=== PATIENT | female | born 1975 | race Caucasian/White ===

== ENCOUNTER 2025-05-10 01:01 | Inpatient (IN) | payer OTHER ==
--- OUTSIDE RECORDS SUMMARY | 2025-05-10 01:10 | XMS REPORT | Continuity of Care Document ---
Author Name Unknown Address [address] [facility] [address] [place] [address] Organization [facility] [place] Address [address] [facility] [address] [place] [address] Care Team Providers Care Barrel Repairer Name Role Phone Eduin Freedman Primary Care Physician + [phone] Karolyn Arceo MD Attending Clinician [phone] Vick Beyer MD Attending Clinician [phone] KAROLYN ARCEO Attending Clinician Unavailable Doctor Unassigned, Bow Attending Clinician U amyailVICK Tubbs Attending Clinician UnavailVICK Lopez Attending Clinician UnavailZehra Jordan Attending Clinician +[phone] SAGAR TRONCOSO Attending Clinician Unavailable SAGAR TRONCOSO Attending Clinician Unavailable Claudine Davis Attending Clinician Unavailable Shaye Wilks MD Attending Clinician [phone] Mark Santiago MD Attending Clinician +[phone] XOCHILT KESSLER Attending Clinician Unavailable XOCHILT KESSLER Attending Clinician Unavailable Cecy Davis Attending Clinician U lina Magallon [facility], Patricia A Attending Clinician Unavail able Laura Arguelles Attending Clinician Unavailkatie Kessler MD, Xochilt Attending Clinician [phone] ALINE BOWDEN Attending Clinician Unavailable Gabby VARGAS, Merrill Attending Clinician [phone] Camden Stokes MD Attending Clinician [phone] Lab, Ang - Db Attending Clinician Unavailable CAMDEN STOKES Attending Clinician Unavailable JULISSA ESPINOZA Attending Clinician UnavailJulissa Beach MD Attending Clinician [phone] Eliazar Marte Attending Clinician Unavailable Cecy Davis Attending Clinician U Vick Ibarra MD Attending Clinician [phone] ZEHRA LOCKETT Attending Clinician Unavailable Zehra Brush Attending Clinician + [phone] Shaye Wilks MD Attending Clinician +[phone] Laura Arguelles Attending Clinician Unavailkatie SIMONS Attending Clinician Unavailable Asa Wolfe MD Attending Clinician [phone] Gail Ellis RN Attending Clinician Unavailabl e ELSIE BOND Attending Clinician Unavailable Fredrick TUBBS, Jovita Mandel Attending Clinician [phone] Mehul Dennison MD Attending Clinician [phone] Elsie Bond MD Attending Clinician + [phone] SANDY THOMPSON Attending Clinician Unavailabl e Pgy4 Attending Clinician Unavailable Sandy Thompson MD Attending Clinician + [phone] Doctor Unassigned, Bow Attending Clinician U SHAYE Winchester Attending Clinician Unavailable ROHAN CHUNG Attending Clinician Unavailable Rohan Chung MD Attending Clinician [phone] Navi Shirley Attending Clinician [phone] SELENA MAJOR Attending Clinician Unavailable Selena Major MD Attending Clinician NAVI AGUDELO Attending Clinician Unavailable KYUNG Attending Clinician Unavailable Claudine Davis Admitting Clinician Unavailable Eduin Freedman Admitting Clinician Unavaila ronald ROUSE_F Admitting Clinician Unavailable VICK BEYER Admitting Clinician UnavailSELENA Torres Admitting Clinician Unavailable KYUNG Admitting Clinician Unavailable Payers Payer Name Policy Type Policy Number Effective Date Expirati on Date Source [employer] DUAL COMPLETE HMO DSNP [id number] 2024 00:00:00 [facility] Dual Complete (HMO-POS D-SNP) 111 [id number] [facility] DUAL COMP HMO-POS D SNP [id number] 2024 00:00:00 2025 00:00:00 [facility] [id number] 2024 00:00:00 INDIGENT PROGRAM [id number] Problems Condition Name Condition Details Condition Category Status Onset Date Resolution Date Last Treatment Date Treating Clinician Comments Source Bipolar disorder Bipolar Disorder Problem Active 2023-08 0 00:00: 00 [facility] History of laparoscop ic adjustable gastric banding History of Laparoscop ic Adjustable Gastric Banding Problem Active 03-28 00:00: 00 [facility] Type 2 diabetes mellitus with hyperglyce latesha, with long-term current use of insulin Type 2 diabetes mellitus with hyperglyce latesha, with long-term current use of insulin Disease Active 12-14 00:00: 00 [facility] Dyslipidem ia Dyslipidem ia Disease Active 12-14 00:00: 00 [facility] Essential hypertensi on Essential hypertensi on Disease Active 12-14 00:00: 00 [facility] Type 2 diabetes mellitus with unspecifie d diabetic retinopath y without macular edema Type 2 diabetes mellitus with unspecifie d diabetic retinopath y without macular edema Disease Active 12-14 00:00: 00 [facility] Tachycardi a Tachycardi a Problem Active 2022-08 2 [facility] Other specified diabetes mellitus with other specified complicati on, unspecifie d whether gaming investigator insulin use Other specified diabetes mellitus with other specified complicati on, unspecifie d whether gaming investigator insulin use Disease Active 2022-08 2 00:00: 00 [facility] Microscopi c hematuria Microscopi c Hematuria Problem Active 2022-08 0-03 00:00: 00 [facility] Migraine Migraine Problem Active 2022-08 0-02 [facility] Neuropathy due to diabetes mellitus Neuropathy Due to Diabetes Mellitus Problem Active 2022-08 0-02 00:00: [facility] Seasonal allergy Seasonal Allergy Problem Active 2022-08 0-02 00:00: 00 [facility] Abnormal vaginal bleeding Abnormal Vaginal Bleeding Problem Active 2022-08 0-02 00:00: 00 [facility] Malaise Malaise Problem Active 2022-08 0-02 00:00: 00 [facility] Amputated below knee Amputated below Knee Problem Active 2022-08 0-02 00:00: 00 [facility] Long-term drug therapy Long-term Drug Therapy Problem Active 2022-08 0-02 00:00: 00 [facility] Prosthesis care Prosthesis Care Problem Active 2022-08 0-02 00:00: 00 [facility] Genital herpes simplex Genital Herpes Simplex Problem Active 2022-08 0-02 00:00: 00 [facility] Insulin treated type 2 diabetes mellitus Insulin Treated Type 2 Diabetes Mellitus Problem Active 2022-08 0-02 00:00: 00 [facility] Mixed anxiety and depressive disorder Mixed Anxiety and Depressive Disorder Problem Active 2022-08 0-02 00:00: 00 [facility] Insomnia Insomnia Problem Active 2022-08 0-02 00:00: 00 [facility] Bipolar 1 disorder Bipolar 1 disorder Disease Active 11-26 00:00: 00 [facility] Major depression Major depression Disease Active 11-26 00:00: 00 [facility] Severe anxiety Severe anxiety Disease Active 11-26 00:00: 00 [facility] Supervisio n of high-risk of elderly primigravi da Supervisio n of high-risk of elderly primigravi da Disease Active 2013-08 00:00: 00 [facility] HSV infection HSV infection Disease Active 2013-08 00:00: 00 [facility] H/O laparoscop ic adjustable gastric banding H/O laparoscop ic adjustable gastric banding Disease Active 2013-08 00:00: 00 [facility] History of hypertensi on History of hypertensi on Disease Active 2013-08 00:00: 00 [facility] History of diabetes mellitus History of diabetes mellitus Disease Active 2013-08 00:00: 00 [facility] Obesity complicati ng , childbirth , or puerperium , antepartum Obesity complicati ng , childbirth , or puerperium , antepartum Disease Active 2013-08 00:00: 00 Overview: Formattin g of this note might be different from the original. ICD10 Diagnosis Term Coding Tech Utility [facility] Lump or mass in breast Lump or mass in breast Disease Active 2013-08 00:00: 00 Overview: Formattin g of this note might be different from the original. Right breast, per patient, assess at next visit. NA PEPE CNM 4 2:[address] [facility] Glucosuria Glucosuria Disease Active 2013-08 00:00: 00 [facility] Rubella non-immune status, antepartum Rubella non-immune status, antepartum Disease Active 2013-08 00:00: 00 [facility] [id number] Severe episode of recurrent major depressive disorder, without psychotic features Problem [facility] [id number] group home (current) use of insulin Problem [facility] [id number] Type 2 diabetes mellitus with hyperglyce latesha Problem [facility] [id number] Neuropathy Problem [facility] [id number] Status post below-knee amputation of left lower extremity Problem [facility] Allergies, Adverse Reactions, Alerts Allergy Name Allergy Type Status Severity Reaction(s) Onset Date Inactive Date Treating Clinician Comments Source No Known Allergie s DA Active U 7- 00:00: 00 [facility] COCONUT DRUG INGREDI Active Anaphylaxis 0 12-14 00:00: 00 [facility] PEACH DRUG INGREDI Active Hives 0 12-14 00:00: 00 [facility] STRAWBER RY DRUG INGREDI Active Hives 0 12-14 00:00: 00 [facility] Coconut Propensi ty to adverse reaction s Active Swelling 12-14 00:00: 00 [facility] [place] Propensi ty to adverse reaction s Active Swelling 0 12-14 00:00: 00 [facility] Strawber ry Propensi ty to adverse reaction s Active Rash 12-14 00:00: 00 [facility] coconut allergen ic extract coconut allergen ic extract Active Unknown [facility] NO KNOWN ALLERGIE S Drug Class Active [facility] Family History Family Member Diagnosis Comments Start Date Stop Date Sourc e Maternal aunt Diabetes [facility] Maternal aunt Heart [facility] Maternal [facility] Maternal grandmother Arthritis [facility] Maternal grandmother Cancer [facility] Maternal grandmother Diabetes [facility] Maternal grandmother Heart [facility] Maternal grandmother High cholesterol [facility] Maternal grandmother Hypertension [facility] Maternal [facility] uncle [facility] Maternal [facility] Natural mother Arthritis [facility] Natural mother Hy[facility] Paternal aunt Breast [facility] Paternal grandfather Cancer [facility] Social History Social Habit Start Date Stop Date Quantity Comments Source ASSERTION Not [facility] History of Social function 2025-01-30 00:00:00 2025-01-30 00:00:00 [facility] Alcoholic beverage intake 2024-09-27 00:00:00 2024-09-27 00:00:00 Current non-drinker of alcohol (finding) [facility] Alcohol intake 2023-12-15 00:00:00 2023-12-15 00:00:00 Current non-drinker of alcohol (finding) [facility] History of Tobacco Use 1991-08-21 00:00:00 2015-08-21 00:00:00 [facility] Tobacco use and exposure 2014-08-01 00:00:00 2014-08-01 00:00:00 Smokeless tobacco non-user [facility] Smoking Status Start Date Stop Date Source Former Smoker 2025-03-28 00:00:00 2025-03-28 00:00:00 [facility] Never smoked tobacco [facility] Medications Ordered Medication Name Filled Medication Name Start Date Stop Date Current Medication? Ordering Clinician Indication Dosage Frequency Signature (SIG) Comments Components Source Blood-Gluco se Sensor (DEXCOM G7 SENSOR) Ciara 04-08 00:00: 00 Yes [id number] 9109 Change sensor every [address] [facility] Lyrica 200 MG Lyrica 200 MG 03-28 00:00: 00 No 1{capsu le} BID Lyrica 200 MG Blood-Gluco se Sensor (DEXCOM G7 SENSOR) Ciara 10-05 00:00: 00 Yes [id number] 9109 Change sensor every [address] [facility] Blood-Gluco se Sensor (DEXCOM G7 SENSOR) Ciara 10-05 00:00: 00 04-08 00:00 :00 No [id number] 9109 Change sensor every [address] [facility] pregabalin 200 mg capsule 2-06 00:00: 00 Yes [id number] 9106 200mg Take 1 capsule by mouth in the morning and 1 capsule in the evening. [facility] glucagon (BAQSIMI) 3 mg/actuatio n nasal spray 2023-08 030 00:00: 00 Yes [id number] 9109 3mg Use 3 mg in each nostril as needed (For severe hypoglycem ia or symptomati c not improving with food). [facility] insulin pump cart,auto,B T,G6/7 (OMNIPOD 5 G6-G7 PODS, GEN 5,) [facility] 2023-08 0 00:00: 00 Yes [id number] 9109 1{each} inject 1 Each under the skin every 72 (seventy-t wo) hours. [facility] atorvastati n 20 mg tablet 2023-08 0 00:00: 00 Yes [id number] 20mg Take 1 tablet by mouth at bedtime. [facility] insulin car body mechanic cart,aut,G6 /7,cntr (OMNIPOD 5 G6-G7 INTRO KT,GEN5,) [facility] 2023-08 0-16 00:00: 00 Yes [id number] 9109 1{each} inject 1 Each under the skin every 72 (seventy-t wo) hours. [facility] insulin pump cart,auto,B T,G6/7 (OMNIPOD 5 G6-G7 PODS, GEN 5,) [facility] 2023-08 0-16 00:00: 00 Yes [id number] 9109 1{each} inject 1 Each under the skin every 72 (seventy-t wo) hours. [facility] insulin pump cart,auto,B T,G6/7 (OMNIPOD 5 G6-G7 PODS, GEN 5,) [facility] 2023-08 0-16 00:00: 00 06-11 00:00 :00 No [id number] 9109 1{each} inject 1 Each under the skin every 72 (seventy-t wo) hours. [facility] DEXCOM G7 SENSOR Ciara 08 00:00: 00 10-05 00:00 :00 No [id number] 9109 USE DIRECTED, CHANGE SENSOR EVERY [address] [facility] pregabalin 100 mg capsule 03-16 00:00: 00 09-27 00:00 :00 No [id number] 100mg Take 1 capsule by mouth in the morning and 1 capsule in the evening. [facility] triamcinolo ne acetonide (KENALOG) injection 16 mg 02-15 20:15: 00 02-15 19:24 :00 No [id number] 16mg 16 mg, Intramuscu lar, ONCE, 1 dose, On [place] 02/16/24 at 1515, Routine [facility] Blood-Gluco se Meter,Shayne nuous (DEXCOM G7 MINERALOGY TEACHER) [facility] 12-14 00:00: 00 Yes [id number] 9109 Use as directed to check blood sugars DX E11.65 [facility] Blood-Gluco se Meter,Shayne nuous (DEXCOM G7 MINERALOGY TEACHER) [facility] 12-14 00:00: 00 Yes [id number] Use as directed to check blood sugars DX E11.65 [facility] buPROPion XL 300 mg 24 hr tablet 12-14 00:00: 00 07-30 00:00 :00 No [id number] 300mg Take 1 tablet by mouth in the morning. [facility] insulin degludec (TRESIBA FLEXTOUCH U-100) 100 unit/mL (3 mL) InPn 12-14 00:00: 00 07-30 00:00 :00 No [id number] 9109 34U inject 34 Units under the skin in the morning. Please take HALF dose if blood glucose 80 - 120 mg/dL, HOLD if less than 80. [facility] Blood-Gluco se Sensor (DEXCOM G7 SENSOR) Ciara 12-14 00:00: 00 03-29 00:00 :00 No [id number] 1{each} 1 Each by subcutaneo us (via wearable injector) route every 10 (ten) days. Use as directed every [address] [facility] insulin lispro (HUMALOG KWIKPEN INSULIN) 200 unit/mL (3 mL) InPn 12-04 00:00: 00 07-30 00:00 :00 No [id number] 9109 6U inject 6 Units under the skin in the morning and 6 Units at noon and 6 Units in the evening. inject with meals. Please take HALF if blood glucose 80 - 120 mg/dL, HOLD DOSE if BG < [address] [facility] Insulin [place], Disposable, (BD INSULIN PEN NEEDLE UF) 31 gauge x 5/16" Ndle 12-04 00:00: 00 06-06 00:00 :00 No [id number] 9109 Use as directed to administer [facility] Blood-Gluco se Meter,Shayne nuous (DEXCOM G7 MINERALOGY TEACHER) [facility] 12-04 00:00: 00 12-14 00:00 :00 No Use as directed to check blood sugars DX E11.65 [facility] Blood-Gluco se Sensor (DEXCOM G7 SENSOR) Ciara 12-04 00:00: 00 12-14 00:00 :00 No [id number] 9109 Use as directed every [address] [facility] buPROPion XL 300 mg 24 hr tablet 12-04 00:00: 00 12-14 00:00 :00 No 300mg Take 1 tablet by mouth in the morning. [facility] traZODone 50 mg tablet 12-01 00:00: 00 Yes 100mg Take 2 tablets by mouth at bedtime. [facility] Blood-Gluco se Meter,Shayne nuous (DEXCOM G7 MINERALOGY TEACHER) [facility] 12-01 00:00: 00 12-04 00:00 :00 No Use as directed to check blood sugars DX E11.65 [facility] buPROPion XL 300 mg 24 hr tablet 12-01 00:00: 00 12-04 00:00 :00 No 300mg Take 1 tablet by mouth in the morning. [facility] Insulin [place], Disposable, (BD INSULIN PEN NEEDLE UF) 31 gauge x 5/16" Ndle 12 00:00: 00 12-04 00:00 :00 No [id number] Use as directed to administer [facility] insulin lispro (HUMALOG KWIKPEN INSULIN) 200 unit/mL (3 mL) InPn -12 00:00: 00 12-04 00:00 :00 No [id number] 6U inject 6 Units under the skin in the morning and 6 Units at noon and 6 Units in the evening. inject with meals. Please take HALF if blood glucose 80 - 120 mg/dL, HOLD DOSE if BG < [address] [facility] triamcinolo ne acetonide (KENALOG) injection 40 mg 11-16 16:00: 00 11-16 15:10 :00 No 40mg 40 mg, Intramuscu lar, ONCE, 1 dose, On Tue11/17/23 at 1100, Routine [facility] Blood-Gluco se Meter,Shayne rivera (DEXCOM G7 MINERALOGY TEACHER) Misc 2-07 00:00: 00 11-30 00:00 :00 No Use as directed to check blood sugars DX E11.65 [facility] celecoxib (CELEBREX) capsule 200 mg - 05:00: 00 09-06 04:13 :00 No 200mg 200 mg, Oral, ONCE NOW, 1 dose, On Tue09/05/23 at 2300, Routine [facility] traZODone (DESYREL) tablet 50 mg -16 03:30: 00 09-06 02:43 :00 No 50mg 50 mg, Oral, ONCE NOW, 1 dose, On Tue09/05/23 at 2130, Routine [facility] insulin regular human (HUMULIN R) injection 6 Units -15 23:15: 00 09-05 22:43 :00 No 6U 6 Units, Slow IV Push, ONCE, 1 dose, On Tue09/05/23 at 1715, Routine
Indicatio n for insulin: Hyperglyce latesha [facility] NaCl 0.9% (NS) bolus infusion 1,000 mL 09-05 22:30: 00 09-06 01:38 :00 No 1000mL at 999 mL/hr, 1,000 mL, IV Infusion, ONCE, 1 dose, On Tue09/05/23 at 1630, STAT [facility] citalopram 10 mg tablet 2022-08 15:11: Yes 10mg Take 1 tablet by mouth in the morning. [facility] clonazePAM (KLONOPIN) 0.5 mg tablet 2022-08 15:11: 12-01 00:00 :00 No Take 1 tablet as needed by oral route. [facility] insulin degludec (TRESIBA FLEXTOUCH U-100) 100 unit/mL (3 mL) InPn 2022-08 00:00: 00 12-14 00:00 :00 No [id number] 30U inject 30 Units under the skin in the morning. [facility] Blood-Gluco se Sensor (DEXCOM G7 SENSOR) Ciara 2022-08 00:00: 00 12-04 00:00 :00 No [id number] Use as directed every [address] [facility] levonorgest reL (MIRENA) IUD 1 Device 2022-08 21:30: 00 07-13 20:42 :00 No [id number] 1{devic e} [facility] buPROPion XL 150 mg 24 hr tablet 2022-08 00:00: 00 12-01 00:00 :00 No 150mg Take 1 tablet by mouth in the morning. [facility] glipiZIDE 5 mg tablet 2022-08 00:00: 00 08-02 00:00 :00 No Take 2 tablets every day by oral route in the morning for [address] [facility] FARXIGA 10 mg tablet 2023-1 0-02 00:00: 00 12-25 00:00 :00 No 10mg Take 1 tablet by mouth in the morning. [facility] multivitami n ( VITAMIN) tablet 2013-08 00:00: 00 06-10 00:00 :00 No 1{tbl} Take 1 Tab by mouth daily. [facility] celecoxib 200 mg capsule TAKE 1 CAPSULE BY MOUTH TWICE DAILY celecoxib 200 mg capsule TAKE 1 CAPSULE BY MOUTH TWICE DAILY No celecoxib 200 mg capsule TAKE 1 CAPSULE BY MOUTH TWICE DAILY [facility] Dexcom G7 Sensor device CHANGE SENSOR EVERY 10 DAYS Dexcom G7 Sensor device CHANGE SENSOR EVERY 10 DAYS No Dexcom G7 Sensor device CHANGE SENSOR EVERY 10 DAYS [facility] trazodone 100 mg tablet TAKE 1 TABLET BY MOUTH EVERY NIGHT AT BEDTIME NEEDED trazodone 100 mg tablet TAKE 1 TABLET BY MOUTH EVERY NIGHT AT BEDTIME NEEDED No 1 Q1D trazodone 100 mg tablet TAKE 1 TABLET BY MOUTH EVERY NIGHT AT BEDTIME NEEDED [facility] Tresiba FlexTouch U-100 insulin 100 unit/mL (3 mL) subcutaneou s pen INJECT 34 UNITS UNDER THE SKIN EVERY DAY Tresiba FlexTouch U-100 insulin 100 unit/mL (3 mL) subcutaneou s pen INJECT 34 UNITS UNDER THE SKIN EVERY DAY No Tresiba FlexTouch U-100 insulin 100 unit/mL (3 mL) subcutaneo us pen INJECT 34 UNITS UNDER THE SKIN EVERY DAY [facility] citalopram 40 mg tablet TAKE 1 TABLET BY MOUTH DAILY citalopram 40 mg tablet TAKE 1 TABLET BY MOUTH DAILY No citalopram 40 mg tablet TAKE 1 TABLET BY MOUTH DAILY [facility] dapaglifloz in propanediol 10 mg tablet TAKE 1 TABLET BY MOUTH IN THE MORNING dapaglifloz in propanediol 10 mg tablet TAKE 1 TABLET BY MOUTH IN THE MORNING No dapagliflo zin propanedio l 10 mg tablet TAKE 1 TABLET BY MOUTH IN THE MORNING [facility] Dexcom G7 Fitting Room Attendant USE DIRECTED TO CHECK BLOOD SUGARS Dexcom G7 Fitting Room Attendant USE DIRECTED TO CHECK BLOOD SUGARS No Dexcom G7 Fitting Room Attendant USE DIRECTED TO CHECK BLOOD SUGARS [facility] hydroxyzine pamoate 25 mg capsule TAKE 1 CAPSULE BY MOUTH THREE TIMES DAILY NEEDED FOR ITCHING hydroxyzine pamoate 25 mg capsule TAKE 1 CAPSULE BY MOUTH THREE TIMES DAILY NEEDED FOR ITCHING No hydroxyzin e pamoate 25 mg capsule TAKE 1 CAPSULE BY MOUTH THREE TIMES DAILY NEEDED FOR ITCHING [facility] Latuda 20 mg tablet Take 1 tablet every day by oral route. Latuda 20 mg tablet Take 1 tablet every day by oral route. No 1 Q1D Latuda 20 mg tablet Take 1 tablet every day by oral route. [facility] Celecoxib 200 MG Celecoxib 200 MG No Celecoxib 200 MG Atorvastati n Calcium 20 MG Atorvastati n Calcium 20 MG No 1{table t} QD Atorvastat in Calcium 20 MG Dapaglifloz in Propanediol 10 MG Dapaglifloz in Propanediol 10 MG No 1{table t} QD Dapagliflo zin Propanedio l 10 MG Pregabalin 100 MG Pregabalin 100 MG No Pregabalin 100 MG Latuda 20 MG Latuda 20 MG No 1{table t_in_th e_eveni ng_with _food} QD Latuda 20 MG Citalopram Hydrobromid e 10 MG Citalopram Hydrobromid e 10 MG No 1{table t} QD Citalopram Hydrobromi de 10 MG Omnipod 5 [id number] Intro Gen 5 - Omnipod 5 [id number] Intro Gen 5 - No Omnipod 5 [id number] Intro Gen 5 - traZODone HCl 100 MG traZODone HCl 100 MG No 1{table t_at_be dtime} QD traZODone HCl 100 MG hydrOXYzine Pamoate 50 MG hydrOXYzine Pamoate 50 MG No 1{capsu le_at_b edtime_ as_need ed} BID hydrOXYzin e Pamoate 50 MG Insulin Lispro 100 UNIT/ML Insulin Lispro 100 UNIT/ML No Insulin Lispro 100 UNIT/ML Immunizations Ordered Immunization Name Filled Immunization Name Date Status Comments Source Influenza Virus Vaccine Quad IM Multi-dose 6+ MO 2014-08-01 00:00:00 Completed [facility] Influenza Virus Vaccine Quad IM Multi-dose 6+ MO Unknown Completed [facility] Influenza Virus Vaccine Quad IM Multi-dose 6+ MO Unknown Completed [facility] Influenza Virus Vaccine Quad IM Multi-dose 6+ MO Unknown Completed [facility] Influenza Virus Vaccine Quad IM Multi-dose 6+ MO Unknown Completed [facility] Influenza Virus Vaccine Quad IM Multi-dose 6+ MO Unknown Completed [facility] Influenza Virus Vaccine Quad IM Multi-dose 6+ MO Unknown Completed [facility] Influenza Virus Vaccine Quad IM Multi-dose 6+ MO Unknown Completed [facility] Influenza Virus Vaccine Quad IM Multi-dose 6+ MO Unknown Completed [facility] Influenza Virus Vaccine Quad IM Multi-dose 6+ MO Unknown Completed [facility] Influenza Virus Vaccine Quad IM Multi-dose 6+ MO Unknown Completed [facility] Influenza Virus Vaccine Quad IM Multi-dose 6+ MO Unknown Completed [facility] Influenza Virus Vaccine Quad IM Multi-dose 6+ MO Unknown Completed [facility] Influenza Virus Vaccine Quad IM Multi-dose 6+ MO Unknown Completed [facility] Influenza Virus Vaccine Quad IM Multi-dose 6+ MO Unknown Completed [facility] Influenza Virus Vaccine Quad IM Multi-dose 6+ MO Unknown Completed [facility] Influenza Virus Vaccine Quad IM Multi-dose 6+ MO Unknown Completed [facility] Influenza Virus Vaccine Quad IM Multi-dose 6+ MO Unknown Completed [facility] Influenza Virus Vaccine Quad IM Multi-dose 6+ MO Unknown Completed [facility] Influenza Virus Vaccine Quad IM Multi-dose 6+ MO Unknown Completed [facility] Influenza Virus Vaccine Quad IM Multi-dose 6+ MO Unknown Completed [facility] Influenza Virus Vaccine Quad IM Multi-dose 6+ MO Unknown Completed [facility] Influenza Virus Vaccine Quad IM Multi-dose 6+ MO Unknown Completed [facility] Influenza Virus Vaccine Quad IM Multi-dose 6+ MO Unknown Completed [facility] Influenza Virus Vaccine Quad IM Multi-dose 6+ MO Unknown Completed [facility] Influenza Virus Vaccine Quad IM Multi-dose 6+ MO Unknown Completed [facility] Influenza Virus Vaccine Quad IM Multi-dose 6+ MO Unknown Completed [facility] Influenza Virus Vaccine Quad IM Multi-dose 6+ MO Unknown Completed [facility] Influenza Virus Vaccine Quad IM Multi-dose 6+ MO Unknown Completed [facility] Influenza Virus Vaccine Quad IM Multi-dose 6+ MO Unknown Completed [facility] Influenza Virus Vaccine Quad IM Multi-dose 6+ MO Unknown Completed [facility] Influenza Virus Vaccine Quad IM Multi-dose 6+ MO Unknown Completed [facility] Influenza Virus Vaccine Quad IM Multi-dose 6+ MO Unknown Completed [facility] Influenza Virus Vaccine Quad IM Multi-dose 6+ MO Unknown Completed [facility] Influenza Virus Vaccine Quad IM Multi-dose 6+ MO Unknown Completed [facility] Influenza Virus Vaccine Quad IM Multi-dose 6+ MO Unknown Completed [facility] Influenza Virus Vaccine Quad IM Multi-dose 6+ MO Unknown Completed [facility] Influenza Virus Vaccine Quad IM Multi-dose 6+ MO Unknown Completed [facility] Influenza Virus Vaccine Quad IM Multi-dose 6+ MO Unknown Completed [facility] Influenza Virus Vaccine Quad IM Multi-dose 6+ MO Unknown Completed [facility] Influenza Virus Vaccine Quad IM Multi-dose 6+ MO Unknown Completed [facility] Influenza Virus Vaccine Quad IM Multi-dose 6+ MO Unknown Completed [facility] Influenza Virus Vaccine Quad IM Multi-dose 6+ MO Unknown Completed [facility] Influenza Virus Vaccine Quad IM Multi-dose 6+ MO Unknown Completed [facility] Influenza Virus Vaccine Quad IM Multi-dose 6+ MO Unknown Completed [facility] Influenza Virus Vaccine Quad IM Multi-dose 6+ MO Unknown Completed [facility] Influenza Virus Vaccine Quad IM Multi-dose 6+ MO Unknown Completed [facility] Influenza Virus Vaccine Quad IM Multi-dose 6+ MO Unknown Completed [facility] Influenza Virus Vaccine Quad IM Multi-dose 6+ MO Unknown Completed [facility] Influenza Virus Vaccine Quad IM Multi-dose 6+ MO Unknown Completed [facility] Influenza Virus Vaccine Quad IM Multi-dose 6+ MO Unknown Completed [facility] Influenza Virus Vaccine Quad IM Multi-dose 6+ MO Unknown Completed [facility] Influenza Virus Vaccine Quad IM Multi-dose 6+ MO Unknown Completed [facility] Influenza Virus Vaccine Quad IM Multi-dose 6+ MO Unknown Completed [facility] Influenza Virus Vaccine Quad IM Multi-dose 6+ MO Unknown Completed [facility] Influenza Virus Vaccine Quad IM Multi-dose 6+ MO Unknown Completed [facility] Influenza Virus Vaccine Quad IM Multi-dose 6+ MO Unknown Completed [facility] Influenza Virus Vaccine Quad IM Multi-dose 6+ MO Unknown Completed [facility] Influenza Virus Vaccine Quad IM Multi-dose 6+ MO Unknown Completed [facility] Vital Signs Vital Name Observation Time Observation Value Comments S milagro height 2025-03-28 09:15:00 72 [in_i] Commo n [facility] weight 2025-03-28 09:15:00 203.8 [lb_av] Co mmon [facility] temperature 2025-03-28 09:15:00 97.8 [degF] Com mon [facility] bmi 2025-03-28 09:15:00 27.64 kg/m2 Comm on [facility] oximetry 2025-03-28 09:15:00 95 % Commo n [facility] blood pressure systolic 2025-03-28 09:15:00 138 mm[Hg] [facility] blood pressure diastolic 2025-03-28 09:15:00 68 mm[Hg] [facility] Systolic blood pressure 2025-01-30 20:01:00 137 mm[Hg] [facility] Diastolic blood pressure 2025-01-30 20:01:00 89 mm[Hg] [facility] Heart rate 2025-01-30 20:01:00 110 /min [facility] Body height 2025-01-30 20:01:00 182.9 cm per patient [facility] Body weight 2025-01-30 20:01:00 92.987 kg per patient [facility] BMI 2025-01-30 20:01:00 27.80 kg/m2 [facility] Oxygen saturation in Arterial blood by Pulse oximetry 2025-01-30 20:01:00 100 /min [facility] Systolic blood pressure 2024-09-27 21:29:00 154 mm[Hg] [facility] Diastolic blood pressure 2024-09-27 21:29:00 87 mm[Hg] [facility] Heart rate 2024-09-27 21:29:00 110 /min [facility] Respiratory rate 2024-09-27 21:29:00 18 /min [facility] Body height 2024-09-27 21:29:00 182.9 cm [facility] Body weight 2024-09-27 21:29:00 99.791 kg [facility] BMI 2024-09-27 21:29:00 29.84 kg/m2 [facility] Oxygen saturation in Arterial blood by Pulse oximetry 2024-09-27 21:29:00 99 /min [facility] Body weight 2024-06-28 16:13:00 92.987 kg [facility] BMI 2024-06-28 16:13:00 27.80 kg/m2 [facility] Body weight 2024-06-21 14:26:00 92.987 kg [facility] BMI 2024-06-21 14:26:00 27.80 kg/m2 [facility] Body weight 2024-06-19 18:51:00 92.987 kg [facility] BMI 2024-06-19 18:51:00 27.80 kg/m2 Univ [facility] Systolic blood pressure 2024-06-14 19:54:00 133 mm[Hg] [facility] Diastolic blood pressure 2024-06-14 19:54:00 75 mm[Hg] [facility] Heart rate 2024-06-14 19:54:00 86 /min [facility] Body height 2024-06-14 19:54:00 182.9 cm [facility] Body weight 2024-06-14 19:54:00 92.987 kg [facility] BMI 2024-06-14 19:54:00 27.80 kg/m2 Univ [facility] Oxygen saturation in Arterial blood by Pulse oximetry 2024-06-14 19:54:00 98 /min [facility] Body height 2024-06-12 20:06:00 182.9 cm [facility] Body weight 2024-06-12 20:06:00 97.07 kg [facility] BMI 2024-06-12 20:06:00 29.02 kg/m2 [facility] BMI (Body Mass Index) 2024-06-11 00:00:00 28.9 kg/m2 [facility] BP Systolic 2024-06-11 00:00:00 132 mm[Hg] [facility] Body Weight 2024-06-11 00:00:00 3408 [oz_av] [facility] Height 2024-06-11 00:00:00 72 [in_i] [facility] BP Diastolic 2024-06-11 00:00:00 82 mm[Hg] [facility] Systolic blood pressure 2024-06-06 19:28:00 155 mm[Hg] [facility] Diastolic blood pressure 2024-06-06 19:28:00 94 mm[Hg] [facility] Heart rate 2024-06-06 19:28:00 95 /min [facility] Respiratory rate 2024-06-06 19:28:00 16 /min [facility] Body height 2024-06-06 19:28:00 182.9 cm [facility] Body weight 2024-06-06 19:28:00 95.255 kg [facility] BMI 2024-06-06 19:28:00 28.48 kg/m2 [facility] Oxygen saturation in Arterial blood by Pulse oximetry 2024-06-06 19:28:00 97 /min [facility] Body weight 2024-03-15 19:39:00 92.987 kg [facility] BMI 2024-03-15 19:39:00 27.80 kg/m2 [facility] Systolic blood pressure 2024-02-16 19:03:00 114 mm[Hg] [facility] Diastolic blood pressure 2024-02-16 19:03:00 76 mm[Hg] [facility] Heart rate 2024-02-16 19:03:00 90 /min [facility] Body height 2024-02-16 19:03:00 182.9 cm [facility] Body weight 2024-02-16 19:03:00 92.987 kg [facility] BMI 2024-02-16 19:03:00 27.80 kg/m2 [facility] Oxygen saturation in Arterial blood by Pulse oximetry 2024-02-16 19:03:00 95 /min [facility] Systolic blood pressure 2024-02-14 15:57:00 114 mm[Hg] [facility] Diastolic blood pressure 2024-02-14 15:57:00 76 mm[Hg] Abercrombie o [facility] Heart rate 2024-02-14 15:57:00 90 /min Unive [facility] Body height 2024-02-14 15:57:00 182.9 cm [facility] Body weight 2024-02-14 15:57:00 93.895 kg [facility] BMI 2024-02-14 15:57:00 28.07 kg/m2 [facility] Oxygen saturation in Arterial blood by Pulse oximetry 2024-02-14 15:57:00 95 /min [facility] Systolic blood pressure 2023-12-02 18:43:00 111 mm[Hg] [facility] Diastolic blood pressure 2023-12-02 18:43:00 74 mm[Hg] [facility] Heart rate 2023-12-02 18:43:00 94 /min [facility] Body height 2023-12-02 18:43:00 182.9 cm [facility] Body weight 2023-12-02 18:43:00 91.627 kg [facility] BMI 2023-12-02 18:43:00 27.40 kg/m2 [facility] Oxygen saturation in Arterial blood by Pulse oximetry 2023-12-02 18:43:00 96 /min [facility] Body Weight 2023-11-22 00:00:00 2768 [oz_av] Mariah machuca [facility] Height 2023-11-22 00:00:00 72 [in_i] Cipriano amanda [facility] BP Systolic 2023-11-22 00:00:00 134 mm[Hg] [facility] BP Diastolic 2023-11-22 00:00:00 86 mm[Hg] [facility] BMI (Body Mass Index) 2023-11-22 00:00:00 23.5 kg/m2 [facility] Systolic blood pressure 2023-11-17 14:37:00 126 mm[Hg] [facility] Diastolic blood pressure 2023-11-17 14:37:00 81 mm[Hg] [facility] Heart rate 2023-11-17 14:37:00 80 /min Unive [facility] Body weight 2023-11-17 14:37:00 84.823 kg [facility] BMI 2023-11-17 14:37:00 25.36 kg/m2 [facility] Systolic blood pressure 2023-10-05 19:42:00 126 mm[Hg] [facility] Diastolic blood pressure 2023-10-05 19:42:00 81 mm[Hg] [facility] Heart rate 2023-10-05 19:42:00 98 /min Unive [facility] Body height 2023-10-05 19:42:00 182.9 cm [facility] Body weight 2023-10-05 19:42:00 84.823 kg 187 lb [facility] BMI 2023-10-05 19:42:00 25.36 kg/m2 [facility] Heart rate 2023-09-25 20:23:00 96 /min [facility] Body temperature 2023-09-25 20:23:00 36.83 Nichol [facility] Respiratory rate 2023-09-25 20:23:00 18 /min [facility] Body weight 2023-09-25 20:23:00 74.844 kg [facility] BMI 2023-09-25 20:23:00 22.38 kg/m2 [facility] Oxygen saturation in Arterial blood by Pulse oximetry 2023-09-25 20:23:00 97 /min [facility] Systolic blood pressure 2023-09-25 20:23:00 148 mm[Hg] [facility] Diastolic blood pressure 2023-09-25 20:23:00 90 mm[Hg] [facility] Systolic blood pressure 2023-09-06 04:15:00 116 mm[Hg] [facility] Diastolic blood pressure 2023-09-06 04:15:00 72 mm[Hg] [facility] Heart rate 2023-09-06 04:15:00 93 /min [facility] Body temperature 2023-09-06 04:15:00 36.56 Nichol [facility] Respiratory rate 2023-09-06 04:15:00 16 /min [facility] Oxygen saturation in Arterial blood by Pulse oximetry 2023-09-06 04:15:00 95 /min [facility] Body height 2023-09-05 20:59:00 182.9 cm [facility] Body weight 2023-09-05 20:59:00 74.844 kg [facility] BMI 2023-09-05 20:59:00 22.38 kg/m2 [facility] Systolic blood pressure 2023-08-24 20:09:00 118 mm[Hg] [facility] Diastolic blood pressure 2023-08-24 20:09:00 76 mm[Hg] [facility] Heart rate 2023-08-24 20:09:00 106 /min [facility] Body temperature 2023-08-24 20:09:00 35.67 Nichol [facility] Respiratory rate 2023-08-24 20:09:00 16 /min [facility] Body height 2023-08-24 20:09:00 182.9 cm [facility] Body weight 2023-08-24 20:09:00 78.835 kg [facility] BMI 2023-08-24 20:09:00 23.57 kg/m2 [facility] BMI (Body Mass Index) 2023-08-23 00:00:00 23.1 kg/m2 [facility] Height 2023-08-23 00:00:00 72 [in_i] [facility] BP Diastolic 2023-08-23 00:00:00 72 mm[Hg] Cipriano garcia [facility] Body Weight 2023-08-23 00:00:00 2720 [oz_av] Mariah machuca [facility] BP Systolic 2023-08-23 00:00:00 112 mm[Hg] Agustina justice [facility] Systolic blood pressure 2023-08-02 21:11:00 133 mm[Hg] Abercrombie o [facility] Diastolic blood pressure 2023-08-02 21:11:00 84 mm[Hg] [facility] Heart rate 2023-08-02 21:11:00 109 /min Unive [facility] Body height 2023-08-02 21:11:00 182.9 cm [facility] Body weight 2023-08-02 21:11:00 78.881 kg [facility] BMI 2023-08-02 21:11:00 23.59 kg/m2 [facility] Systolic blood pressure 2023-07-13 18:53:00 125 mm[Hg] [facility] Diastolic blood pressure 2023-07-13 18:53:00 78 mm[Hg] Abercrombie o [facility] Heart rate 2023-07-13 18:53:00 94 /min Unive [facility] Body temperature 2023-07-13 18:53:00 35.61 Nichol [facility] Respiratory rate 2023-07-13 18:53:00 18 /min [facility] Body height 2023-07-13 18:53:00 182.9 cm Univ [facility] Body weight 2023-07-13 18:53:00 82.555 kg [facility] BMI 2023-07-13 18:53:00 24.68 kg/m2 [facility] Body height 2023-06-14 19:22:00 182.9 cm [facility] Body weight 2023-06-14 19:22:00 73.483 kg [facility] BMI 2023-06-14 19:22:00 21.97 kg/m2 [facility] Systolic blood pressure 2023-06-10 20:07:00 133 mm[Hg] [facility] Diastolic blood pressure 2023-06-10 20:07:00 77 mm[Hg] [facility] Heart rate 2023-06-10 20:07:00 107 /min [facility] Body temperature 2023-06-10 20:07:00 34.22 Nichol [facility] Body height 2023-06-10 20:07:00 182.9 cm [facility] Body weight 2023-06-10 20:07:00 74.889 kg [facility] BMI 2023-06-10 20:07:00 22.39 kg/m2 [facility] Body Weight 2023-05-23 00:00:00 2608 [oz_av] [facility] BP Diastolic 2023-05-23 00:00:00 68 mm[Hg] [facility] Height 2023-05-23 00:00:00 72 [in_i] [facility] BMI (Body Mass Index) 2023-05-23 00:00:00 22.1 kg/m2 [facility] BP Systolic 2023-05-23 00:00:00 116 mm[Hg] [facility] Systolic blood pressure 2024-06-14 19:54:00 133 mm[Hg] [facility] Diastolic blood pressure 2024-06-14 19:54:00 75 mm[Hg] [facility] Heart rate 2024-06-14 19:54:00 86 /min [facility] Body height 2024-06-14 19:54:00 182.9 cm [facility] Body weight 2024-06-14 19:54:00 92.987 kg [facility] BMI 2024-06-14 19:54:00 27.80 kg/m2 [facility] Oxygen saturation in Arterial blood by Pulse oximetry 2024-06-14 19:54:00 98 /min [facility] Respiratory rate 2024-06-06 19:28:00 16 /min [facility] Body temperature 2023-09-25 20:23:00 36.83 [facility] Procedures Procedure Date / Time Performed Performing Clinician Source DME/SUPPLY JUSTIFICATION 2025-03-13 19:39:01 Doc tor Unassigned, Bow [facility] POCT HEMOGLOBIN A1C TEST 2024-09-27 00:00:00 Troy Arceo [facility] PANRETINAL PHOTOCOAGULATION - OS - LEFT EYE 2024-06-28 17:50:41 Xochilt Kessler [facility] PANRETINAL PHOTOCOAGULATION - OU - BOTH EYES 2024-06-21 15:59:34 Xochilt Kessler [facility] OCT, RETINA - OU - BOTH EYES 2024-06-19 20:13:26 Xochilt Kessler [facility] MICROALBUMIN URINE 2024-06-11 13:51:00 Mel Pierre [facility] LIPID PANEL (24092)(TOTAL CHOLESTEROL, TRIGLYCERIDES, HDL) 2024-06-11 13:51:00 Merrill Pierre [facility] POCT HEMOGLOBIN A1C TEST 2024-06-06 20:02:00 Troy Arceo [facility] POCT HEMOGLOBIN A1C TEST 2024-06-06 20:02:00 Troy Arceo [facility] REFERRAL- REQUEST/RESPONSE 2024-03-05 16:10:51 D octor Unassigned, Bow [facility] REFERRAL- REQUEST/RESPONSE 2024-02-29 16:54:30 D octor Unassigned, Bow [facility] REFERRAL- REQUEST/RESPONSE 2024-02-24 20:49:46 D octor Unassigned, Bow [facility] POCT HEMOGLOBIN A1C TEST 2024-02-14 15:59:00 Dax Lockett [facility] REFERRAL- REQUEST/RESPONSE 2024-01-27 18:00:51 D octor Unassigned, Bow [facility] REFERRAL- REQUEST/RESPONSE 2024-01-04 19:42:04 D octor Unassigned, Bow [facility] REFERRAL- REQUEST/RESPONSE 2023-12-23 19:45:22 D octor Unassigned, Bow [facility] REFERRAL- REQUEST/RESPONSE 2023-12-20 14:36:55 D octor Unassigned, Bow [facility] REFERRAL- REQUEST/RESPONSE 2023-12-20 14:32:09 D octor Unassigned, Bow [facility] REFERRAL- REQUEST/RESPONSE 2023-12-05 20:30:45 D octor Unassigned, Bow [facility] REFERRAL- REQUEST/RESPONSE 2023-11-30 21:07:17 D octor Unassigned, Bow [facility] REFERRAL- REQUEST/RESPONSE 2023-11-28 15:52:14 D octor Unassigned, Bow [facility] MAMMO, screening, bilateral 2023-11-22 00:00:00 [facility] LDCT, chest, for lung cancer screening 2023-11-22 00:00:00 [facility] XR WRIST 3+ VW LEFT 2023-10-05 20:32:20 Travon Beyer [facility] CONSENT/REFUSAL FOR DIAGNOSIS AND TREATMENT 2023-09-25 20:18:06 Doctor Unassigned, Bow [facility] POCT GLUCOSE (AUTOMATED) 2023-09-06 02:41:00 Jovita Alcala [facility] POCT GLUCOSE (AUTOMATED) 2023-09-06 01:05:00 Jovita Alcala [facility] POCT GLUCOSE (AUTOMATED) 2023-09-05 23:43:00 Jovita Alcala [facility] CREATINE KINASE 2023-09-05 21:18:00 Jovita Alcala [facility] COMP. METABOLIC PANEL (50694) 2023-09-05 21:18:00 Jovita Alcala [facility] SALICYLATE 2023-09-05 21:18:00 Jovita Alcala Un iversity [facility] ETHANOL 2023-09-05 21:18:00 Jovita Alcala Un [facility] CBC WITH DIFF 2023-09-05 21:18:00 [facility] (ID NOW RAPID TESTING) 2023-09-05 21:18:00 Chaoman, Jovita Tequila [facility] URINE DRUG (IMMUNOASSAY) - COMPREHENSIVE DRUG SCREEN W/O REFLEX 2023-09-05 21:18:00 Jovita Alcala [facility] COMP. METABOLIC PANEL ([id number]) 2023-09-05 21:18:00 Jovita Alcala [facility] POCT TEST 2023-09-05 21:17:00 Fredrick Jovitagenet Mandel [facility] CONSENT/REFUSAL FOR DIAGNOSIS AND TREATMENT 2023-09-05 20:51:26 Doctor Unassigned, Bow [facility] PHYSICIAN CERTIFICATION STATEMENT 2023-08-03 06:01:00 Doctor Unassigned, Bow [facility] POCT HEMOGLOBIN A1C TEST 2023-08-02 21:22:00 Prieto Wilks [facility] DISCLOSURE AND CONSENT, MEDICAL AND SURGICAL PROCEDURES 2023-07-13 06:01:00 Doctor Unassigned, Bow [facility] US PELVIS COMPLETE WITH TRANSVAGINAL 2023-07-05 19:50:00 Lisa Haile [facility] URINALYSIS 2023-06-10 21:08:00 Lisa Haile [facility] URINE CULTURE 2023-06-10 21:08:00 Lisa Haile [facility] PAP SMEAR-LIQUID BASED-CP 2023-06-10 21:08:00 Lisa Cavazos [facility] HIGH RISK HPV-THIN PREP 2023-06-10 21:08:00 Lisa Haile [facility] PAP SMEAR-LIQUID BASED-CP 2023-06-10 21:08:00 Lisa Cavazos [facility] DISCLOSURE AND CONSENT, MEDICAL AND SURGICAL PROCEDURES 2023-06-10 05:01:00 Doctor Unassigned, Bow [facility] electrocardiogram 2023-05-23 00:00:00 [facility] GALV ONLY - HIV TYPE 1 AND 2 ANTIBODY TESTING 2014-08-01 17:10:00 Na Pepe [facility] Procedure on Finger [facility] Amputation [facility] Excision, Fusion and Repair of Toes [facility] Maintenance of Gastric Band [facility] Appendectomy [facility] Encounters Start Date/Time End Date/Time Encounter Type Admission Type Attending Clinicians Care Facility Care Department Encounter ID Source 2025-05-01 00:00:00 2025-05-01 13:34:37 Telephone Karolyn Arceo [facility] [id number] [facility] 2025-04-30 00:00:00 2025-04-30 15:55:14 Telephone Vick Beyer [facility] [id number] [facility] 2025-04-25 00:00:00 2025-04-25 13:26:59 Telephone Vick Beyer [facility] [id number] [facility] 2025-03-18 00:00:00 2025-04-20 18:26:35 Patient Secure Msg Doctor Unassigned, Bow Doctor Unassigned, Bow [facility] [id number] [facility] 2025-04-08 00:00:00 2025-04-08 13:15:37 Refill Karolyn Arceo [facility] [id number] [facility] 2025-04-08 00:00:00 2025-04-08 13:14:51 Telephone Karolyn Arceo [facility] [id number] [facility] 2025-03-28 00:00:00 2025-03-28 00:00:00 OFFICE VISIT NEW PT LEVEL 4 STLMLC STLMLC [id number] [facility] 2025-03-28 00:00:00 2025-03-28 00:00:00 (TEL) STLMLC STLC [id number] [facility] 2025-03-08 00:00:00 2025-03-18 15:24:10 Telephone Vick Beyer [facility] 1.2840.114 350.1.13.10 4.2.7.2.[id number] [facility] 2025-03-13 00:00:00 2025-03-15 02:04:51 Orders Only Doctor Unassigned, Bow Doctor Unassigned, Bow [facility] 1.2840.114 350.1.13.10 4.2.7.2.[id number] [facility] 2025-03-13 00:00:00 2025-03-14 07:58:50 Telephone Vick Beyer [facility] 1.2840.114 350.1.13.10 4.2.7.2.[id number] [facility] 2025-03-01 00:00:00 2025-03-01 15:48:22 Telephone Vick Beyer [facility] 1.2840.114 350.1.13.10 4.2.7.2.[id number] [facility] 2024-12-30 00:00:00 2025-02-02 18:23:22 Patient Secure MsVick Albrecht [facility] 1.2.840.114 350.1.13.10 4.2.7.2.[id number] [facility] 2025-01-30 15:00:00 2025-01-30 15:28:28 Office Visit R BEYER VICK BEYER VICK [facility] 1.2.840.114 350.1.13.10 4.2.7.2.[id number] [facility] 2025-01-22 00:00:00 2025-01-22 18:23:50 Refill Zehra Lockett [facility] 1..840.114 350.1.13.10 4.2.7.2.[id number] [facility] 2025-01-17 10:30:00 2025-01-17 10:30:00 Outpatient R SAGAR TRONCOSO SELENA [facility] [id number] [facility] 2025-01-15 10:45:00 2025-01-15 10:45:00 Outpatient R VICK BEYER CRAIG [facility] [id number] [facility] 2025-01-09 14:00:00 2025-01-09 14:00:00 Outpatient R VICK BEYER CRAIG [facility] [id number] [facility] 2024-12-10 14:00:00 2024-12-10 14:00:00 Outpatient KAROLYN ARTHUR [facility] [id number] [facility] 2024-10-31 03:32:00 2024-11-03 15:30:00 Inpatient EM Claudine Davis HCACL INTE.02 [id number] [facility] 2024-10-25 00:00:00 2024-10-25 15:29:51 [facility]phone [facility] 1.2.840.114 350.1.13.10 4.2.7.2.[id number] [facility] 2024-10-25 00:00:00 2024-10-25 11:27:50 Telephone Shaye Wilks [facility] 1.2.840.114 350.1.13.10 4.2.7.2.[id number] [facility] 2024-10-22 00:00:00 2024-10-22 15:33:49 Telephone Karolyn Arceo [facility] 1.2.840.114 350.1.13.10 4.2.7.2.[id number] [facility] 2024-10-16 00:00:00 2024-10-17 08:26:31 Mark Mcintosh [facility] 1.2.840.114 350.1.13.10 4.2.7.2.[id number] [facility] 2024-01-04 00:00:00 2024-10-06 07:46:51 Orders Only Doctor Unassigned, Bow Doctor Unassigned, Bow [facility] 1.2.840.114 350.1.13.10 4.2.7.2.[id number] [facility] 2024-01-27 00:00:00 2024-10-06 07:34:38 Orders Only Doctor Unassigned, Bow Doctor Unassigned, Bow [facility] 1.2.840.114 350.1.13.10 4.2.7.2.[id number] [facility] 2024-02-24 00:00:00 2024-10-06 07:22:35 Orders Only Doctor Unassigned, Bow Doctor Unassigned, Bow [facility] 1.2.840.114 350.1.13.10 4.2.7.2.[id number] [facility] 2024-02-29 00:00:00 2024-10-06 07:21:28 Orders Only Doctor Unassigned, Bow Doctor Unassigned, Bow [facility] 1.2.840.114 350.1.13.10 4.2.7.2.[id number] [facility] 2024-03-05 00:00:00 2024-10-06 07:18:23 Orders Only Doctor Unassigned, Bow Doctor Unassigned, Bow [facility] 1.2.840.114 350.1.13.10 4.2.7.2.[id number] [facility] 2023-11-28 00:00:00 2024-10-06 02:25:48 Orders Only Doctor Unassigned, Bow Doctor Unassigned, Bow [facility] 1.2.840.114 350.1.13.10 4.2.7.2.[id number] [facility] 2023-11-30 00:00:00 2024-10-06 02:23:56 Orders Only Doctor Unassigned, Bow Doctor Unassigned, Bow [facility] 1.2.840.114 350.1.13.10 4.2.7.2.[id number] [facility] 2023-12-05 00:00:00 2024-10-06 02:20:08 Orders Only Doctor Unassigned, Bow Doctor Unassigned, Bow [facility] 1.2.840.114 350.1.13.10 4.2.7.2.[id number] [facility] 2023-12-20 00:00:00 2024-10-06 02:08:45 Orders Only Doctor Unassigned, Bow Doctor Unassigned, Bow [facility] 1.2.840.114 350.1.13.10 4.2.7.2.[id number] [facility] 2023-12-20 00:00:00 2024-10-06 02:08:18 Orders Only Doctor Unassigned, Bow Doctor Unassigned, Bow [facility] 1.2.840.114 350.1.13.10 4.2.7.2.[id number] [facility] 2023-12-23 00:00:00 2024-10-06 02:04:21 Orders Only Doctor Unassigned, Bow Doctor Unassigned, Bow [facility] 1.2.840.114 350.1.13.10 4.2.7.2.[id number] [facility] 2024-10-05 00:00:00 2024-10-05 16:51:30 Telephone Karolyn Arceo [facility] 1.840.114 350.1.13.10 4.2.7.2.[id number] [facility] 2024-10-05 00:00:00 2024-10-05 16:05:10 Refill Zehra Lockett [facility] 1.2.840.114 350.1.13.10 4.2.7.2.[id number] [facility] 2024-10-04 00:00:00 2024-10-04 15:57:20 Telephone [facility] 1..840.114 350.1.13.10 4.2.7.2.[id number] [facility] 2024-10-02 00:00:00 2024-10-04 08:59:05 [facility] 1.2.840.114 350.1.13.10 4.2.7.2.[id number] [facility] 2024-09-27 15:30:00 2024-09-27 16:07:02 Outpatient R KAROLYN ARCEO [facility] [id number] [facility] 2024-09-27 15:30:00 2024-09-27 16:07:02 [facility] 1.840.114 350.1.13.10 4.2.7.2.[id number] [facility] 2024-08-06 00:00:00 2024-08-06 15:56:47 Patient Secure Msg Marielos [facility] IALTY [place] AND [facility] 1.2.840.114 350.1.13.10 4.2.7.2.[id number] [facility] 2024-07-30 00:00:00 2024-07-30 16:25:20 [facility]phone [facility] 1.2.840.114 350.1.13.10 4.2.7.2.[id number] [facility] 2024-07-30 00:00:00 2024-07-30 15:40:28 [facility] 1.2840.114 350.1.13.10 4.2.7.2.[id number] [facility] 2024-07-30 00:00:00 2024-07-30 15:15:18 Patient Secure Msg Arceo Troykatie Genie [facility] MULTISPEC IALTY CENTER AND [facility] 1.2.840.114 350.1.13.10 4.2.7.2.[id number] [facility] 2024-07-09 00:00:00 2024-07-09 11:56:47 Telephone Cecy Davis Kassandra [facility] 1.2.840.114 350.1.13.10 4.2.7.2.[id number] [facility] 2024-07-03 00:00:00 2024-07-03 10:28:00 Telephone Patricia [facility]allon [facility]ushbu [facility] 1.2.840.114 350.1.13.10 4.2.7.2.[id number] [facility] 2024-07-02 00:00:00 2024-07-02 09:32:59 Telephone Laura Arguelles Melody A [facility] 1.2.840.114 350.1.13.10 4.2.7.2.[id number] [facility] 2024-06-28 10:00:00 2024-06-28 11:27:49 Outpatient R XOCHILT KESSLER RENUKA [facility] [id number] [facility] 2024-06-28 10:00:00 2024-06-28 11:27:49 Office Visit Xochilt Kessler [facility] 1.2840.114 350.1.13.10 4.2.7.2.[id number] [facility] 2024-06-21 09:30:00 2024-06-21 09:45:00 Office Visit [facility] EYE [place] 1..114 350.1.13.10 4.2.7.2.[id number] [facility] 2024-06-21 09:30:00 2024-06-21 09:30:00 Outpatient R ZEEJOHNNYXOCHILT CabreraMIRNA [facility] [id number] [facility] 2024-06-19 00:00:00 2024-06-20 11:51:21 Patient Secure Msg [facility] 1.114 350.1.13.10 4.2.7.2.[id number] [facility] 2024-06-20 00:00:00 2024-06-20 09:06:56 Telephone Kar[facility]yn [facility]ce[facility] 1.114 350.1.13.10 4.2.7.2.[id number] [facility] 2024-06-19 14:00:00 2024-06-19 15:32:33 Outpatient R ZEEMIRNAXOCHILT JAYLA [facility] [id number] [facility] 2024-06-19 14:00:00 2024-06-19 15:32:33 Office Visit [email or web address] [facility] EYE SCHLESWIG 1..114 350.1.13.10 4.2.7.2.[id number] [facility] 2024-06-15 00:00:00 2024-06-15 15:41:35 Telephone Karolyn Arceo [facility] 1.114 350.1.13.10 4.2.7.2.[id number] [facility] 2024-06-14 00:00:00 2024-06-15 15:19:36 Patient Secure Msg Karolyn Arceo [facility] IALTY [place] AND [facility] 1.2.840.114 350.1.13.10 4.2.7.2.[id number] [facility] 2024-06-12 00:00:00 2024-06-15 10:01:[address] [facility] 1.2.840.114 350.1.13.10 4.2.7.2.[id number] [facility] 2024-06-14 15:45:00 2024-06-14 15:08:09 Outpatient VICK RAMIREZ CRAIG [facility] [id number] [facility] 2024-06-14 15:45:00 2024-06-14 15:08:09 Office Visit VICK RAMIREZ CRAIG 1.2.840.1 49725.1.1 3.104.2.7 .3.580964 .[id number] [facility] 2024-06-14 00:00:00 2024-06-14 00:00:00 Travel 1.2.840.1 86614.1.1 3.104.2.7 .3.058863 .8 1.2.840.114 350.1.13.10 4.2.7.3.[id number] [facility] 2024-06-12 13:00:00 2024-06-12 13:00:00 Outpatient ALINE BOWMAN [facility] [id number] 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 2024-06-11 00:00:00 2024-06-11 15:14:30 Telephone Merrill Pierre 1.2.840.1 62582.1.1 3.104.2.7 .3.167345 .[id number] [facility] 2024-06-11 00:00:00 2024-06-11 14:12:17 Telephone Merrill Pierre 1.2.840.1 53668.1.1 3.104.2.7 .3.210093 .[id number] [facility] 2024-06-11 09:00:00 2024-06-11 09:38:33 Bridge Engineer Visit Camden Stokes, Ang - Db 1.2.840.1 32589.1.1 3.104.2.7 .3.362786 .[id number] [facility] 2024-06-11 00:00:00 2024-06-11 09:33:09 Telephone Cecy Davis 1.2.840.1 60591.1.1 3.104.2.7 .3.546535 .[id number] [facility] 2024-06-07 00:00:00 2024-06-11 09:15:30 Telephone Merrill Pierre 1.2.840.1 26314.1.1 3.104.2.7 .3.369960 .[id number] [facility] 2024-06-11 09:00:00 2024-06-11 09:00:00 Outpatient R CAMDEN STOKES [facility] [id number] [facility] 2024-06-11 00:00:00 2024-06-11 00:00:00 Travel 1.2.840.1 49588.1.1 3.104.2.7 .3.511534 .8 1.2.840.114 350.1.13.10 4.2.7.3[id number] [facility] 2024-06-11 00:00:00 2024-06-11 00:00:00 Delia Reis, [facility]-: [address], [address], [place] [address] , Ph. [facility], [facility] [phone] 1021 [facility] 2024-06-07 00:00:00 2024-06-07 16:49:34 Telephone Karolyn Arceo 1.2.840.1 86501.1.1 3.104.2.7 .3.908902 .[id number] [facility] 2024-06-06 14:30:00 2024-06-06 15:37:00 Outpatient R KAROLYN ARCEO [facility] [id number] [facility] 2024-06-06 14:30:00 2024-06-06 15:37:00 Office Visit Karolyn Arceo [facility] 1.2.840.114 350.1.13.10 4.2.7.2.[id number] [facility] 2024-06-06 00:00:00 2024-06-06 00:00:00 Travel 1.2.840.1 31852.1.1 3.104.2.7 .3.820883 .8 1.2.840.114 350.1.13.10 4.2.7.3[id number] [facility] 2024-05-29 00:00:00 2024-05-29 10:31:05 Telephone Zehra Lockett 1.2.840.1 01054.1.1 3.104.2.7 .3.627435 .[id number] [facility] 2024-03-29 00:00:00 2024-04-02 13:22:53 Refill Shaye Wilks 1.2.840.1 62311.1.1 3.104.2.7 .3.037112 .[id number] [facility] 2024-03-22 00:00:00 2024-03-29 15:15:01 Refill Zehra Lockett 1.2.840.1 48177.1.1 3.104.2.7 .3.181343 .[id number] [facility] 2024-03-26 00:00:00 2024-03-26 13:53:48 Telephone Cecy Davis 1.2.840.1 08486.1.1 3.104.2.7 .3.124231 .[id number] [facility] 2024-03-22 13:30:00 2024-03-22 13:30:00 Outpatient R XCOHILT KESSLER RENUKA [facility] [id number] [facility] 2024-03-15 14:15:00 2024-03-15 15:44:53 Outpatient R JLUISSA ESPINOZA [facility] [id number] [facility] 2024-03-15 14:15:00 2024-03-15 15:44:53 Office Visit Julissa Espinoza 1.2.840.1 55333.1.1 3.104.2.7 .3.573997 .[id number] [facility] 2024-03-15 00:00:00 2024-03-15 00:00:00 Refill Shaye Wilks 1.2.840.1 60242.1.1 3.104.2.7 .3.229208 .[id number] [facility] 2024-03-15 00:00:00 2024-03-15 00:00:00 Travel 1.2.840.1 98060.1.1 3.104.2.7 .3.429060 .8 1.2840.114 350.1.13.10 4.2.7.3[id number] [facility] 2024-03-12 09:00:00 2024-03-12 09:00:00 Outpatient R KAROLYN ARCEO [facility] [id number] [facility] 2024-02-28 14:56:00 2024-02-28 18:27:00 Emergency EM Eliazar Marte [facility] [id number] [facility] 2024-02-28 00:00:00 2024-02-28 14:30:52 [facility]..114 350.1.13.10 4.2.7.2.[id number] [facility] 2024-02-16 14:00:00 2024-02-16 14:30:04 Outpatient R VICK BEYER CRAIG [facility] [id number] [facility] 2024-02-16 14:00:00 2024-02-16 14:30:04 Office Visit Vick Beyer [facility] 1.84.114 350.1.13.10 4.2.7.2.[id number] [facility] 2024-02-14 11:00:00 2024-02-14 11:20:14 [facility] [id number] [facility] 2024-02-14 11:00:00 2024-02-14 11:20:14 Office Visit Cathryn [facility] MED[facility] OFF[facility] BU[facility] 1.840.114 350.1.13.10 4.2.7.2.[id number] [facility] 2024-02-10 00:00:00 2024-02-10 09:20:03 Telephone [facility]ick [facility] 1.2840.114 350.1.13.10 4.2.7.2.[id number] [facility] 2024-02-07 11:00:00 2024-02-07 11:00:00 Outpatient R CATHRYN ZEHRA [facility] [id number] [facility] 2024-01-23 00:00:00 2024-01-25 10:58:18 Telephone Shaye Wilks [facility] MED[facility] OFF[facility] BUILD[facility] 1.284.114 350.1.13.10 4.2.7.2.[id number] [facility] 2024-01-19 16:00:00 2024-01-19 16:00:00 Outpatient R CINTIA VICKROBERTO PERRYBEYER [facility] [id number] [facility] 2024-01-16 00:00:00 2024-01-16 07:37:16 Telephone Vick Beyer [facility] 1.84.114 350.1.13.10 4.2.7.2.[id number] [facility] 2024-01-06 00:00:00 2024-01-09 08:36:04 Telephone Cathryn [facility] 1.84.114 350.1.13.10 4.2.7.2.[id number] [facility] 2024-01-03 00:00:00 2024-01-05 12:08:47 Telephone Cathryn [facility] 1.2.114 350.1.13.10 4.2.7.2.[id number] [facility] 2023-12-26 00:00:00 2023-12-27 13:42:52 Refill MaryZehra wetzel [facility] 1.2.840.114 350.1.13.10 4.2.7.2.[id number] [facility] 2023-12-22 00:00:00 2023-12-22 00:00:00 Telephone Vick Beyer [facility] 1.2.840.114 350.1.13.10 4.2.7.2.[id number] [facility] 2023-12-20 00:00:00 2023-12-20 00:00:00 Letter (Out) [facility] 1.2.840.114 350.1.13.10 4.2.7.2.[id number] [facility] 2023-12-19 00:00:00 2023-12-19 00:00:00 Telephone Laura Arguelles 1.2.840.114 350.1.13.10 4.2.7.2.[id number] [facility] 2023-12-16 00:00:00 2023-12-16 00:00:00 Telephone Efe [facility] 1.2.840.114 350.1.13.10 4.2.7.2.[id number] [facility] 2023-12-08 00:00:00 2023-12-08 00:00:00 Telephone Efe [facility] MED[facility] OFF[facility] BUILD[facility] 1.2.840.114 350.1.13.10 4.2.7.2.[id number] [facility] 2023-12-08 00:00:00 2023-12-08 00:00:00 Telephone Shaye Wilks [facility] 1..840.114 350.1.13.10 4.2.7.2.[id number] [facility] 2023-12-05 00:00:00 2023-12-05 00:00:00 Telephone Zehra Lockett [facility] 1.840.114 350.1.13.10 4.2.7.2.[id number] [facility] 2023-12-02 13:30:00 2023-12-02 15:47:01 Outpatient R CAT[facility] [id number] [facility] 2023-12-02 13:30:00 2023-12-02 15:47:01 Office Visit [facility] [place]?[facility] 1.840.114 350.1.13.10 4.2.7.2.[id number] [facility] 2023-12-02 00:00:00 2023-12-02 00:00:00 Telephone Vick Beyer [facility] 1..840.114 350.1.13.10 4.2.7.2.[id number] [facility] 2023-12-01 00:00:00 2023-12-01 00:00:00 Outpatient ROUSE_F [facility] [id number] Gloria [facility] 2023-12-01 00:00:00 2023-12-01 00:00:00 Refill Shaye Wilks [facility] [place]?[facility] 1.2.840.114 350.1.13.10 4.2.7.2.[id number] [facility] 2023-11-30 00:00:00 2023-11-30 00:00:00 Telephone Shaye Wilks [facility] 1.2.840.114 350.1.13.10 4.2.7.2.[id number] [facility] 2023-11-28 00:00:00 2023-11-28 00:00:00 Telephone Laura Arguelles 1.2.840.114 350.1.13.10 4.2.7.2.[id number] [facility] 2023-11-23 00:00:00 2023-11-23 00:00:00 Telephone Jaja Beyerig Live [facility] 1.2.840.114 350.1.13.10 4.2.7.2.[id number] [facility] 2023-11-22 00:00:00 2023-11-22 00:00:00 Telephone Vick Beyer [facility] 1.2.840.114 350.1.13.10 4.2.7.2.[id number] [facility] 2023-11-22 00:00:00 2023-11-22 00:00:00 MADELINE Bardales: [address], [place] [address] , Ph. [facility], MADELINE BARDALES [phone] 0402 [facility] 2023-11-17 09:45:00 2023-11-17 10:09:29 Outpatient R VICK BEYER [facility] [id number] [facility] 2023-11-17 09:45:00 2023-11-17 10:09:29 Office Visit Vick Beyer [facility] 1.2840.114 350.1.13.10 4.2.7.2.[id number] [facility] 2023-11-16 00:00:00 2023-11-16 00:00:00 Telephone Cecy Davis [place] 1.2.840.114 350.1.13.10 4.2.7.2.[id number] [facility] 2023-11-08 00:00:00 2023-11-08 00:00:00 Letter (Out) [facility] 1.2840.114 350.1.13.10 4.2.7.2.[id number] [facility] 2023-11-01 00:00:00 2023-11-01 00:00:00 Telephone Laura Arguelles [facility] [place] 1.2840.114 350.1.13.10 4.2.7.2.[id number] [facility] 2023-10-31 15:47:10 2023-10-31 23:59:00 Outpatient R VICK BEYER [facility] [id number] [facility] 2023-10-31 15:45:00 2023-10-31 23:59:00 Hospital Encounter Vick Beyer [facility] 1.20.114 350.1.13.10 4.2.7.2.[id number] [facility] 2023-10-20 00:00:00 2023-10-20 00:00:00 Telephone Vick Beyer [facility] 1.2.840.114 350.1.13.10 4.2.7.2.[id number] [facility] 2023-10-19 00:00:00 2023-10-19 00:00:00 Telephone Laura Arguelles 1.2.840.114 350.1.13.10 4.2.7.2.[id number] [facility] 2023-10-19 00:00:00 2023-10-19 00:00:00 Telephone [facility] 1.2.840.114 350.1.13.10 4.2.7.2.[id number] [facility] 2023-10-18 00:00:00 2023-10-18 00:00:00 [facility] 1.2.840.114 350.1.13.10 4.2.7.2.[id number] [facility] 2023-10-17 00:00:00 2023-10-17 00:00:00 Telephone Wilks [facility] 1.2.840.114 350.1.13.10 4.2.7.2.[id number] [facility] 2023-10-10 00:00:00 2023-10-10 00:00:00 Refill Efe [facility] 1.2.840.114 350.1.13.10 4.2.7.2.[id number] [facility] 2023-10-05 14:18:23 2023-10-05 23:59:00 Hospital Encounter Vick Beyer [facility] MEDICAL OFFICE BUILDING 1.2.840.114 350.1.13.10 4.2.7.2.[id number] [facility] 2023-10-05 13:15:00 2023-10-05 14:45:05 Outpatient R VICK BEYER [facility] [id number] [facility] 2023-10-05 13:15:00 2023-10-05 14:45:05 Office Visit Vick Beyer [facility]Y LUIS [facility] MEDICAL OFFICE BUILDING 1.2840.114 350.1.13.10 4.2.7.2.[id number] [facility] 2023-09-28 00:00:00 2023-09-28 00:00:00 Telephone Efe Prietojohn [facility] MEDICAL OFFICE BUILDING 1.840.114 350.1.13.10 4.2.7.2.[id number] [facility] 2023-09-25 14:23:00 2023-09-25 14:24:00 Emergency X [facility] ERT [id number] [facility] 2023-09-25 14:23:00 2023-09-25 14:24:00 Emergency Asa Wolfe [facility] 1.84.114 350.1.13.10 4.2.7.2.[id number] [facility] 2023-09-23 00:00:00 2023-09-23 00:00:00 Telephone Efe Shaye [facility] MEDICAL OFFICE BUILDING 1.2840.114 350.1.13.10 4.2.7.2.[id number] [facility] 2023-09-06 00:00:00 2023-09-06 00:00:00 Letter (Out) Gail Ellis [facility] 1.840.114 350.1.13.10 4.2.7.2.[id number] [facility] 2023-09-05 15:06:00 2023-09-05 23:53:00 Emergency X ELSIE BOND [facility] ERT [id number] [facility] 2023-09-05 15:06:00 2023-09-05 23:53:00 Emergency Fredrick, Jovita Dennison, Kris Donovan Bondharika S [facility] 1.840.114 350.1.13.10 4.2.7.2.[id number] [facility] 2023-08-25 14:00:23 2023-08-25 14:00:23 Outpatient SFA ELVI [id number] Ben Yang 2023-08-24 14:00:00 2023-08-24 15:04:49 Outpatient SANDY TAYLOR [facility] [id number] [facility] 2023-08-24 14:00:00 2023-08-24 15:04:49 Office Visit Pgy4 Sandy Thompson [facility] 1.840.114 350.1.13.10 4.2.7.2.[id number] [facility] 2023-08-23 00:00:00 2023-08-23 00:00:00 SULY Bardales-C: [address], [place] [address] , [address] [facility] - [facility], DR. FREEDMAN [id number] [facility] 2023-08-11 16:23:23 2023-08-11 16:23:[address] [facility] [id number] Ben Yang 2023-08-03 00:00:00 2023-08-03 00:00:00 Orders Only Doctor Unassigned, Bow [facility] 1.840.114 350.1.13.10 4.2.7.2.[id number] [facility] 2023-08-02 15:30:00 2023-08-02 16:37:25 Outpatient R EFE [facility] [id number] [facility] 2023-08-02 15:30:00 2023-08-02 16:37:25 Office Visit Efe [facility] 1.84.114 350.1.13.10 4.2.7.2.[id number] [facility] 2023-07-20 00:00:00 2023-07-20 00:00:00 Telephone Vick Beyer [facility] MEDICAL OFFICE BUILDING 1.84.114 350.1.13.10 4.2.7.2.[id number] [facility] 2023-07-13 13:00:00 2023-07-13 14:31:02 Outpatient R ROHAN CHUNG [facility] [id number] [facility] 2023-07-13 13:00:00 2023-07-13 14:31:02 Office Visit Pgy4 Rohan Chung [facility] 1..114 350.1.13.10 4.2.7.2.[id number] [facility] 2023-07-13 00:00:00 2023-07-13 00:00:00 Orders Only Doctor Unassigned, Bow [facility] 1.0.114 350.1.13.10 4.2.7.2.[id number] [facility] 2023-07-11 00:00:00 2023-07-11 00:00:00 Telephone Agudelo, [facility]?MANDY TRAN MEDICAL OFFICE BUILDING 1.2.840.114 350.1.13.10 4.2.7.2.[id number] [facility] 2023-07-05 13:00:00 2023-07-05 23:59:00 Outpatient R SELENA MAJOR [facility] [id number] [facility] 2023-07-05 13:00:00 2023-07-05 23:59:00 Hospital Encounter Selena Major [facility] 1.2.840.114 350.1.13.10 4.2.7.2.[id number] [facility] 2023-06-14 14:00:00 2023-06-14 14:58:31 Outpatient Dax AGUDELO [facility] [id number] [facility] 2023-06-14 14:00:00 2023-06-14 14:30:00 [facility] MED[facility] OFF[facility] BUILDING 1.2.840.114 350.1.13.10 4.2.7.2.[id number] [facility] 2023-06-14 00:00:00 2023-06-14 00:00:00 Telephone Laura Arguelles 1.2.840.114 350.1.13.10 4.2.7.2.[id number] [facility] 2023-06-13 00:00:00 2023-06-13 00:00:00 Telephone Laura Arguelles 1.2.840.114 350.1.13.10 4.2.7.2.[id number] [facility] 2023-06-10 14:30:00 2023-06-10 16:05:38 Out[id number] 2023-06-10 14:30:00 2023-06-10 16:05:38 Office Visit Pgy4 Selena Major [facility] 1.840.114 350.1.13.10 4.2.7.2.[id number] [facility] 2023-06-10 00:00:00 2023-06-10 00:00:00 Orders Only Doctor Unassigned, Bow [facility] 1.2.840.114 350.1.13.10 4.2.7.2.[id number] [facility] 2023-05-23 00:00:00 2023-05-23 00:00:00 Delia Sosa, [employer]AL[employer] LEAD-C: [address], [facility], [place] [address] , Ph. [phone] [place] [address], DR[address] FREEDMAN [phone] [facility] Results Test Description Test Time Test Comments Results Resul t Comments Source DME/SUPPLY JUSTIFICATION 2025-02-20 3 19:39:01 Ordered by an unspecified provider. [facility] GLUCOSE [id number] 08:29:00* Test Item Value Reference Range Interpretation Comme nts GLUCOSE BEDSIDE (test code = GLUBED) 181 MG/DL 70-110 H Performed by cer tified dandy operator at [facility] GLUCOSE [id number] 20:27:00* Test Item Value Reference Range Interpretation Comme nts GLUCOSE BEDSIDE (test code = GLUBED) 137 MG/DL 70-110 H Performed by cer tified dandy operator at [facility] GLUCOSE [id number] 17:38:00* Test Item Value Reference Range Interpretation Comme nts GLUCOSE BEDSIDE (test code = GLUBED) 154 MG/DL 70-110 H Performed by cer tified dandy operator at [facility] GLUCOSE [id number] 11:46:00* Test Item Value Reference Range Interpretation Comme nts GLUCOSE BEDSIDE (test code = GLUBED) 174 MG/DL 70-110 H Performed by cer gregory dandy operator at [facility] BASIC METABOLIC [id number] 10:16:00* Test Item Value Reference Range Interpretation Comme nts SODIUM (test code = NA) 139 mEq/L 134-147 N POTASSIUM (test code = K) 3.7 mEq/L 3.4-5.0 CHLORIDE (test code = CL) 106 mEq/L 100-108 N CARBON DIOXIDE (test code = CO2) 22 mEq/l 21-33 ANION GAP (test code = GAP) 15 0-20 N GLUCOSE (test code = GLU) 247 mg/dL 77-141 H BLOOD UREA NITROGEN (test code = BUN) 6 mg/dL 7-25 L GLOMERULAR FILTRATION RATE (test code = GFR) 106.6 95-105 H The Glomerular Filtration Rate is a calculated parameterbased on serum Creatinine, patient age and sex. GFR valuesless than 60 mL/min/1.73 square meters are indicative ofChronic Kidney Disease. Values less than 15 mL/min/1.73square meters indicate Kidney failure. The calculation forGFR is based on the CKD-EPI (2020) calculation. This formulais race indifferent and is the recommended formula for GFRby the National Kidney Foundation for Adults.The GFR will not calculate if the sex is unknown or if thepatient's age is <18 years. CREATININE (test code = CREAT) 0.7 mg/dL 0.6-1.3 N CALCIUM (test code = CA) 8.5 mg/dL 8.0-10.5 N [id number] 10:16:00* Test Item Value Reference Range Interpretation Comme nts PHOSPHOROUS (test code = PHOS) 2.4 MG/DL 2.5-4.9 L PROTHROMBIN [id number] 09:39:00* Test Item Value Reference Range Interpretation Comme nts PROTHROMBIN TIME PATIENT (test code = PTP) 9.5 SECONDS 9.3-12.9 N INTERNATIONAL NORMAL RATIO (test code = INR) 0.8 0.8-1.2 N TARGET INR BY INDICATION Indication INR1. Prophylaxis of venous thrombosis 2.0 - 3.0 (orthopedic surgery), Prophylaxis of venous thrombosis (other than high-risk surgery), Treatment of Deep Vein Thrombosis/Pulmonary Embolism, Prevention of systemic embolism - Tissue heart valves, Acute Myocardial Infarction (to prevent systemic embolism), Valvular heart disease, Atrial Fibrillation, Bileaflet mechanical valve in aortic position.2. Mechanical prosthetic valves (high risk), 2.5 - 3.5 Presence of Lupus Anticoagulant or Antiphospholipid Antibodies, Prevention of systemic embolism - Acute Myocardial Infarction (to prevent recurrent infarct). THROMBOPLASTIN TIME [id number] 09:39:00* Test Item Value Reference Range Interpretation Comme nts THROMBOPLASTIN TIME PARTIAL (test code = PTT) 30.1 Seconds 25.0-39.5 N Therapeutic Rang e: 58.8 - 96.0 Seconds Effective 06/15/2024 CBC W/AUTO [id number] 09:36:00* Test Item Value Reference Range Interpretation Comme nts WHITE BLOOD CELL (test code = WBC) 6.8 x10 3/uL 4.5-11.0 N RED BLOOD CELL (test code = RBC) 5.12 x10 6/uL 3.54-5.02 H HEMOGLOBIN (test code = HGB) 13.6 g/dL 11.0-15.0 N HEMATOCRIT (test code = HCT) 39.8 % 33.0-45.0 N MEAN CELL VOLUME (test code = MCV) 77.7 fL 81.0-99.0 L MEAN CELL HGB (test code = MCH) 26.6 pg 27.0-33.0 L MEAN CELL HGB CONCETRATION (test code = MCHC) 34.2 g/dL 33.0-37.0 N RED CELL DISTRIBUTION WIDTH CV (test code = RDW) 15.7 % 11.5-14.5 H RED CELL DISTRIBUTION WIDTH SD (test code = RDW-SD) 44.1 fL 37.0-54.0 N PLATELET COUNT (test code = PLT) 307 x10 3/uL 150-400 N MEAN PLATELET VOLUME (test c ode = MPV) 8.5 fL 7.0-9.0 N NEUTROPHIL % (test code = NT%) 50.4 % 56.0-77.0 L IMMATURE GRANULOCYTE % (test code = IG%) 0.3 % 0.0-2.0 N LYMPHOCYTE % (test code = LY%) 30.6 % 14.0-32.0 N MONOCYTE % (test code = MO%) 5.6 % 4.8-9.0 N EOSINOPHIL % (test code = EO%) 12.4 % 0.3-3.7 H BASOPHIL % (test code = BA%) 0.7 % 0.0-2.0 N NUCLEATED RBC % (test code = NRBC%) 0.0 % 0-0 N NEUTROPHIL # (test code = NT#) 3.44 x10 3/uL 2.0-7.6 N IMMATURE GRANULOCYTE # (test code = IG#) 0.02 x10 3/uL 0.00-0.03 N LYMPHOCYTE # (test code = LY#) 2.09 x10 3/uL 1.0-3.8 N MONOCYTE # (test code = MO#) 0.38 x10 3/uL 0.1-0.8 N EOSINOPHIL # (test code = EO#) 0.85 x10 3/uL 0.0-0.2 H BASOPHIL # (test code = BA#) 0.05 x10 3/uL 0.0-0.2 N NUCLEATED RBC # (test code = NRBC#) 0.00 x10 3/uL 0.0-0.1 N GLUCOSE [id number] 08:59:00* Test Item Value Reference Range Interpretation Comme nts GLUCOSE BEDSIDE (test code = GLUBED) 211 MG/DL 70-110 H Performed by cer tified dandy operator at [facility] GLUCOSE [id number] 20:41:00* Test Item Value Reference Range Interpretation Comme nts GLUCOSE BEDSIDE (test code = GLUBED) 197 MG/DL 70-110 H Performed by cer tified dandy operator at [facility] GLUCOSE [id number] 18:09:00* Test Item Value Reference Range Interpretation Comme nts GLUCOSE BEDSIDE (test code = GLUBED) 147 MG/DL 70-110 H Performed by cer tified dandy operator at [facility] GLUCOSE [id number] 13:41:00* Test Item Value Reference Range Interpretation Comme nts GLUCOSE BEDSIDE (test code = GLUBED) 189 MG/DL 70-110 H Performed by cer tified dandy operator at [facility] GLUCOSE [id number] 13:41:00* Test Item Value Reference Range Interpretation Comme nts GLUCOSE BEDSIDE (test code = GLUBED) 234 MG/DL 70-110 H Performed by cer tified dandy operator at [facility] GLUCOSE [id number] 11:18:00* Test Item Value Reference Range Interpretation Comme nts GLUCOSE BEDSIDE (test code = GLUBED) 172 MG/DL 70-110 H Performed by regulo jenkins dandy operator at [facility] RENAL FUNCTION [id number] 10:07:00* Test Item Value Reference Range Interpretation Comme nts SODIUM (test code = NA) 135 mEq/L 134-147 N POTASSIUM (test code = K) 3.0 mEq/L 3.4-5.0 L CHLORIDE (test code = CL) 109 mEq/L 100-108 H CARBON DIOXIDE (test code = CO2) 17 mEq/l 21-33 L ANION GAP (test code = GAP) 12 0-20 N GLUCOSE (test code = GLU) 194 mg/dL 77-141 H BLOOD UREA NITROGEN (test code = BUN) 7 mg/dL 7-25 N GLOMERULAR FILTRATION RATE (test code = GFR) 90.8 95-105 L The Glomerular Filtration Rate is a calculated parameterbased on serum Creatinine, patient age and sex. GFR valuesless than 60 mL/min/1.73 square meters are indicative ofChronic Kidney Disease. Values less than 15 mL/min/1.73square meters indicate Kidney failure. The calculation forGFR is based on the CKD-EPI (2020) calculation. This formulais race indifferent and is the recommended formula for GFRby the National Kidney Foundation for Adults.The GFR will not calculate if the sex is unknown or if thepatient's age is <18 years. CREATININE (test code = CREAT) 0.8 mg/dL 0.6-1.3 N ALBUMIN (test code = ALB) 3.70 g/dL 3.4-5.0 N CALCIUM (test code = CA) 8.2 mg/dL 8.0-10.5 N PHOSPHOROUS (test code = PHOS) 1.8 MG/DL 2.5-4.9 L COMMENTS: Q4 hrs While on DKA insulin dripComment: Q4 hrs While on DKA insulin [id number] 10:07:00* Test Item Value Reference Range Interpretation Comme nts MAGNESIUM (test code = MAG) 1.96 mg/dL 1.6-2.6 N COMMENTS: Q4 hrs While on DKA insulin dripComment: Q4 hrs While on DKA insulin dripCOMPREHENSIVE METABOLIC [id number] 07:19:00* Test Item Value Reference Range Interpretation Comme nts SODIUM (test code = NA) 135 mEq/L 134-147 N POTASSIUM (test code = K) 3.3 mEq/L 3.4-5.0 L CHLORIDE (test code = CL) 106 mEq/L 100-108 N CARBON DIOXIDE (test code = CO2) 17 mEq/l 21-33 L ANION GAP (test code = GAP) 15 0-20 N GLUCOSE (test code = GLU) 234 mg/dL 77-141 H BLOOD UREA NITROGEN (test code = BUN) 9 mg/dL 7-25 N GLOMERULAR FILTRATION RATE (test code = GFR) 78.9 95-105 L The Glomerular Filtration Rate is a calculated parameterbased on serum Creatinine, patient age and sex. GFR valuesless than 60 mL/min/1.73 square meters are indicative ofChronic Kidney Disease. Values less than 15 mL/min/1.73square meters indicate Kidney failure. The calculation forGFR is based on the CKD-EPI (2020) calculation. This formulais race indifferent and is the recommended formula for GFRby the National Kidney Foundation for Adults.The GFR will not calculate if the sex is unknown or if thepatient's age is <18 years. CREATININE (test code = CREAT) 0.9 mg/dL 0.6-1.3 N TOTAL PROTEIN (test code = PROT) 8.0 g/dL 5.7-8.2 N Note change in REFERENCE RANGE due to change in REAGENT. ALBUMIN (test code = ALB) 3.90 g/dL 3.4-5.0 N CALCIUM (test code = CA) 8.7 mg/dL 8.0-10.5 N BILIRUBIN TOTAL (test code = BILT) 0.50 mg/dL 0.0-1.0 N SGOT/AST (test code = AST) 19 IUnit/L 8-34 N SGPT/ALT (test code = ALT) 20 IUnit/L 10-49 N ALKALINE PHOSPHATASE TOTAL (test code = ALKP) 91 IUnit/L 20-125 N LIPID PROFILE (CORONARY RISK)2024-11-01 07:19:00* Test Item Value Reference Range Interpretation Comme nts TRIGLYCERIDES (test code = TRIG) 428 mg/dL 40-150 H CHOLESTEROL (test code = CHOL) 250 mg/dL <200 H CHOLESTEROL/HDL RATIO (test code = CHOLHDL) 7.27 RATIO 3.27-4.44 H RISK ASSOCIATED WITH CHOL/HDL RATIOS: RISK MALE FEMALE1/2 AVERAGE 3.43 3.27AVERAGE 4.97 4.442X AVERAGE 9.55 7.053X AVERAGE 23.39 11.04 NOTE THAT THE REFERENCE VALUE IS RELATEDTO RISK LEVELS RECOMMENDED BY THE NATL.HEART, LUNG, AND BLOOD INST. HDL CHOLESTEROL (test code = HDL) 34.4 MG/DL 40-60 L HDL Interpreta tion < 40.0 mg/dL Low (undesirable, high risk)> 60.0 mg/dL High (desirable, low risk) Reference interval for healthy adults was established by theNational Cholesterol Education Program (NCEP). LIPOPROTEIN LDL (test code = LDL) 162.0 mg/dL 0-100 H <100 [id number] 0-129 NEAR OPTIMAL/ABOVE [id number] HIGH>OD=117 VERY HIGH*Guidelines provided by the National Cholesterol EducationProgram Adult Treatment Panel III [id number] 07:19:00* Test Item Value Reference Range Interpretation Comme nts PHOSPHOROUS (test code = PHOS) 1.9 MG/DL 2.5-4.9 L [id number] 07:19:00* Test Item Value Reference Range Interpretation Comme nts MAGNESIUM (test code = MAG) 2.06 mg/dL 1.6-2.6 N C REACTIVE [id number] 07:13:00* Test Item Value Reference Range Interpretation Comme nts C REACTIVE PROTEIN (test code = CRP) < 5.0 MG/L <5.0 Note change in REFERENCE RANGE due to change in REAGENT. CBC W/AUTO [id number] 06:44:00* Test Item Value Reference Range Interpretation Comme nts WHITE BLOOD CELL (test code = WBC) 7.6 x10 3/uL 4.5-11.0 N RED BLOOD CELL (test code = RBC) 5.32 x10 6/uL 3.54-5.02 H HEMOGLOBIN (test code = HGB) 14.2 g/dL 11.0-15.0 N HEMATOCRIT (test code = HCT) 42.2 % 33.0-45.0 N MEAN CELL VOLUME (test code = MCV) 79.3 fL 81.0-99.0 L MEAN CELL HGB (test code = MCH) 26.7 pg 27.0-33.0 L MEAN CELL HGB CONCETRATION (test code = MCHC) 33.6 g/dL 33.0-37.0 N RED CELL DISTRIBUTION WIDTH CV (test code = RDW) 15.7 % 11.5-14.5 H RED CELL DISTRIBUTION WIDTH SD (test code = RDW-SD) 44.7 fL 37.0-54.0 N PLATELET COUNT (test code = PLT) 337 x10 3/uL 150-400 N MEAN PLATELET VOLUME (test c ode = MPV) 8.9 fL 7.0-9.0 N NEUTROPHIL % (test code = NT%) 52.5 % 56.0-77.0 L IMMATURE GRANULOCYTE % (test code = IG%) 0.3 % 0.0-2.0 N LYMPHOCYTE % (test code = LY%) 30.1 % 14.0-32.0 N MONOCYTE % (test code = MO%) 5.9 % 4.8-9.0 N EOSINOPHIL % (test code = EO%) 10.3 % 0.3-3.7 H BASOPHIL % (test code = BA%) 0.9 % 0.0-2.0 N NUCLEATED RBC % (test code = NRBC%) 0.0 % 0-0 N NEUTROPHIL # (test code = NT#) 3.98 x10 3/uL 2.0-7.6 N IMMATURE GRANULOCYTE # (test code = IG#) 0.02 x10 3/uL 0.00-0.03 N LYMPHOCYTE # (test code = LY#) 2.28 x10 3/uL 1.0-3.8 N MONOCYTE # (test code = MO#) 0.45 x10 3/uL 0.1-0.8 N EOSINOPHIL # (test code = EO#) 0.78 x10 3/uL 0.0-0.2 H BASOPHIL # (test code = BA#) 0.07 x10 3/uL 0.0-0.2 N NUCLEATED RBC # (test code = NRBC#) 0.00 x10 3/uL 0.0-0.1 N SED RATE [id number] 06:44:00* Test Item Value Reference Range Interpretation Comme nts SED RATE WESTERGREN (test co de = SEDW) 13 mm/hr 0-20 N GLUCOSE [id number] 06:01:00* Test Item Value Reference Range Interpretation Comme nts GLUCOSE BEDSIDE (test code = GLUBED) 184 MG/DL 70-110 H Performed by cer tified dandy operator at [facility] GLUCOSE [id number] 20:04:00* Test Item Value Reference Range Interpretation Comme nts GLUCOSE BEDSIDE (test code = GLUBED) 93 MG/DL 70-110 N Performed by cer tified dandy operator at [facility] GLUCOSE [id number] 13:47:00* Test Item Value Reference Range Interpretation Comme nts GLUCOSE BEDSIDE (test code = GLUBED) 172 MG/DL 70-110 H Performed by cer tified dandy operator at [facility] GLUCOSE [id number] 11:36:00* Test Item Value Reference Range Interpretation Comme nts GLUCOSE BEDSIDE (test code = GLUBED) 207 MG/DL 70-110 H Performed by cer tified dandy operator at [facility] GLUCOSE [id number] 08:41:00* Test Item Value Reference Range Interpretation Comme nts GLUCOSE BEDSIDE (test code = GLUBED) 179 MG/DL 70-110 H Performed by cer tified dandy operator at [facility] [id number] 07:37:00* Test Item Value Reference Range Interpretation Comme nts HGBA1C% (test code = HGBA1C%) 10.2 %A1C 4.8-6.0 H [id number] 06:28:00* Test Item Value Reference Range Interpretation Comme nts PHOSPHOROUS (test code = PHOS) 2.2 MG/DL 2.5-4.9 L COMMENTS: Q4 hrs While on DKA insulin dripComment: Q4 hrs While on DKA insulin [id number] 06:28:00* Test Item Value Reference Range Interpretation Comme nts MAGNESIUM (test code = MAG) 2.00 mg/dL 1.6-2.6 N COMMENTS: Q4 hrs While on DKA insulin dripComment: Q4 hrs While on DKA insulin [id number] 06:11:00* Test Item Value Reference Range Interpretation Comme nts HGBA1C% (test code = HGBA1C%) 10.2 %A1C 4.8-6.0 H GLUCOSE [id number] 05:19:00* Test Item Value Reference Range Interpretation Comme nts GLUCOSE BEDSIDE (test code = GLUBED) 156 MG/DL 70-110 H Performed by cer tified dandy operator at [facility] COMPREHENSIVE METABOLIC [id number] 03:56:00* Test Item Value Reference Range Interpretation Comme nts SODIUM (test code = NA) 138 mEq/L 134-147 N POTASSIUM (test code = K) 3.3 mEq/L 3.4-5.0 L CHLORIDE (test code = CL) 107 mEq/L 100-108 N CARBON DIOXIDE (test code = CO2) 19 mEq/l 21-33 L ANION GAP (test code = GAP) 15 0-20 N GLUCOSE (test code = GLU) 151 mg/dL 77-141 H BLOOD UREA NITROGEN (test code = BUN) 12 mg/dL 7-25 N GLOMERULAR FILTRATION RATE (test code = GFR) 62.0 95-105 L The Glomerular Filtration Rate is a calculated parameterbased on serum Creatinine, patient age and sex. GFR valuesless than 60 mL/min/1.73 square meters are indicative ofChronic Kidney Disease. Values less than 15 mL/min/1.73square meters indicate Kidney failure. The calculation forGFR is based on the CKD-EPI (202) calculation. This formulais race indifferent and is the recommended formula for GFRby the National Kidney Foundation for Adults.The GFR will not calculate if the sex is unknown or if thepatient's age is <18 years. CREATININE (test code = CREAT) 1.1 mg/dL 0.6-1.3 N TOTAL PROTEIN (test code = PROT) 7.5 g/dL 5.7-8.2 N Note change in REFERENCE RANGE due to change in REAGENT. ALBUMIN (test code = ALB) 3.70 g/dL 3.4-5.0 N CALCIUM (test code = CA) 8.6 mg/dL 8.0-10.5 N BILIRUBIN TOTAL (test code = BILT) 0.40 mg/dL 0.0-1.0 N SGOT/AST (test code = AST) 17 IUnit/L 8-34 N SGPT/ALT (test code = ALT) 19 IUnit/L 10-49 N ALKALINE PHOSPHATASE TOTAL (test code = ALKP) 71 IUnit/L 20-125 N CBC W/AUTO [id number] 03:46:00* Test Item Value Reference Range Interpretation Comme nts WHITE BLOOD CELL (test code = WBC) 10.2 x10 3/uL 4.5-11.0 N RED BLOOD CELL (test code = RBC) 5.46 x10 6/uL 3.54-5.02 H HEMOGLOBIN (test code = HGB) 14.8 g/dL 11.0-15.0 N HEMATOCRIT (test code = HCT) 43.5 % 33.0-45.0 N MEAN CELL VOLUME (test code = MCV) 79.7 fL 81.0-99.0 L MEAN CELL HGB (test code = MCH) 27.1 pg 27.0-33.0 N MEAN CELL HGB CONCETRATION (test code = MCHC) 34.0 g/dL 33.0-37.0 N RED CELL DISTRIBUTION WIDTH CV (test code = RDW) 15.4 % 11.5-14.5 H RED CELL DISTRIBUTION WIDTH SD (test code = RDW-SD) 43.6 fL 37.0-54.0 N PLATELET COUNT (test code = PLT) 339 x10 3/uL 150-400 N MEAN PLATELET VOLUME (test c ode = MPV) 8.3 fL 7.0-9.0 N NEUTROPHIL % (test code = NT%) 58.6 % 56.0-77.0 N IMMATURE GRANULOCYTE % (test code = IG%) 0.3 % 0.0-2.0 N LYMPHOCYTE % (test code = LY%) 30.2 % 14.0-32.0 N MONOCYTE % (test code = MO%) 5.3 % 4.8-9.0 N EOSINOPHIL % (test code = EO%) 5.0 % 0.3-3.7 H BASOPHIL % (test code = BA%) 0.6 % 0.0-2.0 N NUCLEATED RBC % (test code = NRBC%) 0.0 % 0-0 N NEUTROPHIL # (test code = NT#) 5.94 x10 3/uL 2.0-7.6 N IMMATURE GRANULOCYTE # (test code = IG#) 0.03 x10 3/uL 0.00-0.03 N LYMPHOCYTE # (test code = LY#) 3.07 x10 3/uL 1.0-3.8 N MONOCYTE # (test code = MO#) 0.54 x10 3/uL 0.1-0.8 N EOSINOPHIL # (test code = EO#) 0.51 x10 3/uL 0.0-0.2 H BASOPHIL # (test code = BA#) 0.06 x10 3/uL 0.0-0.2 N NUCLEATED RBC # (test code = NRBC#) 0.00 x10 3/uL 0.0-0.1 N GLUCOSE [id number] 03:29:00* Test Item Value Reference Range Interpretation Comme nts GLUCOSE BEDSIDE (test code = GLUBED) 184 MG/DL 70-110 H Performed by cer tified dandy operator at [facility] BASIC METABOLIC [id number] 03:27:00* Test Item Value Reference Range Interpretation Comme nts SODIUM (test code = NA/ABG) 140 mmol/L 134-147 N POTASSIUM (test code = K/ABG) 4.2 mmol/L 3.4-5.0 N CHLORIDE (test code = CL/ABG) 110 mmol/L 100-108 H CREATININE ABG (test code = CREAABG) 0.8 mg/dL 0.6-1.3 N POC IONIZED CALCIUM (test co de = POCCA) 1.33 MMOL/L 1.12-1.32 H POC GLUCOSE (test code = POCGLU) 163 MG/DL 70-110 H HEMOGLOBIN [id number] 03:27:00* Test Item Value Reference Range Interpretation Comme nts HEMOGLOBIN ABG (test code = HGB/ABG) 15.3 G/DL 11.0-15.0 H [id number] 03:27:00* Test Item Value Reference Range Interpretation Comme nts HEMATOCRIT (test code = HCT/ABG) 45 % 33-45 N POC LACTIC [id number] 03:27:00* Test Item Value Reference Range Interpretation Comme nts POC LACTIC ACID (test code = POCLAC) 0.9 mmol/l 0.9-1.7 N POC VENOUS BLOOD [id number] 03:27:00* Test Item Value Reference Range Interpretation Comme nts POC VENOUS BLOOD GAS PH (test code = POCPHV) 7.265 7.33-7.45 L POC VENOUS BLOOD GAS PCO2 (test code = FUFFAW8C) 42.4 mmHg 43-47 L POC VENOUS BLOOD GAS PO2 (test code = NUKTJ6Q) 15.4 mmHG 10-50 N POC TCO2 VENOUS (test code = OUBSAD8R) 20.6 22-29 L POC HCO3 VENOUS (test code = GVELVC5T) 19.3 MMOL/L 22-27 L POC BASE EXCESS VENOUS (test code = POCBEV) -7.7 MMOL/L See_Comment L [Automated messa ge] The system which generated this result transmitted reference range: 0-+/-4. The reference range was not used to interpret this result as normal/abnormal. POC O2 SATURATION VENOUS (test code = RBER5YN) 16.1 % 60-80 L VENOUS BLOOD GAS DELIVERY (test code = DELV) Room Air VENOUS BLOOD GAS TEMP (test code = TEMPV) 98.6 F VENOUS BLOOD GAS SITE (test code = SITEV) iv POCT Hemoglobin A1C [id number] 22:14:00* Test Item Value Reference Range Interpretation Comme nts POCT HBA1C (test code = 4548-4) 9.2 % 4-5.6 A Lab Interpretation (test cod e = 18644-5) [facility] 2024-06-28 17:50:41Time OutConfirmed correct patient, procedure, site, and patient consented. AnesthesiaTopical anesthesia was used. Anesthetic medications included Proparacaine 0.5%. Laser InformationThe type of laserwas argon. Color was green. The duration in seconds was 100. The spot size was 300 microns. Laser power was 320. Total spots was 836. Post-opThe patient tolerated the procedure well. There were no complications.[facility]U - Both [id number] 15:59:34Time OutConfirmed correct patient, procedure, site, and patient consented. AnesthesiaTopical anesthesia was used. Anesthetic medications included Proparacaine 0.5%. Laser InformationThe type of laserwas argon. Right EyeColor was green. The duration in seconds was 100. The spot size was 300 microns. Laser power was 320. Total spots was 1201. Left EyeColor was green. The duration in seconds was 100. The spot size was 300 microns. Laser power was 280. Total spots was 25. Post-opThe patient tolerated the procedure well. There were no complications. NotesPatient would like to return for OS PRP later. Xochilt Kessler MDUnRio Grande Regional HospitalLipid Panel (52800)(Total Cholesterol, Triglycerides, HDL) 2024-06-11 19:46:07* Test Item Value Reference Range Interpretation Comme nts CHOL (test code = 1403445903) 261 mg/dL 120-200 H HDL (test code = 2422309718) 40 mg/dL >=50 L HDLC RATIO (test code = 4809470291) 6.5 <=4.5 H TRIG (test code = 4270586570) 207 mg/dL 30-170 H LDL CHOL (test code = 66710-5) 180 mg/dL <=160 H VLDL (test code = 2184807132) 41 mg/dL 5-60 Lab Interpretation (test cod e = 22845-6) [facility]normal [facility] [id number] 20:03:00* Test Item Value Reference Range Interpretation Comme [facility] POCT HBA1C (test code = 4548-4) 9.2 % 4-6 A Lab Interpretation (test cod e = 71576-1) [facility]normal [facility]/[id number] 16:10:51 Ordered by an unspecified provider.[facility]- RE[facility]/[id number] 16:54:30Ordered by an unspecified provider.[facility] Henderson[facility]IPASE2024-07-09 16:38:00* Test Item Value Reference Range Interpretation Comme [facility] LIPASE (test code = LIP) 28 Unit/L 13-75 N TROP-I HIGH [id number] 16:38:00* Test Item Value Reference Range Interpretation Comme [facility] TROP-I HIGH SENSITIVITY (test code = TROPIHS) 2.5 ng/L 0-54 N CAUTION: Units o f the current test methodology (ng/L) differfrom the prior test methodology (ng/mL) by a factor of 1000. 99th Percentile Upper Reference Limit (URL):Females: 54 ng/LMales: 79 ng/L In order to distinguish acute elevations of high sensitivitytroponin from other clinical conditions, the FourthUniversal Definition of Myocardial Infarction stressesclinical assessment and the demonstration of a rise and/orfall in serial troponin results above the URL. Results from different methodologies should not be comparedto one another as quantitative results and URLs may varyby method. HCG [id number] 16:38:00* Test Item Value Reference Range Interpretation Comme nts HCG SERUM (test code = HCG) 0 mi-IU/ML 0-6 N BASIC METABOLIC [id number] 16:38:00* Test Item Value Reference Range Interpretation Comme nts SODIUM (test code = NA) 139 mmol/L 136-145 N POTASSIUM (test code = K) 4.2 mmol/L 3.4-5.0 N CHLORIDE (test code = CL) 101 mmol/L 98-107 N CARBON DIOXIDE (test code = CO2) 25 mmol/L 21-32 N ANION GAP (test code = GAP) 13 GAP calc 4-15 N GLUCOSE (test code = GLU) 220 MG/DL 70-110 H BLOOD UREA NITROGEN (test code = BUN) 15 MG/DL 7-18 N GLOMERULAR FILTRATION RATE (test code = GFR) >=60 max estimate estGFR >60 The Glomerular Filtration Rate is a calculated parameterbased on serum Creatinine, patient age and sex. GFR valuesless than 60 mL/min/1.73 square meters are indicative ofChronic Kidney Disease. Values less than 15 mL/min/1.73square meters indicate Kidney failure. The calculation forGFR is based on the CKD-EPI (2020) calculation. This formulais race indifferent and is the recommended formula for GFRby the National Kidney Foundation for Adults.The GFR will not calculate if the sex is unknown or if thepatient's age is <18 years. CREATININE (test code = CREAT) 1.0 MG/DL 0.6-1.0 N CALCIUM (test code = CA) 10.1 MG/DL 8.5-10.1 N HEPATIC FUNCTION [id number] 16:38:00* Test Item Value Reference Range Interpretation Comme nts TOTAL PROTEIN (test code = PROT) 9.0 G/DL 6.4-8.2 H ALBUMIN (test code = ALB) 4.2 G/DL 3.4-5.0 N BILIRUBIN TOTAL (test code = BILT) 0.6 MG/DL 0.0-1.0 N BILIRUBIN DIRECT (test code = BILD) 0.1 MG/DL 0.0-0.3 N BILIRUBIN INDIRECT (test cod e = BILIND) 0.50 MG/DL 0.2-1.2 N SGOT/AST (test code = AST) 20 Unit/L 15-37 N SGPT/ALT (test code = ALT) 25 Unit/L 30-65 L ALKALINE PHOSPHATASE TOTAL ( test code = ALKP) 72 Unit/L 50-136 N UA RFLX MICR CULT IF [id number] 16:30:00* Test Item Value Reference Range Interpretation Comme nts UA COLOR (test code = COLU) YELLOW discript YEL/STRAW UA APPEARANCE (test code = APPU) HAZY discript CLEAR A UA GLUCOSE DIPSTICK (test code = DGLUU) TRACE mg/dL NEGATIVE UA BILIRUBIN DIPSTICK (test code = BILU) 1+ mg/dL NEGATIVE A UA KETONE DIPSTICK (test code = KETU) >=160 mg/DL NEGATIVE UA SPECIFIC GRAVITY (test code = SGU) >=1.030 SG 1.000-1.030 A UA BLOOD DIPSTICK (test code = PERRY) 1+ Segundo/mcL NEGATIVE A UA PH DIPSTICK (test code = JAYJAY) 5.5 pH 5.0-7.0 UA PROTEIN DIPSTICK (test code = PROU) 2+ mg/dL NEGATIVE A UA UROBILINIOGEN DIPSTICK (test code = URO) 0.2 mg/dL 0.2-1.0 UA NITRITE DIPSTICK (test code = LEIGH) NEGATIVE SCREEN NEGATIVE UA LEUKOCYTE ESTERASE DIPSTICK (test code = LEUU) NEGATIVE Leuk/mcL NEGATIVE UA WBC (test code = WBCU) NONE SEEN #WBC/HPF 0-3 UA RBC (test code = RBCU) 5-10 #RBC/HPF 0-3 A UA BACTERIA (test code = BACU) TRACE /HPF NONE-TRACE UA SQUAMOUS CELLS (test code = SQU) TRACE /HPF NONE UA MUCUS (test code = MUCU) 1+ /LPF NONE SEEN UA CULTURE NEEDED? (test code = UACULT) NO, WBC<10 Criteria Culture CHK Indication for culture: RiskForSepsis-no oth srcSOURCE OF URINE: CLEAN CATCH PROTHROMBIN [id number] 16:16:00* Test Item Value Reference Range Interpretation Comme nts PT PATIENT (test code = PTP) 12.0 SECONDS 9.3-12.9 N INTERNATIONAL NORMAL RATIO (test code = INR) 1.09 INR Unit 0.8-1.2 N TARGET INR BY INDICATION Indication INR1. Prophylaxis of venous thrombosis 2.0 - 3.0 (orthopedic surgery), Prophylaxis of venous thrombosis (other than high-risk surgery), Treatment of Deep Vein Thrombosis/Pulmonary Embolism, Prevention of systemic embolism - Tissue heart valves, Acute Myocardial Infarction (to prevent systemic embolism), Valvular heart disease, Acute Myocardial Infarction (to prevent systemic embolism), Valvular heart disease, Atrial Fibrillation, Bileaflet mechanical valve in aortic position.2. Mechanical prosthetic valves (high risk), 2.5 - 3.5 Presence of Lupus Anticoagulant or Antiphospholipid Antibodies, Prevention of systemic embolism - Acute Myocardial Infarction (to prevent recurrent infarct). THROMBOPLASTIN TIME [id number] 16:16:00* Test Item Value Reference Range Interpretation Comme [facility] THROMBOPLASTIN TIME PARTIAL (test code = PTT) 35.9 SECONDS 26-35 H CBC W/AUTO [id number] 16:04:00* Test Item Value Reference Range Interpretation Comme nts WHITE BLOOD CELL (test code = WBC) 9.1 K/mm3 3.5-11.0 N RED BLOOD CELL (test code = RBC) 6.27 M/mm3 4.70-6.10 H HEMOGLOBIN (test code = HGB) 15.1 G/DL 10.4-14.9 H HEMATOCRIT (test code = HCT) 48.6 % 31.5-44.1 H MEAN CELL VOLUME (test code = MCV) 77.5 Fl 84.5-98.6 L MEAN CELL HGB (test code = MCH) 24.1 pg 27.0-34.2 L MEAN CELL HGB CONCETRATION (test code = MCHC) 31.1 G/DL 31.5-34.0 L RED CELL DISTRIBUTION WIDTH (test code = RDW) 16.3 SD 11.5-14.5 H PLATELET COUNT (test code = PLT) 435 K/mm3 150-450 N MEAN PLATELET VOLUME (test c ode = MPV) 8.00 fL 7.0-10.5 N NEUTROPHIL % (test code = NT%) 70.4 % 40-76 N IMMATURE GRANULOCYTE % (test code = IG%) 0.1 % 0.0-5.0 N LYMPHOCYTE % (test code = LY%) 22.8 % 20.5-51.1 N MONOCYTE % (test code = MO%) 4.8 % 1.7-9.3 N EOSINOPHIL % (test code = EO%) 1.2 % 0.0-6.0 N BASOPHIL % (test code = BA%) 0.7 % 0.0-2.0 N NUCLEATED RBC % (test code = NRBC%) 0.0 /100WBC% 0.0-1.0 N NEUTROPHIL # (test code = NT#) 6.4 K/mm3 1.8-7.6 N IMMATURE GRANULOCYTE # (test code = IG#) 0.01 x10 3/uL 0.00-0.03 N LYMPHOCYTE # (test code = LY#) 2.1 K/mm3 0.6-3.2 N MONOCYTE # (test code = MO#) 0.4 K/mm3 0.3-1.1 N EOSINOPHIL # (test code = EO#) 0.1 K/mm3 0.0-0.4 N BASOPHIL # (test code = BA#) 0.1 K/mm3 0.0-0.1 N NUCLEATED RBC # (test code = NRBC#) 0.0 K/mm3 0.0-0.1 N REFERRAL- REQUEST/[id number] 20:49:46Ordered by an unspecified provider. [facility] Hem[facility] A[facility]C [id number] 16:00:00* Test Item Value Reference Range Interpretation Comme nts POCT HBA1C (test code = 4548-4) 7.8 % 4-6 A Lab Interpretation (test cod e = 58024-0) [facility]normal [facility]/[id number] 18:00:51 Ordered by an unspecified provider.[facility]- REQUEST/[id number] 19:42:04Ordered by an unspecified provider.[facility]- REQUEST/[id number] 19:45:22Ordered by an unspecified provider.[facility]- REQUEST/[id number] 14:36:55Ordered by an unspecified provider.[facility]- REQUEST/[id number] 14:32:09Ordered by an unspecified provider.[facility]- REQUEST/[id number] 20:30:45Ordered by an unspecified provider.[facility]REF[facility]- REQUEST/[id number] 21:07:17Ordered by an unspecified provider.[facility]REF[facility]- REQUEST/[id number] 15:52:14Ordered by an unspecified provider.[facility] HendersonXR WRIST 3+ VW [id number] 22:51:35XR WRIST 3+ VW LEFT 10/05/2023 2:18 PM History: Pain Comparison: None Findings: 3 views of the left w rist are received for interpretation. There is no fracture or dislocation. Soft tissues are unremarkable. Thereare no radiopaque foreign bodies. Joint spaces are preserved.[facility] GLUCOSE (AUTOMATED) 2023-09-06 02:42:32* Test Item Value Reference Range Interpretation Comme nts POCT GLU (test code = 6159665969) 306 mg/dL 70-110 H Lab Interpretation (test cod e = 21656-8) Abnormal [facility] GLUCOSE (AUTOMATED)2023-09-06 01:06:01* Test Item Value Reference Range Interpretation Comme nts POCT GLU (test code = 4055369363) 391 mg/dL 70-110 H Lab Interpretation (test cod e = 26243-1) Abnormal [facility] GLUCOSE (AUTOMATED)2023-09-05 23:44:14* Test Item Value Reference Range Interpretation Comme nts POCT GLU (test code = 7648887099) 334 mg/dL 70-110 H Lab Interpretation (test cod e = 34335-6) Abnormal [facility] HendersonSalicylate2024-01-15 22:20:54 SALICYLATE<10mg/L09/05/2023 4:20 PM [facility]: ? Analgesic and Antipyretic Use ? 20- 100 mg/L ? ? Anti-Inflammatory Use ? 100-250 mg/L Toxic Range: ? Greater than 300 mg/LUnRio Grande Regional HospitalETHANOL2024-01-15 22:20:44ALCOHOL<10mg/dL09/05/2023 4:20 PM [facility]<10 Zfgseypi70-966 Toxic>100 Depression of OYSTER TONGER>400 Fatalities ReportedUT Health HendersonAcetaminophen2024-01-15 22:20:28* Test Item Value Reference Range Interpretation Comme nts ACETAMINOP (test code = 3133926492) 10.0-30.0 L RADHA (test code = RAHDA) Toxic: Greater chay n 200 ug/mL @ 4 hour post ingestion or greater than 50 ug/mL @ 12 hour post ingestion Lab Interpretation (test code = 98413-3) Abnormal [facility] HendersonCOM. METABOLIC PANEL (72675)2023-09-05 22:20:18* Test Item Value Reference Range Interpretation Comme nts NA (test code = 2083447666) 132 mmol/L 135-145 L K (test code = 5118656023) 4.4 mmol/L 3.5-5.0 CL (test code = 9035636344) 97 mmol/L 98-108 L CO2 TOTAL (test code = 2709452620) 23 mmol/L 23-31 AGAP (test code = 4292461570) 12 2-16 BUN (test code = 0705434051) 13 mg/dL 7-23 GLUCOSE (test code = 9684414171) 456 mg/dL 70-110 HH CREATININE (test code = 0381777570) 0.47 mg/dL 0.50-1.04 L TOTAL BILI (test code = 3443746123) 0.5 mg/dL 0.1-1.1 CALCIUM (test code = 4314845503) 9.5 mg/dL 8.6-10.6 T PROTEIN (test code = 1169482431) 8.1 g/dL 6.3-8.2 ALBUMIN (test code = 2107753296) 4.4 g/dL 3.5-5.0 ALK PHOS (test code = 2160533167) 106 U/L 34-122 ALTv (test code = 1742-6) 15 U/L 5-35 AST(SGOT) (test code = 4542208997) 17 U/L 13-40 eGFR (test code = 11656-3) 118.3 mL/min/1.73m2 CKD-EPI eGFR (2020). Assuming creatinine has been stable day-to-day for at least three months, the eGFR indicates Category G1 (>= 90 mL/min/1.73 m2) Lab Interpretation (test code = 56417-3) Abnormal [facility] HendersonCreatine [id number] 22:16:21* Test Item Value Reference Range Interpretation Comme nts CK (test code = 0756300764) 23 U/L 33-194 L Lab Interpretation (test cod e = 98854-5) [facility]normal [facility] HendersonCBC WITH [id number] 22:07:01* Test Item Value Reference Range Interpretation Comme nts WBC (test code = 6690-2) 6.33 See_Comment [Automated [employer]] The system which generated this result transmitted reference range: 4.30 - 11.10 10*3/?L. The reference range was not used to interpret this result as normal/abnormal. RBC (test code = 789-8) 5.44 See_Comment H [Automated [employer]] The system which generated this result transmitted reference range: 3.93 - 5.25 10*6/?L. The reference range was not used to interpret this result as normal/abnormal. HGB (test code = 718-7) 13.5 g/dL 11.6-15.0 HCT (test code = 4544-3) 41.7 % 35.7-45.2 MCV (test code = 787-2) 76.7 fL 80.6-95.5 L MCH (test code = 785-6) 24.8 pg 25.9-32.8 L MCHC (test code = 786-4) 32.4 g/dL 31.6-35.1 RDW-SD (test code = 90027-9) 40.2 fL 39.0-49.9 RDW-CV (test code = 788-0) 14.6 % 12.0-15.5 PLT (test code = 777-3) 386 See_Comment H [Automated messa ge] The system which generated this result transmitted reference range: 166 - 358 10*3/?L. The reference range was not used to interpret this result as normal/abnormal. MPV (test code = 44697-8) 8.9 fL 9.5-12.9 L NRBC/100 WBC (test code = 4805526432) 0.0 See_Comment [Automated [employer]] The system which generated this result transmitted reference range: 0.0 - 10.0 /100 WBCs. The reference range was not used to interpret this result as normal/abnormal. NRBC x10^3 (test code = 0844253823) See_Comment [Automated messa ge] The system which generated this result transmitted reference range: 10*3/?L. The reference range was not used to interpret this result as normal/abnormal. GRAN MAT (NEUT) % (test code = 770-8) 57.0 % IMM GRAN % (test code = 4949549423) 0.20 % LYMPH % (test code = 736-9) 31.6 % MONO % (test code = 5905-5) 5.8 % EOS % (test code = 713-8) 4.6 % BASO % (test code = 706-2) 0.8 % GRAN MAT x10^3(ANC) (test code = 8822531331) 3.61 10*3/uL 1.88-7.09 IMM GRAN x10^3 (test code = 1209158037) 0.00-0.06 LYMPH x10^3 (test code = 731-0) 2.00 10*3/uL 1.32-3.29 MONO x10^3 (test code = 742-7) 0.37 10*3/uL 0.33-0.92 EOS x10^3 (test code = 711-2) 0.29 10*3/uL 0.03-0.39 BASO x10^3 (test code = 704-7) 0.05 10*3/uL 0.01-0.07 Lab Interpretation (test code = 47726-4) Abnormal [facility] [id number] 21:17:00* Test Item Value Reference Range Interpretation Comme nts POCT PREG (test code = 1605) Negative On board controls acceptable with C Line (test code = 3574) Yes POCT PREG LOT # (test code = 3575) [id number] POCT PREG TEST DATE ( test code = 3576) 11/24/2024 Lab Interpretation (test cod e = 89474-2) Normal [facility] Hemoglobin A1C [id number] 21:30:00* Test Item Value Reference Range Interpretation Comme nts POCT HBA1C (test code = 4548-4) 12.0 % 4-6 A Lab Interpretation (test cod e = 66445-2) Abnormal [facility] Hemoglobin A1C [id number] 21:30:00* Test Item Value Reference Range Interpretation Comme nts POCT HBA1C (test code = 4548-4) 12.0 % 4-6 A Lab Interpretation (test cod e = 89984-0) Abnormal [facility] Notes Date/Time Note Provider Source 2025-05-01 12:02:11 Received PA TRAN : [id number] from [employer], placed in providers box to review. Ekta Pulliam [facility] 2025-04-30 15:55:06 Last OV note faxed Triny Levine MA [facility] 2025-04-30 09:58:13 Mary Grace Crawley is a 49 year old female Estill is calling from [facility] in ref to status of update to clinical notes for device Please call back at [phone] to discuss Thank you Sj Kenney [facility] 2025-04-25 13:26:46 Will fax back when form is received Triny Levine MA [facility] 2025-04-25 12:09:58 Debby calling from [facility] is needing some information regarding this patient, patient is requesting a new prosthetics , insurance does not cover, they are needing to know if this is medically necessary with the providers signature. Please fax over the information back to the clinic. She is going to send a fax with the clinical summary, she is wanting the clinic to sign on the yellow highlighted areas. Cell phone [phone] Fax number [phone] Debby is wanting Triny Mitchell to reach back out to her if she has any questions Thank you Nicol Bernal [facility] 2025-04-08 13:15:12 Refill has been sent to pharmacy on file. Gisselle San RN [facility] 2025-04-08 13:14:16 PA approved for dexcom sensor through 08/21/2025. Approval under media Gisselle San RN [facility] 2025-04-08 12:45:51 Images from the original note were not included. TRAN: [id number] Charity Tirado [facility] 2025-03-18 15:22:54 Sent patient a message via [employer] letting her know she would need to sign a medical records release form or contact medical records in [place]. Richelle Lee 03/18/2025 3:24 PM [facility] 2025-03-14 07:58:37 Will fax today. Richelle Barksdaleu 03/14/2025 7:58 AM [facility] 2025-03-13 12:33:11 Mary Grace Crawley Clinic Name: [facility] [id number] female / 49 year old (1975) Patient Specific Symptoms: Raquel from [facility] is calling regarding a referral that was sent to them regarding this patient, she is wanting to know if they can get the medical records stating why this patient is needing the equipment that was prescribed. Please send over a fax to [phone] Nicol Bernal [facility] 2025-03-08 11:03:39 Mary Grace Crawley is a 49 year old female has Estill with the [facility] calling in requesting last progress notes signed by doctor to be faxed to [phone] and if you need to reach her please contact her at [phone]. Thank you! EPT Harvey Mireles [facility] 2025-03-01 15:41:02 PT orders placed in provider box Barbara Guzman [facility] 2025-01-22 18:21:47 ALVIN 09/27/24 NOV 04/25/25 Pt on Omnipod Fran Casanova RN [facility] 2024-11-03 12:17:00 [facility] ([facility]) Endocrinology Progress Note REPORT#:[id number] REPORT STATUS: Signed REPORT INITIALIZATION DATE:11/03/24 TIME: 121 PATIENT: MARY GRACE CRAWLEY UNIT #: [id number] ROOM/BED: [place] [address] : [birth year] AGE: 49 SEX: F ATTEND: Claudine Davis MD ADM AUTHOR: Angie Pedroza REPT SERVICE DT/TIME: 11/03/24 1217 * ALL edits or amendments must be made on the electronic/computer document * Subjective Chief complaint: f/u DM II tolerating diet will discharge today continue pump when home Objective General VS: Last Documented: Result Date Time Pulse Ox 94 11/03 1208 B/P 108/61 11/03 1208 B/P Mean 0.0 11/03 1208 O2 Delivery Room air 11/03 1208 Temp 98.2 11/03 1208 Pulse 76 11/03 1208 Resp 14 11/03 1208 PATIENT WEIGHT: Weight (lb): Weight (oz): Weight (kg): 90.400 Dietitian nutrition assessment The data set between the solid lines has been imported from the dietitian's assessment. BMI Calculated: 27.0 Nutrition related diagnosis: Nutrition diagnosis details: Nutrition problem: Nutrition etiology: Nutrition signs and symptoms: Nutrition prescription: Dietitian name: Assessment completed: Physical Exam General appearance: alert, awake, oriented HEENT: atraumatic, clear cornea, normocephalic Neck: supple Cardiovascular: regular rate rhythm Respiratory: no distress Abdomen: soft Genitourinary: not indicated Extremities: warm Musculoskeletal: normal inspection Neuro/OYSTER TONGER: alert, oriented X 3, normal speech Skin: warm Findings/data: Laboratory Tests: 11/03 11/02 11/02 072004 165 Chemistry POC Glucose (70 - 110 MG/DL) 181 H 137 H 154 H Results: labs reviewed, vital signs reviewed Diagnosis, Assessment Plan Free Text A P: 1.DM II in DKA DKA resolved adjust Lantus adjust Humalog monitor glucose diabetic diet diabetic teaching DC Plan: Lantus and Humalog; continue with insulin pump when supplies available. 2. Discitis MRI L-spine w w/out contrast no emergent neurosurgical intervention ID and neurosurgery following at 1218 at 1104 RPT #:[id number] END OF REPORT [facility] 2024-11-03 09:00:00 [facility] ([facility]) Pain Management Progress Note REPORT#:[id number] REPORT STATUS: Signed REPORT INITIALIZATION DATE:11/03/24 TIME: 09 PATIENT: MARY GRACE CRAWLEY UNIT #: [id number] ROOM/BED: [place] [address] : [birth year] AGE: 49 SEX: F ATTEND: Claudine Davis MD ADM AUTHOR: Emeterio Garcia NP REPT SERVICE DT/TIME: 11/03/24 0900 * ALL edits or amendments must be made on the electronic/computer document * Subjective Chief complaint: Back pain Interval History 11/03/2024 Patient chart reviewed and event noted patient was seen resting in the bed, hemodianamically stable, alert and oriented Pain is manageable Mood is okay sleep okay Denies Constipation HPI: Requesting clinician: Claudine Holland Reason for consult: Acute complex pain syndrome for evaluation and management This is a 49 year old female with past medical hx of DM type II, Bipolar, Anxiety, depression presents with back pain found to have discitis as well as elevated anion gap with acidosis. Review of Systems Additional notes: Review was conducted and was negative except for what's noted in the HPI and Medical History. The following systems were reviewed: Constitutional, cardiovascular, respiratory, gastrointestinal, genitourinary, musculoskeletal, neurologic, psychiatric, endocrinological, and hematologic Objective General VS/I O: Vital Signs Date Temp Pulse Resp B/P B/P Mean Pulse Ox FiO2 11/02-11/03 97.7-98.4 80-115 12-44 105-171/56-90 0.0-122 92-100 Last Documented: Result Date Time Pulse Ox 95 11/03 0659 B/P 105/69 11/03 0659 B/P Mean 0.0 11/03 0659 O2 Delivery Room air 11/03 0659 Temp 97.7 11/03 0659 Pulse 93 11/03 0659 Resp 19 11/03 0659 24 hour I O ending at 0700: 11/03 0700 11/02 1900 Intake Total Output Total Balance Number Voids 1 PATIENT WEIGHT: Weight (lb): Weight (oz): Weight (kg): 90.400 Medications: Active Meds + DC'd Last 24 Hrs Insulin Glargine (Semglee) 10 UNIT BEDTIME SUBQ Insulin Human Lispro (Admelog) 9 UNIT AC SUBQ Mupirocin (BACTROBAN 2% 22 GM OINTMENT) 1 APPLIC BID NASAL Metoprolol Tartrate (LOPRESSOR) 25 MG Q12HR PO Insulin Glargine (Semglee) 25 UNIT DAILY SUBQ Gabapentin (NEURONTIN) 100 MG BID PO Insulin Human Lispro (Admelog) 8 UNIT AC SUBQ (DC) Methocarbamol (ROBAXIN) 500 MG Q8H PO Insulin Human Lispro (Admelog) 0 AC HS SUBQ Hydrocodone Bitart/Acetaminophen (NORCO 5/325) 1 TAB Q4H PRN PRN PO Hydrocodone Bitart/Acetaminophen (NORCO 10/325) 1 TAB Q4H PRN PRN PO Hydromorphone HCl (DILAUDID) 1 MG Q4H PRN PRN IV Acetaminophen (TYLENOL) 650 MG Q4H PRN PRN PO Albuterol/Ipratropium (DUONEB) 3 ML RTQ4H PRN PRN NEB Dextrose/Water (DEXTROSE 10% IN WATER) 125 ML ASDIR PRN IV (CKD) Dextrose/Water (DEXTROSE 10% IN WATER) 250 ML ASDIR PRN IV (CKD) Docusate Sodium (COLACE) 100 MG DAILY PRN PRN PO Glucagon (GLUCAGON) 1 MG ASDIR PRN IM Hydralazine HCl (APRESOLINE) 10 MG Q6H PRN PRN IV Ondansetron HCl (ZOFRAN) 4 MG Q4H PRN PRN IV Dietitian nutrition assessment The data set between the solid lines has been imported from the dietitian's assessment. BMI Calculated: 27.0 Nutrition related diagnosis: Nutrition diagnosis details: Nutrition problem: Nutrition etiology: Nutrition signs and symptoms: Nutrition prescription: Dietitian name: Assessment completed: Physical Exam General appearance: alert, awake, oriented, no acute distress, pleasant, conversational, mental status normal, no respiratory distress Head/eyes: atraumatic, PERRLA Neck: full range of motion Respiratory: clear to auscultation Abdomen: soft Extremities: moves all (Back pain) Neuro/OYSTER TONGER: alert Results Findings/data: Laboratory Tests: 11/03 11/02 11/02 11/02 0700 2004 1652 1121 Chemistry POC Glucose (70 - 110 MG/DL) 181 H 137 H 154 H 174 H 11/02 0915 Chemistry Sodium (134 - 147 mEq/L) 139 Potassium (3.4 - 5.0 mEq/L) 3.7 Chloride (100 - 108 mEq/L) 106 Carbon Dioxide (21 - 33 mEq/l) 22 Anion Gap (0 - 20) 15 BUN (7 - 25 mg/dL) 6 L Creatinine (0.6 - 1.3 mg/dL) 0.7 Glomerular Filtr Rate (95 - 105) 106.6 H Glucose (77 - 141 mg/dL) 247 H Calcium (8.0 - 10.5 mg/dL) 8.5 Phosphorus (2.5 - 4.9 MG/DL) 2.4 L Coagulation INR (0.8 - 1.2) 0.8 PTT (Noah) (25.0 - 39.5 Seconds) 30.1 PT Patient/Control Mix (9.3 - 12.9 SECONDS) 9.5 Hematology WBC (4.5 - 11.0 x10 3/uL) 6.8 RBC (3.54 - 5.02 x10 6/uL) 5.12 H Hgb (11.0 - 15.0 g/dL) 13.6 Hct (33.0 - 45.0 %) 39.8 MCV (81.0 - 99.0 fL) 77.7 L MCH (27.0 - 33.0 pg) 26.6 L MCHC (33.0 - 37.0 g/dL) 34.2 RDW (11.5 - 14.5 %) 15.7 H Plt Count (150 - 400 x10 3/uL) 307 MPV (7.0 - 9.0 fL) 8.5 Neut % (Auto) (56.0 - 77.0 %) 50.4 L Lymph % (Auto) (14.0 - 32.0 %) 30.6 [place] % (Auto) (4.8 - 9.0 %) 5.6 Eos % (Auto) (0.3 - 3.7 %) 12.4 H Baso % (Auto) (0.0 - 2.0 %) 0.7 Neut # (Auto) (2.0 - 7.6 x10 3/uL) 3.44 Lymph # (Auto) (1.0 - 3.8 x10 3/uL) 2.09 [place] # (Auto) (0.1 - 0.8 x10 3/uL) 0.38 Eos # (Auto) (0.0 - 0.2 x10 3/uL) 0.85 H Baso # (Auto) (0.0 - 0.2 x10 3/uL) 0.05 Abs Immat Gran (auto) (0.00 - 0.03 x10 3/uL) 0.02 Immature Gran % (0.0 - 2.0 %) 0.3 Nucleated RBC % (0 - 0 %) 0.0 Nucleated RBCs # (Man) (0.0 - 0.1 x10 3/uL) 0.00 Diagnosis, Assessment Plan Free text A P: Assessment/ Plan Patient assessed. chart reviewed. Will continue on current medical management. No side effect noted Daily Plan 11/03/2024 1. Acute complex pain syndrome 2/2 Discitis - Dilaudid 0.5mg q4hr PRN for pain 7-10 second line - [place] 10/325mg 1tab q4hr PRN for pain 7-10 first line - [place] 5/325mg 1tab q4hr PRN for pain 4-6 -Tylenol 650mg q4hr PRN for pain 1-3 2. Neuropathic pain Gabapentin 100mg PO BID 3. Muscle Spasm Robaxin 500mg 1tab PO Q8HR 4. Bowel Regimen - by Primary team -start pain regimen as above -Monitor for S/E such as AMS, Lethargy/sedation, changes in respiratory function -Continue BP parameters -APS( Acute Pain services) will continue to follow -please call pain management for any pain-related concerns or questions Goal: Daily pain control to improve function and/or quality of life ([x]) Pain control until condition naturally resolves ([x]) Inpatient pain control ([x]) Improved sleep cycle ([x]) all narcotics medications will be adjusted according to the patient's medical condition during the hospital stay Alll diagnostic images/lab and medical records during the course of this admission as well as [facility] [employer] records reviewed Risk versus benefit of opiate medications: All risk and benefit were reviewed with the patient and family members, risk not limited to respiratory depression, accidental overdose, risk of fall, altered mental status, constipation, dependency, addiction, withdrawn, sudden . Plan discussed with: The pain plan of care has been discussed with the patient and the nursing staff. Patient is in agreement with the following plan of care and wishes to proceed. Questions and concerns have been answered to the patient' s satisfaction. Patient has verbalized understanding. PDMP 10/18/2024 09/27/2024 1 Lyrica 200 Mg Capsule 60.00 30 Is Ali [id number] Wal ([id number]) 0 2.68 LMET Medicaid [place] 09/03/2024 03/16/2024 1 Pregabalin 100 Mg Capsule 60.00 30 Ke [id number] Heb ([id number]) 1 1.34 LME Comm Ins [place] 07/07/2024 03/16/2024 1 Pregabalin 100 Mg Capsule 60.00 30 Ke [id number] Heb (5115) 0 1.34 LME Comm Ins [place] 05/21/2024 03/16/2024 1 Pregabalin 100 Mg Capsule 60.00 30 Ke [id number] Wal ([id number]) 1 1.34 LMET Private Pay [place] 03/30/2024 03/16/2024 1 Pregabalin 100 Mg Capsule 60.00 30 Ke Mc [id number] Wal ([id number]) 0 1.34 LMET Comm Ins [place] 02/20/2024 10/20/2023 1 Pregabalin 100 Mg Capsule 60.00 30 We Wilks [id number] Wal ([id number]) 2 1.34 LMET Comm Ins [place] 01/12/2024 10/20/2023 1 Pregabalin 100 Mg Capsule 60.00 30 We Wilks [id number] Wal ([id number]) 1 1.34 LMET Comm Ins [place] 11/30/2023 10/20/2023 1 Pregabalin 100 Mg Capsule 60.00 30 We Wilks [id number] Wal ([id number]) 0 1.34 LMET Comm Ins [place] 10/20/2023 10/20/2023 1 Pregabalin 100 Mg Capsule 60.00 30 We Wilks [id number] Wal ([id number]) 0 1.34 LMET Comm Ins [place] at 0839 at 0939 RPT #:[id number] END OF REPORT [facility] 2024-11-03 07:19:00 [facility] ([facility]) Discharge Summary REPORT#:[id number] REPORT STATUS: Signed REPORT INITIALIZATION DATE:11/03/24 TIME: 718 PATIENT: MARY GRACE CRAWLEY UNIT #: [id number] ROOM/BED: [place] [address] : 76 AGE: 49 SEX: F ATTEND: Claudine Davis MD ADM AUTHOR: Keshawn Garcia NP REPT SERVICE DT/TIME: 11/03/24 0719 * ALL edits or amendments must be made on the electronic/computer document * PCP PCP PCP: PCP: No Primary or Family Physician Discharge to: home General Information Problem List/A P: 1. DKA (diabetic ketoacidosis) 2. Discitis 3. HYPOKALEMIA 4. HX OF DEPRESSION 5. HX OF ANXIETY 6. HX OF BIPOLAR 7. Hypomagnesemia 8. Hypophosphatemia Date of admission: Observation Start Date: Date of admission: 10/31/24 Discharge date: 11/03/24 Discharge diagnosis: SAME Above Hospital course: This is a 49 year old female with past medical hx of DM type II, Bipolar, Anxiety, depression presents to [facility] with back pain found to have discitis as well as elevated anion gap with acidosis thought to be in DKA. She was Started on insulin drip transferred here for further evaluation. She was admitted for further eval. She was seen by Endodrine for DKA. She was also seen by neurosurgery and ID for possible discitis. Her MRI L spine was negative for OM or discitis. She does not need IV ABX. SHe will go home on PO pain meds. Pt. condition on discharge: improved, stable Allergies: Allergies: No Known Allergies (Coded, 02/28/24) Med Rec Med Rec Discharge meds: Continue taking these medications: ONDANSETRON ODT (ZOFRAN ODT) 4 MG TAB.RAPDIS 4 MILLIGRAM ORAL EVERY 6 HOURS NEEDED. as needed for NAUSEA/VOMITING Qty = 15 PREGABALIN (LYRICA) 200 MG CAP 200 MILLIGRAM ORAL TWICE DAILY. CELECOXIB (CeleBREX) 200 MG CAP 200 MILLIGRAM ORAL TWICE DAILY. LURASIDONE (LATUDA) 20 MG TAB 20 MILLIGRAM ORAL DAILY. CITALOPRAM (CeleXA) 40 MG TAB 40 MILLIGRAM ORAL DAILY. traZODone (DESYREL) 100 MG TAB 100 MILLIGRAM ORAL BEDTIME. Dapagliflozin Propanediol (FARXIGA) 10 MG TAB 10 MILLIGRAM ORAL DAILY. ATORVASTATIN (LIPITOR) 20 MG TAB 20 MILLIGRAM ORAL BEDTIME. hydrOXYzine PAMOATE (VISTARIL) 100 MG CAP TWICE DAILY. Start taking the following new medications: methocarbamoL (ROBAXIN) 500 MG TAB 500 MILLIGRAM ORAL EVERY 8 HOURS. Qty = 30 No Refills METOPROLOL TARTRATE (LOPRESSOR) 25 MG TAB 25 MILLIGRAM ORAL EVERY 12 HOURS. Qty = 60 No Refills GABAPENTIN (NEURONTIN) 100 MG CAP 100 MILLIGRAM ORAL TWICE DAILY. Qty = 60 No Refills Objective VS/I O Last Documented: Result Date Time Pulse Ox 95 11/03 658 B/P 105/69 11/03 658 B/P Mean 0.0 11/03 658 O2 Delivery Room air 11/03 658 Temp 36.5 11/03 06 Pulse 93 11/03 0659 Resp 19 11/03 06 24 hour I O ending at 0700: 11/03 0700 11/02 1900 Intake Total Output Total Balance Number Voids 1 PATIENT WEIGHT: Weight (lb): Weight (oz): Weight (kg): 90.400 General appearance: alert, awake, oriented Head/Eyes: atraumatic, normocephalic, PERRLA Cardiovascular: normal capillary refill, regular rate rhythm, normal heart sounds Respiratory: clear to auscultation, no distress, no tenderness, aerating well, symmetric expansion GI: soft, non-tender Extremities: moves all, no clubbing, no cyanosis Neuro/OYSTER TONGER: alert, oriented X 3 Results Findings/Data: Laboratory Tests: 11/02 1652 1121 0915 Chemistry Sodium (134 - 147 mEq/L) 139 Potassium (3.4 - 5.0 mEq/L) 3.7 Chloride (100 - 108 mEq/L) 106 Carbon Dioxide (21 - 33 mEq/l) 22 Anion Gap (0 - 20) 15 BUN (7 - 25 mg/dL) 6 L Creatinine (0.6 - 1.3 mg/dL) 0.7 Glomerular Filtr Rate (95 - 105) 106.6 H Glucose (77 - 141 mg/dL) 247 H POC Glucose (70 - 110 MG/DL) 137 H 154 H 174 H Calcium (8.0 - 10.5 mg/dL) 8.5 Phosphorus (2.5 - 4.9 MG/DL) 2.4 L Coagulation INR (0.8 - 1.2) 0.8 PTT (Marion) (25.0 - 39.5 Seconds) 30.1 PT Patient/Control Mix (9.3 - 12.9 SECONDS) 9.5 Hematology WBC (4.5 - 11.0 x10 3/uL) 6.8 RBC (3.54 - 5.02 x10 6/uL) 5.12 H Hgb (11.0 - 15.0 g/dL) 13.6 Hct (33.0 - 45.0 %) 39.8 MCV (81.0 - 99.0 fL) 77.7 L MCH (27.0 - 33.0 pg) 26.6 L MCHC (33.0 - 37.0 g/dL) 34.2 RDW (11.5 - 14.5 %) 15.7 H Plt Count (150 - 400 x10 3/uL) 307 MPV (7.0 - 9.0 fL) 8.5 Neut % (Auto) (56.0 - 77.0 %) 50.4 L Lymph % (Auto) (14.0 - 32.0 %) 30.6 [place] % (Auto) (4.8 - 9.0 %) 5.6 Eos % (Auto) (0.3 - 3.7 %) 12.4 H Baso % (Auto) (0.0 - 2.0 %) 0.7 Neut # (Auto) (2.0 - 7.6 x10 3/uL) 3.44 Lymph # (Auto) (1.0 - 3.8 x10 3/uL) 2.09 [place] # (Auto) (0.1 - 0.8 x10 3/uL) 0.38 Eos # (Auto) (0.0 - 0.2 x10 3/uL) 0.85 H Baso # (Auto) (0.0 - 0.2 x10 3/uL) 0.05 Abs Immat Gran (auto) (0.00 - 0.03 x10 3/uL) 0.02 Immature Gran % (0.0 - 2.0 %) 0.3 Nucleated RBC % (0 - 0 %) 0.0 Nucleated RBCs # (Man) (0.0 - 0.1 x10 3/uL) 0.00 11/02 0846 Chemistry POC Glucose (70 - 110 MG/DL) 211 H Discharge Instructions PCP )( Discharge to: Home/Self Care Discharge Instructions Additional Discharge Routines: PCP Follow-Up, Director Of Cardiac Cath Lab Follow-Up )( Diet: Regular )( Activity: Resume Normal Activity Follow-up Appointments PCP follow up: PCP: No Primary or Family Physician PCP follow up timeframe: In 2-3 weeks Consulting provider 1: Provider 1: Armen Prado MD Specialty: Neurological Surgery Consult follow up timeframe: In 2-3 weeks at 0722 at 0732 RPT #:[id number] END OF REPORT [facility] 2024-11-02 14:57:00 [facility] Progress Note REPORT#:[id number] REPORT STATUS: Signed REPORT INITIALIZATION DATE:11/02/24 TIME: 1456 PATIENT: MARY GRACE CRAWLEY UNIT #: [id number] ROOM/BED: [place] [address] : 76 AGE: 49 SEX: F ATTEND: Claudine Davis MD ADM AUTHOR: Bairon Riley NP REPT SERVICE DT/TIME: 11/02/241456 * ALL edits or amendments must be made on the electronic/computer document * Subjective Chief complaint: F/U ? Diskitis/OM HPI: Pt is a 49yo female with PMH of DM2, Peripheral neuopathy, Bipolar who presented to the er at [place] secondary to acute osnet pain that starrted the day she presented to the er that progressively, denies associated symptoms of fever, chills, BLE weakness or numbness, no bowel or bladder incontinence. She was transferred to [facility] for neurosurgery eval after imaging showed concerning for vertebral diskitis/OM. ID was consulted to assist with abx and POC Patient reports: Yes: bowel movement, feeling better. No: complaints, abdominal pain, back pain (improved), burning with urination, cough, diarrhea, fever, headache, nausea, pain, pain controlled, shortness of breath, vomiting, wheezing. Nursing reports: No: complaints. Review of Systems Free Text ROS Notes Free Text ROS Notes: 10 systems reviewed and otherwise negative except as mentioned Objective General VS/I O: Vital Signs Date Temp Pulse Resp B/P B/P Mean Pulse Ox FiO2 11/01-11/02 97.7-98.2 90-115 12-20 121-171/64-90 0.0-122 95-100 Last Documented: Result Date Time Pulse Ox 95 11/02 1231 B/P 121/68 11/02 1231 B/P Mean 88 11/02 1231 Pulse 91 11/02 1231 Resp 18 11/02 1231 O2 Delivery Room air 11/02 0719 Temp 98.2 11/02 0719 Vital Signs: Date Time Temp Pulse Resp B/P B/P Pulse O2 O2 Flow FiO2 Mean Ox Delivery Rate 11/02 1231 91 18 121/68 88 95 11/02 1112 90 19 130/67 91 99 11/02 1012 115 171/90 122 98 11/02 0858 105 12 161/80 112 99 11/02 0719 98.2 111 14 163/81 0.0 99 Room air 11/02 0717 111 15 163/81 112 100 11/02 0418 105 15 128/64 0.0 95 Room air 11/02 0012 110 17 137/73 0.0 99 Room air 11/02 0008 111 18 137/73 99 99 11/01 1936 115 15 153/74 0.0 99 Nasal cannula 11/01 1715 97.7 110 20 155/78 0.0 100 Room air 24 hour I O ending at 0700: 11/02 0700 11/01 1900 Intake Total 200 Output Total Balance 200 Intake, Oral 200 PATIENT WEIGHT: Weight (lb): Weight (oz): Weight (kg): 90.400 Physical Exam General appearance: alert, awake Wound/incision: Location: LEFT AKA (old) Multiple scratches to RLE Head/Eyes: atraumatic ENT: moist mucosal membranes Neck: full range of motion Cardiovascular: normal heart sounds Respiratory: clear to auscultation, aerating well, no distress Abdomen: non-tender, soft Neuro/OYSTER TONGER: alert, oriented X 3, normal speech Skin: no rash Results Findings/Data: Laboratory Tests 11/02/24 0915: [Embedded Image Not Available] 11/01/24 0910: [Embedded Image Not Available] 11/01/24 0504: [Embedded Image Not Available] Current Medications Sig/Drake Start time Last Medication Dose Route Stop Time Status Admin Insulin Glargine 10 UNIT BEDTIME 11/02 2100 AC SUBQ 01/31 2059 Insulin Human Lispro 9 UNIT AC 11/02 1630 AC SUBQ 01/31 1629 Mupirocin 1 APPLIC BID 11/02 1030 AC 11/02 NASAL 11/06 2101 1014 Metoprolol Tartrate 25 MG Q12HR 11/02 0945 AC 11/02 PO 01/31 0944 1014 Potassium Phosphate 15 MM ONCE ONE 11/01 1200 DC 11/01 Sodium Chloride 250 ML IV 11/01 1459 1230 Insulin Glargine 25 UNIT DAILY 11/01 1115 AC 11/02 SUBQ 01/30 1103 0857 Gabapentin 100 MG BID 10/31 2100 AC 11/02 PO 01/29 205 0815 Insulin Human Lispro 8 UNIT AC 10/31 1300 DC 11/02 SUBQ 01/29 1259 1232 Methocarbamol 500 MG Q8H 10/31 1200 AC 11/02 PO 01/29 1159 1231 Insulin Human Lispro 0 AC HS 10/31 1130 AC 11/02 SUBQ 01/29 1129 1231 Hydrocodone Bitart/ 1 TAB Q4H PRN PRN 10/31 1115 AC Acetaminophen PO 11/05 1114 Hydrocodone Bitart/ 1 TAB Q4H PRN PRN 10/31 1115 AC 11/02 Acetaminophen PO 11/05 1114 0007 Hydromorphone HCl 1 MG Q4H PRN PRN 10/31 1115 AC 11/02 IV 11/05 1114 0815 Acetaminophen 650 MG Q4H PRN PRN 10/31 1045 AC PO 01/29 1044 Albuterol/Ipratropium 3 ML RTQ4H PRN PRN 10/31 1045 AC NEB 01/29 1044 Dextrose/Water 125 ML ASDIR PRN 10/31 1045 CKD IV 01/29 1044 Dextrose/Water 250 ML ASDIR PRN 10/31 1045 CKD IV 01/29 1044 Docusate Sodium 100 MG DAILY PRN PRN 10/31 1045 AC 11/01 PO 01/29 1044 0830 Glucagon 1 MG ASDIR PRN 10/31 1045 AC IM 01/29 1044 Hydralazine HCl 10 MG Q6H PRN PRN 10/31 1045 AC 11/01 IV 01/29 1044 1030 Ondansetron HCl 4 MG Q4H PRN PRN 10/31 1045 AC 10/31 IV 01/29 1044 1639 Results: labs reviewed, vital signs reviewed, vital signs stable, current med profile rev'd Diagnosis, Assessment Plan Free Text A P: A: No vertebral diskitis/OM --MRI r/o diskitis/OM DM2 Bipolar Left BKA P: DC planning w/o abx from ID standpoint Pt seen and examined with Dr Ji MDM was done entirely by Dr Ji at 1459 at 0818 RPT #:[id number] END OF REPORT [facility] 2024-11-02 13:40:00 [facility] Progress Note REPORT#:[id number] REPORT STATUS: Signed REPORT INITIALIZATION DATE:11/02/24 TIME: 1340 PATIENT: MARY GRACE CRAWLEY UNIT #: [id number] ROOM/BED: [place] [address] : 76 AGE: 49 SEX: F ATTEND: Claudine Davis MD ADM AUTHOR: Ovidio AndersonP REPT SERVICE DT/TIME: 11/02/24 1242 * ALL edits or amendments must be made on the electronic/computer document * Subjective Chief complaint: f/u DM II tolerating diet Objective General VS: Last Documented: Result Date Time Pulse Ox 95 11/02 1231 B/P 121/68 11/02 1231 B/P Mean 88 11/02 1231 Pulse 91 11/02 1231 Resp 18 11/02 1231 O2 Delivery Room air 11/02 718 Temp 98.2 11/02 07 PATIENT WEIGHT: Weight (lb): Weight (oz): Weight (kg): 90.400 Medications: Active Meds + DC'd Last 24 Hrs Insulin Glargine (Semglee) 10 UNIT BEDTIME SUBQ Insulin Human Lispro (Admelog) 9 UNIT AC SUBQ (UNV) Mupirocin (BACTROBAN 2% 22 GM OINTMENT) 1 APPLIC BID NASAL Metoprolol Tartrate (LOPRESSOR) 25 MG Q12HR PO Gadoterate Meglumine (DOTAREM) 19 ML .STK-MED ONE IV (DC) Potassium Phosphate (POTASSIUM PHOSPHATE) 15 MM ONCE ONE IV (DC) Sodium Chloride (SODIUM CHLORIDE 0.9%) 250 ML Potassium Chloride (POTASSIUM CHLORIDE 20MEQ TAB.ER) 20 MEQ Q2H PO (DC) Insulin Glargine (Semglee) 25 UNIT DAILY SUBQ Gabapentin (NEURONTIN) 100 MG BID PO Insulin Human Lispro (Admelog) 8 UNIT AC SUBQ (DCr) Methocarbamol (ROBAXIN) 500 MG Q8H PO Insulin Human Lispro (Admelog) 0 AC HS SUBQ Hydrocodone Bitart/Acetaminophen (NORCO 5/325) 1 TAB Q4H PRN PRN PO Hydrocodone Bitart/Acetaminophen (NORCO 10/325) 1 TAB Q4H PRN PRN PO Hydromorphone HCl (DILAUDID) 1 MG Q4H PRN PRN IV Acetaminophen (TYLENOL) 650 MG Q4H PRN PRN PO Albuterol/Ipratropium (DUONEB) 3 ML RTQ4H PRN PRN NEB Dextrose/Water (DEXTROSE 10% IN WATER) 125 ML ASDIR PRN IV (CKD) Dextrose/Water (DEXTROSE 10% IN WATER) 250 ML ASDIR PRN IV (CKD) Docusate Sodium (COLACE) 100 MG DAILY PRN PRN PO Glucagon (GLUCAGON) 1 MG ASDIR PRN IM Hydralazine HCl (APRESOLINE) 10 MG Q6H PRN PRN IV Ondansetron HCl (ZOFRAN) 4 MG Q4H PRN PRN IV Dietitian nutrition assessment The data set between the solid lines has been imported from the dietitian's assessment. BMI Calculated: 27.0 Nutrition related diagnosis: Nutrition diagnosis details: Nutrition problem: Nutrition etiology: Nutrition signs and symptoms: Nutrition prescription: Dietitian name: Assessment completed: Physical Exam General appearance: alert, awake, oriented HEENT: normocephalic Neck: supple Cardiovascular: regular rate rhythm Respiratory: no distress Abdomen: soft Genitourinary: not indicated Extremities: warm Musculoskeletal: normal inspection Neuro/OYSTER TONGER: alert, oriented X 3, normal speech Skin: warm Findings/data: Laboratory Tests: 11/02 11/02 11/02 11/01 11/01 1121 0915 0846 2026 1715 Chemistry Sodium (134 - 147 mEq/L) 139 Potassium (3.4 - 5.0 mEq/L) 3.7 Chloride (100 - 108 mEq/L) 106 Carbon Dioxide (21 - 33 mEq/l) 22 Anion Gap (0 - 20) 15 BUN (7 - 25 mg/dL) 6 L Creatinine (0.6 - 1.3 mg/dL) 0.7 Glomerular Filtr Rate (95 - 105) 106.6 H Glucose (77 - 141 mg/dL) 247 H POC Glucose (70 - 110 MG/DL) 174 H 211 H 197 H 147 H Calcium (8.0 - 10.5 mg/dL) 8.5 Phosphorus (2.5 - 4.9 MG/DL) 2.4 L Coagulation INR (0.8 - 1.2) 0.8 PTT (Noah) (25.0 - 39.5 Seconds) 30.1 PT Patient/Control Mix (9.3 - 12.9 9.5 SECONDS) Hematology WBC (4.5 - 11.0 x10 3/uL) 6.8 RBC (3.54 - 5.02 x10 6/uL) 5.12 H Hgb (11.0 - 15.0 g/dL) 13.6 Hct (33.0 - 45.0 %) 39.8 MCV (81.0 - 99.0 fL) 77.7 L MCH (27.0 - 33.0 pg) 26.6 L MCHC (33.0 - 37.0 g/dL) 34.2 RDW (11.5 - 14.5 %) 15.7 H Plt Count (150 - 400 x10 3/uL) 307 MPV (7.0 - 9.0 fL) 8.5 Neut % (Auto) (56.0 - 77.0 %) 50.4 L Lymph % (Auto) (14.0 - 32.0 %) 30.6 [place] % (Auto) (4.8 - 9.0 %) 5.6 Eos % (Auto) (0.3 - 3.7 %) 12.4 H Baso % (Auto) (0.0 - 2.0 %) 0.7 Neut # (Auto) (2.0 - 7.6 x10 3/uL) 3.44 Lymph # (Auto) (1.0 - 3.8 x10 3/uL) 2.09 [place] # (Auto) (0.1 - 0.8 x10 3/uL) 0.38 Eos # (Auto) (0.0 - 0.2 x10 3/uL) 0.85 H Baso # (Auto) (0.0 - 0.2 x10 3/uL) 0.05 Abs Immat Gran (auto) (0.00 - 0.03 0.02 x10 3/uL) Immature Gran % (0.0 - 2.0 %) 0.3 Nucleated RBC % (0 - 0 %) 0.0 Nucleated RBCs # (Man) (0.0 - 0.1 0.00 x10 3/uL) Recent Impressions: MAGNETIC RESONANCE IMAGING - MRI L-SPINE W WO CON 11/01 8588 Report Impression - Status: SIGNED Entered: 11/01/2024 7816 IMPRESSION: 1. No evidence of discitis or osteomyelitis within the lumbar spine. 2. Mild multilevel lumbar spondylosis, without canal stenosis. This includes a disc protrusion at L4-5, as above. 3. Mild foraminal narrowing at a few levels, as above. 4. Borderline low-lying conus. No filum lipoma identified. Impression By: [email or web address] - Mike Figueroa M.D. Laboratory Tests: 11/02 11/02 11/02 11/01 11/01 1121 0915 0846 5373 8111 Chemistry Sodium (134 - 147 mEq/L) 139 Potassium (3.4 - 5.0 mEq/L) 3.7 Chloride (100 - 108 mEq/L) 106 Carbon Dioxide (21 - 33 mEq/l) 22 Anion Gap (0 - 20) 15 BUN (7 - 25 mg/dL) 6 L Creatinine (0.6 - 1.3 mg/dL) 0.7 Glomerular Filtr Rate (95 - 105) 106.6 H Glucose (77 - 141 mg/dL) 247 H POC Glucose (70 - 110 MG/DL) 174 H 211 H 197 H 147 H Calcium (8.0 - 10.5 mg/dL) 8.5 Phosphorus (2.5 - 4.9 MG/DL) 2.4 L Coagulation INR (0.8 - 1.2) 0.8 PTT (Noah) (25.0 - 39.5 Seconds) 30.1 PT Patient/Control Mix (9.3 - 12.9 9.5 SECONDS) Hematology WBC (4.5 - 11.0 x10 3/uL) 6.8 RBC (3.54 - 5.02 x10 6/uL) 5.12 H Hgb (11.0 - 15.0 g/dL) 13.6 Hct (33.0 - 45.0 %) 39.8 MCV (81.0 - 99.0 fL) 77.7 L MCH (27.0 - 33.0 pg) 26.6 L MCHC (33.0 - 37.0 g/dL) 34.2 RDW (11.5 - 14.5 %) 15.7 H Plt Count (150 - 400 x10 3/uL) 307 MPV (7.0 - 9.0 fL) 8.5 Neut % (Auto) (56.0 - 77.0 %) 50.4 L Lymph % (Auto) (14.0 - 32.0 %) 30.6 [place] % (Auto) (4.8 - 9.0 %) 5.6 Eos % (Auto) (0.3 - 3.7 %) 12.4 H Baso % (Auto) (0.0 - 2.0 %) 0.7 Neut # (Auto) (2.0 - 7.6 x10 3/uL) 3.44 Lymph # (Auto) (1.0 - 3.8 x10 3/uL) 2.09 [place] # (Auto) (0.1 - 0.8 x10 3/uL) 0.38 Eos # (Auto) (0.0 - 0.2 x10 3/uL) 0.85 H Baso # (Auto) (0.0 - 0.2 x10 3/uL) 0.05 Abs Immat Gran (auto) (0.00 - 0.03 0.02 x10 3/uL) Immature Gran % (0.0 - 2.0 %) 0.3 Nucleated RBC % (0 - 0 %) 0.0 Nucleated RBCs # (Man) (0.0 - 0.1 0.00 x10 3/uL) Recent Impressions: [facility] - MRI L-SPINE W WO CON 11/01 1418 Report Impression - Status: SIGNED Entered: 11/01/2024 1542 IMPRESSION: 1. No evidence of discitis or osteomyelitis within the lumbar spine. 2. Mild multilevel lumbar spondylosis, without canal stenosis. This includes a disc protrusion at L4-5, as above. 3. Mild foraminal narrowing at a few levels, as above. 4. Borderline low-lying conus. No filum lipoma identified. Impression By: [email or web address] - Mike Figueroa M.D. Diagnosis, Assessment Plan Free Text A P: 1.DM II in DKA DKA resolved adjust Lantus adjust Humalog monitor glucose diabetic diet diabetic teaching DC Plan: Lantus and Humalog; continue with insulin pump when supplies available. 2. Discitis MRI L-spine w w/out contrast no emergent neurosurgical intervention ID and neurosurgery following at 1400 at 1104 RPT #:[id number] END OF REPORT [facility] 2024-11-02 11:01:00 [facility] ([facility]) Pain Management Progress Note REPORT#:[id number] REPORT STATUS: Signed REPORT INITIALIZATION DATE:11/02/24 TIME: 1101 PATIENT: MARY GRACE CRAWLEY UNIT #: [id number] ROOM/BED: [place] [id number] : 77 AGE: 49 SEX: F ATTEND: Claudine Davis MD ADM AUTHOR: Emeterio Garcia NP REPT SERVICE DT/TIME: 11/02/24 1101 * ALL edits or amendments must be made on the electronic/computer document * Subjective Chief complaint: Back pain Interval History 11/02/2024 Patient chart reviewed and event noted patient was seen resting in the bed, hemodianamically stable, alert and oriented Pain is manageable Mood is okay sleep okay Denies Constipation HPI: Requesting clinician: Claudine Holland Reason for consult: Acute complex pain syndrome for evaluation and management This is a 49 year old female with past medical hx of DM type II, Bipolar, Anxiety, depression presents with back pain found to have discitis as well as elevated anion gap with acidosis. Review of Systems Additional notes: Review was conducted and was negative except for what's noted in the HPI and Medical History. The following systems were reviewed: Constitutional, cardiovascular, respiratory, gastrointestinal, genitourinary, musculoskeletal, neurologic, psychiatric, endocrinological, and hematologic Objective General VS/I O: Vital Signs Date Temp Pulse Resp B/P B/P Mean Pulse Ox FiO2 11/01-11/02 97.7-98.2 105-115 12-20 127-163/64-81 0.0-112 93-100 Last Documented: Result Date Time Pulse Ox 99 11/02 0858 B/P 161/80 11/02 0858 B/P Mean 112 11/02 0858 Pulse 105 11/02 0858 Resp 12 11/02 0858 O2 Delivery Room air 11/02 0719 Temp 98.2 11/02 0719 24 hour I O ending at 0700: 11/02 0700 11/01 1900 Intake Total 200 Output Total Balance 200 Intake, Oral 200 PATIENT WEIGHT: Weight (lb): Weight (oz): Weight (kg): 90.400 Medications: Active Meds + DC'd Last 24 Hrs Mupirocin (BACTROBAN 2% 22 GM OINTMENT) 1 APPLIC BID NASAL Metoprolol Tartrate (LOPRESSOR) 25 MG Q12HR PO Gadoterate Meglumine (DOTAREM) 19 ML .STK-MED ONE IV (DC) Potassium Phosphate (POTASSIUM PHOSPHATE) 15 MM ONCE ONE IV (DC) Sodium Chloride (SODIUM CHLORIDE 0.9%) 250 ML Potassium Chloride (POTASSIUM CHLORIDE 20MEQ TAB.ER) 20 MEQ Q2H PO (DC) Insulin Glargine (Semglee) 25 UNIT DAILY SUBQ (DC) Insulin Glargine (Semglee) 25 UNIT DAILY SUBQ Gabapentin (NEURONTIN) 100 MG BID PO Insulin Human Lispro (Admelog) 8 UNIT AC SUBQ Methocarbamol (ROBAXIN) 500 MG Q8H PO Insulin Human Lispro (Admelog) 0 AC HS SUBQ Hydrocodone Bitart/Acetaminophen (NORCO 5/325) 1 TAB Q4H PRN PRN PO Hydrocodone Bitart/Acetaminophen (NORCO 10/325) 1 TAB Q4H PRN PRN PO Hydromorphone HCl (DILAUDID) 1 MG Q4H PRN PRN IV Acetaminophen (TYLENOL) 650 MG Q4H PRN PRN PO Albuterol/Ipratropium (DUONEB) 3 ML RTQ4H PRN PRN NEB Dextrose/Water (DEXTROSE 10% IN WATER) 125 ML ASDIR PRN IV (CKD) Dextrose/Water (DEXTROSE 10% IN WATER) 250 ML ASDIR PRN IV (CKD) Docusate Sodium (COLACE) 100 MG DAILY PRN PRN PO Glucagon (GLUCAGON) 1 MG ASDIR PRN IM Hydralazine HCl (APRESOLINE) 10 MG Q6H PRN PRN IV Ondansetron HCl (ZOFRAN) 4 MG Q4H PRN PRN IV Dextrose/Water (Dextrose 10% 1,000 mL) 1,000 ML ASDIR IV (DC) Insulin Human Regular (MYXREDLIN 100 UNITS/NS 100ML) 100 ML ASDIR IV (DC ) Magnesium Sulfate (MAGNESIUM SULFATE 2GM/SWFI 50ML) 50 ML ASDIR PRN IV ( DC) Magnesium Sulfate (MAGNESIUM SULFATE 4GM/SWFI 100ML) 100 ML ASDIR PRN IV (DC) Potassium Chloride (POTASSIUM CHLORIDE 20MEQ TAB.ER) 20 MEQ ASDIR PRN PO (DC) Potassium Chloride (K-MOSES 20 MEQ PACKET) 20 MEQ ASDIR PRN FEED-TUBE (DC) Potassium Chloride (KCL 10MEQ/SWFI 50ML) 50 ML ASDIR PRN IV (DC) Potassium Phosphate (POTASSIUM PHOSPHATE) 15 MM ASDIR PRN IV (DC) Sodium Chloride (SODIUM CHLORIDE 0.9%) 250 ML Dietitian nutrition assessment The data set between the solid lines has been imported from the dietitian's assessment. BMI Calculated: 27.0 Nutrition related diagnosis: Nutrition diagnosis details: Nutrition problem: Nutrition etiology: Nutrition signs and symptoms: Nutrition prescription: Dietitian name: Assessment completed: Physical Exam General appearance: alert, awake, oriented, no acute distress, pleasant, conversational, mental status normal, no respiratory distress Head/eyes: atraumatic, PERRLA Neck: full range of motion Respiratory: clear to auscultation Abdomen: soft Extremities: moves all (Back pain) Neuro/OYSTER TONGER: alert Results Findings/data: Laboratory Tests: 11/02 11/02 11/01 11/01 11/01 0915 0846 2026 1715 1229 Chemistry Sodium (134 - 147 mEq/L) 139 Potassium (3.4 - 5.0 mEq/L) 3.7 Chloride (100 - 108 mEq/L) 106 Carbon Dioxide (21 - 33 mEq/l) 22 Anion Gap (0 - 20) 15 BUN (7 - 25 mg/dL) 6 L Creatinine (0.6 - 1.3 mg/dL) 0.7 Glomerular Filtr Rate (95 - 105) 106.6 H Glucose (77 - 141 mg/dL) 247 H POC Glucose (70 - 110 MG/DL) 211 H 197 H 147 H 189 H Calcium (8.0 - 10.5 mg/dL) 8.5 Phosphorus (2.5 - 4.9 MG/DL) 2.4 L Coagulation INR (0.8 - 1.2) 0.8 PTT ([place]) (25.0 - 39.5 Seconds) 30.1 PT Patient/Control Mix (9.3 - 12.9 9.5 SECONDS) Hematology WBC (4.5 - 11.0 x10 3/uL) 6.8 RBC (3.54 - 5.02 x10 6/uL) 5.12 H Hgb (11.0 - 15.0 g/dL) 13.6 Hct (33.0 - 45.0 %) 39.8 MCV (81.0 - 99.0 fL) 77.7 L MCH (27.0 - 33.0 pg) 26.6 L MCHC (33.0 - 37.0 g/dL) 34.2 RDW (11.5 - 14.5 %) 15.7 H Plt Count (150 - 400 x10 3/uL) 307 MPV (7.0 - 9.0 fL) 8.5 Neut % (Auto) (56.0 - 77.0 %) 50.4 L Lymph % (Auto) (14.0 - 32.0 %) 30.6 [place] % (Auto) (4.8 - 9.0 %) 5.6 Eos % (Auto) (0.3 - 3.7 %) 12.4 H Baso % (Auto) (0.0 - 2.0 %) 0.7 Neut # (Auto) (2.0 - 7.6 x10 3/uL) 3.44 Lymph # (Auto) (1.0 - 3.8 x10 3/uL) 2.09 [place] # (Auto) (0.1 - 0.8 x10 3/uL) 0.38 Eos # (Auto) (0.0 - 0.2 x10 3/uL) 0.85 H Baso # (Auto) (0.0 - 0.2 x10 3/uL) 0.05 Abs Immat Gran (auto) (0.00 - 0.03 0.02 x10 3/uL) Immature Gran % (0.0 - 2.0 %) 0.3 Nucleated RBC % (0 - 0 %) 0.0 Nucleated RBCs # (Man) (0.0 - 0.1 0.00 x10 3/uL) 11/01 1107 Chemistry POC Glucose (70 - 110 MG/DL) 172 H Recent Impressions: [facility]NET[facility] IMAGING - MRI L-SPINE W WO CON 11/01 1418 Report Impression - Status: SIGNED Entered: 11/01/2024 8038 IMPRESSION: 1. No evidence of discitis or osteomyelitis within the lumbar spine. 2. Mild multilevel lumbar spondylosis, without canal stenosis. This includes a disc protrusion at L4-5, as above. 3. Mild foraminal narrowing at a few levels, as above. 4. Borderline low-lying conus. No filum lipoma identified. Impression By: [email or web address] - Mike Figueroa M.D. Diagnosis, Assessment Plan Free text A P: Assessment/ Plan Patient assessed. chart reviewed. Will continue on current medical management. No side effect noted Daily Plan 11/02/2024 1. Acute complex pain syndrome 2/2 Discitis - Dilaudid 0.5mg q4hr PRN for pain 7-10 second line - [place] 10/325mg 1tab q4hr PRN for pain 7-10 first line - [place] 5/325mg 1tab q4hr PRN for pain 4-6 -Tylenol 650mg q4hr PRN for pain 1-3 2. Neuropathic pain Gabapentin 100mg PO BID 3. Muscle Spasm Robaxin 500mg 1tab PO Q8HR 4. Bowel Regimen - by Primary team -start pain regimen as above -Monitor for S/E such as AMS, Lethargy/sedation, changes in respiratory function -Continue BP parameters -APS( Acute Pain services) will continue to follow -please call pain management for any pain-related concerns or questions Goal: Daily pain control to improve function and/or quality of life ([x]) Pain control until condition naturally resolves ([x]) Inpatient pain control ([x]) Improved sleep cycle ([x]) all narcotics medications will be adjusted according to the patient's medical condition during the hospital stay Alll diagnostic images/lab and medical records during the course of this admission as well as [facility] records reviewed Risk versus benefit of opiate medications: All risk and benefit were reviewed with the patient and family members, risk not limited to respiratory depression, accidental overdose, risk of fall, altered mental status, constipation, dependency, addiction, withdrawn, sudden . Plan discussed with: The pain plan of care has been discussed with the patient and the nursing staff. Patient is in agreement with the following plan of care and wishes to proceed. Questions and concerns have been answered to the patient' s satisfaction. Patient has verbalized understanding. PDMP 10/18/2024 09/27/2024 1 Lyrica 200 Mg Capsule 60.00 30 Is Ali [phone] Wal ([id number]) 0 2.68 LMET Medicaid [place] 09/03/2024 03/16/2024 1 Pregabalin 100 Mg Capsule 60.00 30 [facility] [id number] Heb ([id number]) 1 1.34 LME Comm Ins [place] 07/07/2024 03/16/2024 1 Pregabalin 100 Mg Capsule 60.00 30 Ke [id number] Heb ([id number]) 0 1.34 LME Comm Ins [place] 05/21/2024 03/16/2024 1 Pregabalin 100 Mg Capsule 60.00 30 Ke [id number] Wal ([id number]) 1 1.34 LMET Private Pay [place] 03/30/2024 03/16/2024 1 Pregabalin 100 Mg Capsule 60.00 30 Ke [id number] Wal ([id number]) 0 1.34 LMET Comm Ins [place] 02/20/2024 10/20/2023 1 Pregabalin 100 Mg Capsule 60.00 30 [place] [id number] Wal ([id number]) 2 1.34 LMET Comm Ins [place] 01/12/2024 10/20/2023 1 Pregabalin 100 Mg Capsule 60.00 30 [place] [id number] Wal ([id number]) 1 1.34 LMET Comm Ins [place] 11/30/2023 10/20/2023 1 Pregabalin 100 Mg Capsule 60.00 30 [place] [id number] Wal ([id number]) 0 1.34 LMET Comm Ins [place] 10/20/2023 10/20/2023 1 Pregabalin 100 Mg Capsule 60.00 30 [place] [id number] Wal (9671) 0 1.34 LMET Comm Ins [place] at 0838 at 0939 [facility] #:[id number] END OF REPORT [facility] 2024-11-02 09:01:00 [facility] ([facility]) Hospitalist Progress Note REPORT#:[id number] REPORT STATUS: Signed REPORT INITIALIZATION DATE:11/02/24 TIME: 900 PATIENT: MARY GRACE CRAWLEY UNIT #: [id number] ROOM/BED: 603-1 : 76 AGE: 49 SEX: F ATTEND: Claudine Davis MD ADM AUTHOR: Keshawn Garcia NP REPT SERVICE DT/TIME: 11/02/24 0901 * ALL edits or amendments must be made on the electronic/computer document * Subjective Chief complaint: Her pain is controlled with meds. No CP, fever, chills. No N/v/d. BP and HR stable. Review of Systems Constitutional: Reports: fatigue, generalized weakness. Eyes: Denies: discharge, diplopia, eye pain. Respiratory: Denies: hemoptysis, non productive cough, parox nocturnal dyspnea, pleuritic pain, productive cough (sputum). Cardiovascular: Denies: [place] (dyspnea on exertion), edema, orthopnea. GI: Denies: abdominal pain, constipation, diarrhea, GERD, hiatal hernia, melena. : Denies: flank pain, nocturia, pelvic pain, urgency. Musculoskeletal: Reports: lumbar pain. Heme: Denies: bleeding, bruising, petechiae. Neuro: Denies: change in LOC, dizziness, gait problem, lightheaded. Psych: Denies: auditory hallucination, confusion, depression. Objective General VS/I O: Vital Signs: Date Time Temp Pulse Resp B/P B/P Pulse O2 O2 Flow FiO2 Mean Ox Delivery Rate 11/02 0719 36.8 111 14 163/81 0.0 99 Room air 11/02 0418 105 15 128/64 0.0 95 Room air 11/02 0012 110 17 137/73 0.0 99 Room air 11/02 0008 111 18 137/73 99 99 11/01 1936 115 15 153/74 0.0 99 Nasal cannula 11/01 1715 36.5 110 20 155/78 0.0 100 Room air 11/01 1229 36.6 106 18 127/68 0.0 93 Room air 24 hour I O ending at 0700: 11/02 0700 11/01 1900 Intake Total 200 Output Total Balance 200 Intake, Oral 200 PATIENT WEIGHT: Weight (lb): Weight (oz): Weight (kg): 90.400 Medications: Active Meds + DC'd Last 24 Hrs Gadoterate Meglumine (DOTAREM) 19 ML .STK-MED ONE IV (DC) Potassium Phosphate (POTASSIUM PHOSPHATE) 15 MM ONCE ONE IV (DC) Sodium Chloride (SODIUM CHLORIDE 0.9%) 250 ML Potassium Chloride (POTASSIUM CHLORIDE 20MEQ TAB.ER) 20 MEQ Q2H PO (DC) Insulin Glargine (Semglee) 25 UNIT DAILY SUBQ (DC) Insulin Glargine (Semglee) 25 UNIT DAILY SUBQ Gabapentin (NEURONTIN) 100 MG BID PO Insulin Human Lispro (Admelog) 8 UNIT AC SUBQ Methocarbamol (ROBAXIN) 500 MG Q8H PO Insulin Human Lispro (Admelog) 0 AC HS SUBQ Hydrocodone Bitart/Acetaminophen (NORCO 5/325) 1 TAB Q4H PRN PRN PO Hydrocodone Bitart/Acetaminophen (NORCO 10/325) 1 TAB Q4H PRN PRN PO Hydromorphone HCl (DILAUDID) 1 MG Q4H PRN PRN IV Acetaminophen (TYLENOL) 650 MG Q4H PRN PRN PO Albuterol/Ipratropium (DUONEB) 3 ML RTQ4H PRN PRN NEB Dextrose/Water (DEXTROSE 10% IN WATER) 125 ML ASDIR PRN IV (CKD) Dextrose/Water (DEXTROSE 10% IN WATER) 250 ML ASDIR PRN IV (CKD) Docusate Sodium (COLACE) 100 MG DAILY PRN PRN PO Glucagon (GLUCAGON) 1 MG ASDIR PRN IM Hydralazine HCl (APRESOLINE) 10 MG Q6H PRN PRN IV Ondansetron HCl (ZOFRAN) 4 MG Q4H PRN PRN IV Dextrose/Water (Dextrose 10% 1,000 mL) 1,000 ML ASDIR IV (DC) Insulin Human Regular (MYXREDLIN 100 UNITS/NS 100ML) 100 ML ASDIR IV (DC ) Magnesium Sulfate (MAGNESIUM SULFATE 2GM/SWFI 50ML) 50 ML ASDIR PRN IV ( DC) Magnesium Sulfate (MAGNESIUM SULFATE 4GM/SWFI 100ML) 100 ML ASDIR PRN IV (DC) Potassium Chloride (POTASSIUM CHLORIDE 20MEQ TAB.ER) 20 MEQ ASDIR PRN PO (DC) Potassium Chloride (K-MOSES 20 MEQ PACKET) 20 MEQ ASDIR PRN FEED-TUBE (DC) Potassium Chloride (KCL 10MEQ/SWFI 50ML) 50 ML ASDIR PRN IV (DC) Potassium Phosphate (POTASSIUM PHOSPHATE) 15 MM ASDIR PRN IV (DC) Sodium Chloride (SODIUM CHLORIDE 0.9%) 250 ML Dietitian nutrition assessment The data set between the solid lines has been imported from the dietitian's assessment. BMI Calculated: 27.0 Nutrition related diagnosis: Nutrition diagnosis details: Nutrition problem: Nutrition etiology: Nutrition signs and symptoms: Nutrition prescription: Dietitian name: Assessment completed: Physical Exam General appearance: alert, awake, oriented Head/Eyes: atraumatic, normocephalic, PERRLA Neck: supple/no meningismus, no bruit/NL carotids, no JVD Cardiovascular: normal capillary refill, normal heart sounds, regular rate rhythm Respiratory: aerating well, symmetric expansion, no distress Abdomen: non-tender, normal bowel sounds, soft Genitourinary: no bladder distention, no flank pain Extremities: no calf tenderness, no clubbing, no cyanosis Musculoskeletal: no CVA tenderness, no muscle spasm Neuro/OYSTER TONGER: alert, oriented X 3, CNII-XII intact Results Findings/Data: Laboratory Tests 11/02 11/01 11/01 11/01 11/01 0846 2026 1715 1229 1107 Chemistry POC Glucose (70 - 110 MG/DL) 211 H 197 H 147 H 189 H 172 H 11/01 0910 Chemistry Sodium (134 - 147 mEq/L) 135 Potassium (3.4 - 5.0 mEq/L) 3.0 L Chloride (100 - 108 mEq/L) 109 H Carbon Dioxide (21 - 33 mEq/l) 17 L Anion Gap (0 - 20) 12 BUN (7 - 25 mg/dL) 7 Creatinine (0.6 - 1.3 mg/dL) 0.8 Glomerular Filtr Rate (95 - 105) 90.8 L Glucose (77 - 141 mg/dL) 194 H Calcium (8.0 - 10.5 mg/dL) 8.2 Phosphorus (2.5 - 4.9 MG/DL) 1.8 L Magnesium (1.6 - 2.6 mg/dL) 1.96 Albumin (3.4 - 5.0 g/dL) 3.70 Radiology data: Recent Impressions: MAGNETIC RESONANCE IMAGING - MRI L-SPINE W WO CON 11/01 1418 Report Impression - Status: SIGNED Entered: 11/01/2024 4727 IMPRESSION: 1. No evidence of discitis or osteomyelitis within the lumbar spine. 2. Mild multilevel lumbar spondylosis, without canal stenosis. This includes a disc protrusion at L4-5, as above. 3. Mild foraminal narrowing at a few levels, as above. 4. Borderline low-lying conus. No filum lipoma identified. Impression By: [email or web address] - Mike Figueroa M.D. Results: labs reviewed, vital signs reviewed, vital signs stable, current med profile rev'd Treatment Prophylaxis Treatment Prophylaxis Oxygen: room air Diagnosis, Assessment Plan Problem List/A P: 1. DKA (diabetic ketoacidosis) 2. Discitis 3. HYPOKALEMIA 4. HX OF DEPRESSION 5. HX OF ANXIETY 6. HX OF BIPOLAR 7. Hypomagnesemia 8. Hypophosphatemia Code status: full code Plan discussed with: patient, admitting physician, consultants, nurse Free Text DxA P Notes Free text DxA P notes: Plan: IMCU. MRI L-spine w w/out contrast showed No evidence of discitis or osteomyelitis within the lumbar spine. Continue Lantus 15 unit and ISS. Diabetic diet. Pain meds. Antiemetics. Follow labs and replace as needed. continue home meds. ID for discitis and ABX. PT and OT Monitor. at 0904 at 0732 [facility] #:[id number] END OF REPORT [facility] 2024-11-01 13:21:00 [facility] Progress Note REPORT#:[id number] REPORT STATUS: Signed REPORT INITIALIZATION DATE:11/01/24 TIME: 1321 PATIENT: MARY GRACE CRAWLEY UNIT #: [id number] ROOM/BED: [place] [address] : 76 AGE: 49 SEX: F ATTEND: Claudine Davis MD ADM AUTHOR: Ovidio Anderson REPT SERVICE DT/TIME: 11/01/24 1130 * ALL edits or amendments must be made on the electronic/computer document * Subjective Chief complaint: f/u DM II spoke with RN about Lantus tolerating diet Objective General VS: Last Documented: Result Date Time Pulse Ox 93 11/01 1229 B/P 127/68 11/01 1229 B/P Mean 0.0 11/01 1229 O2 Delivery Room air 11/01 1229 Temp 97.9 11/01 1229 Pulse 106 11/01 1229 Resp 18 11/01 1229 PATIENT WEIGHT: Weight (lb): Weight (oz): Weight (kg): 90.400 Medications: Active Meds + DC'd Last 24 Hrs Potassium Phosphate (POTASSIUM PHOSPHATE) 15 MM ONCE ONE IV Sodium Chloride (SODIUM CHLORIDE 0.9%) 250 ML Potassium Chloride (POTASSIUM CHLORIDE 20MEQ TAB.ER) 20 MEQ Q2H PO Insulin Glargine (Semglee) 25 UNIT DAILY SUBQ (DC) Insulin Glargine (Semglee) 25 UNIT DAILY SUBQ Gabapentin (NEURONTIN) 100 MG BID PO Insulin Human Lispro (Admelog) 8 UNIT AC SUBQ Methocarbamol (ROBAXIN) 500 MG Q8H PO Insulin Human Lispro (Admelog) 0 AC HS SUBQ Hydrocodone Bitart/Acetaminophen (NORCO 5/325) 1 TAB Q4H PRN PRN PO Hydrocodone Bitart/Acetaminophen (NORCO 10/325) 1 TAB Q4H PRN PRN PO Hydromorphone HCl (DILAUDID) 1 MG Q4H PRN PRN IV Acetaminophen (TYLENOL) 650 MG Q4H PRN PRN PO Albuterol/Ipratropium (DUONEB) 3 ML RTQ4H PRN PRN NEB Dextrose/Water (DEXTROSE 10% IN WATER) 125 ML ASDIR PRN IV (CKD) Dextrose/Water (DEXTROSE 10% IN WATER) 250 ML ASDIR PRN IV (CKD) Docusate Sodium (COLACE) 100 MG DAILY PRN PRN PO Glucagon (GLUCAGON) 1 MG ASDIR PRN IM Hydralazine HCl (APRESOLINE) 10 MG Q6H PRN PRN IV Ondansetron HCl (ZOFRAN) 4 MG Q4H PRN PRN IV Dextrose/Lactated Ringer's (Dextrose 5% / Lactated Ringers) 1,000 ML .Q6H40M IV (DC) Dextrose/Water (Dextrose 10% 1,000 mL) 1,000 ML ASDIR IV (DC) Insulin Human Regular (MYXREDLIN 100 UNITS/NS 100ML) 100 ML ASDIR IV (DC ) Magnesium Sulfate (MAGNESIUM SULFATE 2GM/SWFI 50ML) 50 ML ASDIR PRN IV ( DC) Magnesium Sulfate (MAGNESIUM SULFATE 4GM/SWFI 100ML) 100 ML ASDIR PRN IV (DC) Potassium Chloride (POTASSIUM CHLORIDE 20MEQ TAB.ER) 20 MEQ ASDIR PRN PO (DC) Potassium Chloride (K-MOSES 20 MEQ PACKET) 20 MEQ ASDIR PRN FEED-TUBE (DC) Potassium Chloride (KCL 10MEQ/SWFI 50ML) 50 ML ASDIR PRN IV (DC) Potassium Phosphate (POTASSIUM PHOSPHATE) 15 MM ASDIR PRN IV (DC) Sodium Chloride (SODIUM CHLORIDE 0.9%) 250 ML Sodium Chloride (SODIUM CHLORIDE 0.9%) 1,000 ML Q5H IV (DC) Dietitian nutrition assessment The data set between the solid lines has been imported from the dietitian's assessment. BMI Calculated: 27.0 Nutrition related diagnosis: Nutrition diagnosis details: Nutrition problem: Nutrition etiology: Nutrition signs and symptoms: Nutrition prescription: Dietitian name: Assessment completed: Physical Exam General appearance: alert, awake, oriented HEENT: normocephalic Neck: supple Cardiovascular: regular rate rhythm Respiratory: no distress Abdomen: soft Genitourinary: not indicated Extremities: warm Musculoskeletal: normal inspection Neuro/OYSTER TONGER: alert, oriented X 3, normal speech Skin: warm Findings/data: Laboratory Tests: 11/01 11/01 11/01 11/01 1107 0910 0504 0503 Chemistry Sodium (134 - 147 mEq/L) 135 135 Potassium (3.4 - 5.0 mEq/L) 3.0 L 3.3 L Chloride (100 - 108 mEq/L) 109 H 106 Carbon Dioxide (21 - 33 mEq/l) 17 L 17 L Anion Gap (0 - 20) 12 15 BUN (7 - 25 mg/dL) 7 9 Creatinine (0.6 - 1.3 mg/dL) 0.8 0.9 Glomerular Filtr Rate (95 - 105) 90.8 L 78.9 L Glucose (77 - 141 mg/dL) 194 H 234 H POC Glucose (70 - 110 MG/DL) 172 H Calcium (8.0 - 10.5 mg/dL) 8.2 8.7 Phosphorus (2.5 - 4.9 MG/DL) 1.8 L 1.9 L Magnesium (1.6 - 2.6 mg/dL) 1.96 2.06 Total Bilirubin (0.0 - 1.0 mg/dL) 0.50 AST (8 - 34 IUnit/L) 19 ALT (10 - 49 IUnit/L) 20 Total Alk Phosphatase (20 - 125 IUnit/L) 91 C-Reactive Protein (<5.0 MG/L) < 5.0 Total Protein (5.7 - 8.2 g/dL) 8.0 Albumin (3.4 - 5.0 g/dL) 3.70 3.90 Triglycerides (40 - 150 mg/dL) 428 H Cholesterol (<200 mg/dL) 250 H LDL Cholesterol Measurd (0 - 100 mg/dL) 162.0 H HDL Cholesterol (40 - 60 MG/DL) 34.4 L Cholesterol/HDL Ratio (3.27 - 4.44 RATIO) 7.27 H Hematology WBC (4.5 - 11.0 x10 3/uL) 7.6 RBC (3.54 - 5.02 x10 6/uL) 5.32 H Hgb (11.0 - 15.0 g/dL) 14.2 Hct (33.0 - 45.0 %) 42.2 MCV (81.0 - 99.0 fL) 79.3 L MCH (27.0 - 33.0 pg) 26.7 L MCHC (33.0 - 37.0 g/dL) 33.6 RDW (11.5 - 14.5 %) 15.7 H Plt Count (150 - 400 x10 3/uL) 337 MPV (7.0 - 9.0 fL) 8.9 Neut % (Auto) (56.0 - 77.0 %) 52.5 L Lymph % (Auto) (14.0 - 32.0 %) 30.1 [place] % (Auto) (4.8 - 9.0 %) 5.9 Eos % (Auto) (0.3 - 3.7 %) 10.3 H Baso % (Auto) (0.0 - 2.0 %) 0.9 Neut # (Auto) (2.0 - 7.6 x10 3/uL) 3.98 Lymph # (Auto) (1.0 - 3.8 x10 3/uL) 2.28 [place] # (Auto) (0.1 - 0.8 x10 3/uL) 0.45 Eos # (Auto) (0.0 - 0.2 x10 3/uL) 0.78 H Baso # (Auto) (0.0 - 0.2 x10 3/uL) 0.07 Abs Immat Gran (auto) (0.00 - 0.03 x10 3/uL) 0.02 Immature Gran % (0.0 - 2.0 %) 0.3 Nucleated RBC % (0 - 0 %) 0.0 Nucleated RBCs # (Man) (0.0 - 0.1 x10 3/uL) 0.00 ESR Westergren (0 - 20 mm/hr) 10/31 1851 1644 1329 Chemistry POC Glucose (70 - 110 MG/DL) 93 184 H 172 H Microbiology: Date/Time Procedure - Status Source Growth 11/01 902 Acid Fast Bacilli Smear - ORD ASPIRATE 11/01 902 Acid Fast Bacilli Culture - ORD ASPIRATE 11/01 902 Fungal Smear - ORD BF OTHER 11/01 902 Fungal Culture - ORD BF OTHER 11/01 902 Body Fluid Culture - ORD ASPIRATE 11/01 09 Anaerobic Culture - ORD ASPIRATE 11/01 902 Gram Stain - ORD ASPIRATE 11/01 0503 MRSA DNA Surveillance Screen - RECD NASAL Laboratory Tests: 11/01 11/01 11/01 11/01 10/31 1107 0910 0504 0503 1851 Chemistry Sodium (134 - 147 mEq/L) 135 135 Potassium (3.4 - 5.0 mEq/L) 3.0 L 3.3 L Chloride (100 - 108 mEq/L) 109 H 106 Carbon Dioxide (21 - 33 mEq/l) 17 L 17 L Anion Gap (0 - 20) 12 15 BUN (7 - 25 mg/dL) 7 9 Creatinine (0.6 - 1.3 mg/dL) 0.8 0.9 Glomerular Filtr Rate (95 - 105) 90.8 L 78.9 L Glucose (77 - 141 mg/dL) 194 H 234 H POC Glucose (70 - 110 MG/DL) 172 H 93 Calcium (8.0 - 10.5 mg/dL) 8.2 8.7 Phosphorus (2.5 - 4.9 MG/DL) 1.8 L 1.9 L Magnesium (1.6 - 2.6 mg/dL) 1.96 2.06 Total Bilirubin (0.0 - 1.0 mg/dL) 0.50 AST (8 - 34 IUnit/L) 19 ALT (10 - 49 IUnit/L) 20 Total Alk Phosphatase (20 - 125 IUnit/L) 91 C-Reactive Protein (<5.0 MG/L) < 5.0 Total Protein (5.7 - 8.2 g/dL) 8.0 Albumin (3.4 - 5.0 g/dL) 3.70 3.90 Triglycerides (40 - 150 mg/dL) 428 H Cholesterol (<200 mg/dL) 250 H LDL Cholesterol Measurd (0 - 100 mg/dL) 162.0 H HDL Cholesterol (40 - 60 MG/DL) 34.4 L Cholesterol/HDL Ratio (3.27 - 4.44 7.27 H RATIO) Hematology WBC (4.5 - 11.0 x10 3/uL) 7.6 RBC (3.54 - 5.02 x10 6/uL) 5.32 H Hgb (11.0 - 15.0 g/dL) 14.2 Hct (33.0 - 45.0 %) 42.2 MCV (81.0 - 99.0 fL) 79.3 L MCH (27.0 - 33.0 pg) 26.7 L MCHC (33.0 - 37.0 g/dL) 33.6 RDW (11.5 - 14.5 %) 15.7 H Plt Count (150 - 400 x10 3/uL) 337 MPV (7.0 - 9.0 fL) 8.9 Neut % (Auto) (56.0 - 77.0 %) 52.5 L Lymph % (Auto) (14.0 - 32.0 %) 30.1 [place] % (Auto) (4.8 - 9.0 %) 5.9 Eos % (Auto) (0.3 - 3.7 %) 10.3 H Baso % (Auto) (0.0 - 2.0 %) 0.9 Neut # (Auto) (2.0 - 7.6 x10 3/uL) 3.98 Lymph # (Auto) (1.0 - 3.8 x10 3/uL) 2.28 [place] # (Auto) (0.1 - 0.8 x10 3/uL) 0.45 Eos # (Auto) (0.0 - 0.2 x10 3/uL) 0.78 H Baso # (Auto) (0.0 - 0.2 x10 3/uL) 0.07 Abs Immat Gran (auto) (0.00 - 0.03 0.02 x10 3/uL) Immature Gran % (0.0 - 2.0 %) 0.3 Nucleated RBC % (0 - 0 %) 0.0 Nucleated RBCs # (Man) (0.0 - 0.1 0.00 x10 3/uL) ESR [place]gren (0 - 20 mm/hr) 13 03/12 03/12 1644 1329 Chemistry POC Glucose (70 - 110 MG/DL) 184 H 172 H Microbiology: Date/Time Procedure - Status Source Growth 11/01 902 Acid Fast Bacilli Smear - ORD ASPIRATE 11/01 09 Acid Fast Bacilli Culture - ORD ASPIRATE 11/01 09 Fungal Smear - ORD BF OTHER 11/01 09 Fungal Culture - ORD BF OTHER 11/01 09 Body Fluid Culture - ORD ASPIRATE 11/01 09 Anaerobic Culture - ORD ASPIRATE 11/01 09 Gram Stain - ORD ASPIRATE 11/01 0503 MRSA DNA Surveillance Screen - RECD NASAL Diagnosis, Assessment Plan Free Text A P: 1.DM II in DKA DKA resolved adjust Lantus adjust Humalog monitor glucose diabetic diet diabetic teaching DC Plan: Lantus and Humalog; continue with insulin pump when supplies available. 2. Discitis MRI L-spine w w/out contrast no emergent neurosurgical intervention ID and neurosurgery following at 1400 at 1104 RPT #:[id number] END OF REPORT [facility] 2024-11-01 12:44:00 [facility] ([facility] Pain Management Progress Note REPORT#:[id number] REPORT STATUS: Signed REPORT INITIALIZATION DATE:11/01/24 TIME: 1244 PATIENT: MARY GRACE CRAWLEY UNIT #: [id number] ROOM/BED: [place] [address] : 77 AGE: 49 SEX: F ATTEND: Claudine Davis MD ADM AUTHOR: Emeterio Garcia NP REPT SERVICE DT/TIME: 11/01/24 1244 * ALL edits or amendments must be made on the electronic/computer document * Subjective Chief complaint: Back pain Interval History 11/01/2024 Patient chart reviewed and event noted patient was seen resting in the bed, hemodianamically stable, alert and oriented Pain is manageable Mood is okay sleep okay Denies Constipation HPI: Requesting clinician: Claudine Holland Reason for consult: Acute complex pain syndrome for evaluation and management This is a 49 year old female with past medical hx of DM type II, Bipolar, Anxiety, depression presents with back pain found to have discitis as well as elevated anion gap with acidosis. Review of Systems Additional notes: Review was conducted and was negative except for what's noted in the HPI and Medical History. The following systems were reviewed: Constitutional, cardiovascular, respiratory, gastrointestinal, genitourinary, musculoskeletal, neurologic, psychiatric, endocrinological, and hematologic Objective General VS/I O: Vital Signs Date Temp Pulse Resp B/P B/P Mean Pulse Ox FiO2 10/31-11/01 97.9-98.2 96-113 10-37 127-163/65-73 0.0-100 93-99 Last Documented: Result Date Time Pulse Ox 93 11/01 1229 B/P 127/68 11/01 1229 B/P Mean 0.0 11/01 1229 O2 Delivery Room air 11/01 1229 Temp 97.9 11/01 1229 Pulse 106 11/01 1229 Resp 18 11/01 1229 24 hour I O ending at 0700: 11/01 0700 10/31 1900 Intake Total Output Total Balance Number Voids 1 PATIENT WEIGHT: Weight (lb): Weight (oz): Weight (kg): 90.400 Medications: Active Meds + DC'd Last 24 Hrs Potassium Phosphate (POTASSIUM PHOSPHATE) 15 MM ONCE ONE IV Sodium Chloride (SODIUM CHLORIDE 0.9%) 250 ML Potassium Chloride (POTASSIUM CHLORIDE 20MEQ TAB.ER) 20 MEQ Q2H PO Insulin Glargine (Semglee) 25 UNIT DAILY SUBQ (DC) Insulin Glargine (Semglee) 25 UNIT DAILY SUBQ Gabapentin (NEURONTIN) 100 MG BID PO Insulin Human Lispro (Admelog) 8 UNIT AC SUBQ Methocarbamol (ROBAXIN) 500 MG Q8H PO Insulin Human Lispro (Admelog) 0 AC HS SUBQ Hydrocodone Bitart/Acetaminophen (NORCO 5/325) 1 TAB Q4H PRN PRN PO Hydrocodone Bitart/Acetaminophen (NORCO 10/325) 1 TAB Q4H PRN PRN PO Hydromorphone HCl (DILAUDID) 1 MG Q4H PRN PRN IV Acetaminophen (TYLENOL) 650 MG Q4H PRN PRN PO Albuterol/Ipratropium (DUONEB) 3 ML RTQ4H PRN PRN NEB Dextrose/Water (DEXTROSE 10% IN WATER) 125 ML ASDIR PRN IV (CKD) Dextrose/Water (DEXTROSE 10% IN WATER) 250 ML ASDIR PRN IV (CKD) Docusate Sodium (COLACE) 100 MG DAILY PRN PRN PO Glucagon (GLUCAGON) 1 MG ASDIR PRN IM Hydralazine HCl (APRESOLINE) 10 MG Q6H PRN PRN IV Ondansetron HCl (ZOFRAN) 4 MG Q4H PRN PRN IV Dextrose/Lactated Ringer's (Dextrose 5% / Lactated Ringers) 1,000 ML .Q6H40M IV (DC) Dextrose/Water (Dextrose 10% 1,000 mL) 1,000 ML ASDIR IV (DC) Insulin Human Regular (MYXREDLIN 100 UNITS/NS 100ML) 100 ML ASDIR IV (DC ) Magnesium Sulfate (MAGNESIUM SULFATE 2GM/SWFI 50ML) 50 ML ASDIR PRN IV ( DC) Magnesium Sulfate (MAGNESIUM SULFATE 4GM/SWFI 100ML) 100 ML ASDIR PRN IV (DC) Potassium Chloride (POTASSIUM CHLORIDE 20MEQ TAB.ER) 20 MEQ ASDIR PRN PO (DC) Potassium Chloride (K-MOSES 20 MEQ PACKET) 20 MEQ ASDIR PRN FEED-TUBE (DC) Potassium Chloride (KCL 10MEQ/SWFI 50ML) 50 ML ASDIR PRN IV (DC) Potassium Phosphate (POTASSIUM PHOSPHATE) 15 MM ASDIR PRN IV (DC) Sodium Chloride (SODIUM CHLORIDE 0.9%) 250 ML Sodium Chloride (SODIUM CHLORIDE 0.9%) 1,000 ML Q5H IV (DC) Dietitian nutrition assessment The data set between the solid lines has been imported from the dietitian's assessment. BMI Calculated: 27.0 Nutrition related diagnosis: Nutrition diagnosis details: Nutrition problem: Nutrition etiology: Nutrition signs and symptoms: Nutrition prescription: Dietitian name: Assessment completed: Physical Exam General appearance: alert, awake, oriented, no acute distress, pleasant, conversational, mental status normal, no respiratory distress Head/eyes: atraumatic, PERRLA Neck: full range of motion Respiratory: clear to auscultation Abdomen: soft Extremities: moves all (Back pain) Neuro/OYSTER TONGER: alert Results Findings/data: Laboratory Tests: 11/01 11/01 11/01 11/01 10/31 1107 0910 0504 0503 1851 Chemistry Sodium (134 - 147 mEq/L) 135 135 Potassium (3.4 - 5.0 mEq/L) 3.0 L 3.3 L Chloride (100 - 108 mEq/L) 109 H 106 Carbon Dioxide (21 - 33 mEq/l) 17 L 17 L Anion Gap (0 - 20) 12 15 BUN (7 - 25 mg/dL) 7 9 Creatinine (0.6 - 1.3 mg/dL) 0.8 0.9 Glomerular Filtr Rate (95 - 105) 90.8 L 78.9 L Glucose (77 - 141 mg/dL) 194 H 234 H POC Glucose (70 - 110 MG/DL) 172 H 93 Calcium (8.0 - 10.5 mg/dL) 8.2 8.7 Phosphorus (2.5 - 4.9 MG/DL) 1.8 L 1.9 L Magnesium (1.6 - 2.6 mg/dL) 1.96 2.06 Total Bilirubin (0.0 - 1.0 mg/dL) 0.50 AST (8 - 34 IUnit/L) 19 ALT (10 - 49 IUnit/L) 20 Total Alk Phosphatase (20 - 125 IUnit/L) 91 C-Reactive Protein (<5.0 MG/L) < 5.0 Total Protein (5.7 - 8.2 g/dL) 8.0 Albumin (3.4 - 5.0 g/dL) 3.70 3.90 Triglycerides (40 - 150 mg/dL) 428 H Cholesterol (<200 mg/dL) 250 H LDL Cholesterol Measurd (0 - 100 mg/dL) 162.0 H HDL Cholesterol (40 - 60 MG/DL) 34.4 L Cholesterol/HDL Ratio (3.27 - 4.44 7.27 H RATIO) Hematology WBC (4.5 - 11.0 x10 3/uL) 7.6 RBC (3.54 - 5.02 x10 6/uL) 5.32 H Hgb (11.0 - 15.0 g/dL) 14.2 Hct (33.0 - 45.0 %) 42.2 MCV (81.0 - 99.0 fL) 79.3 L MCH (27.0 - 33.0 pg) 26.7 L MCHC (33.0 - 37.0 g/dL) 33.6 RDW (11.5 - 14.5 %) 15.7 H Plt Count (150 - 400 x10 3/uL) 337 MPV (7.0 - 9.0 fL) 8.9 Neut % (Auto) (56.0 - 77.0 %) 52.5 L Lymph % (Auto) (14.0 - 32.0 %) 30.1 [place] % (Auto) (4.8 - 9.0 %) 5.9 Eos % (Auto) (0.3 - 3.7 %) 10.3 H Baso % (Auto) (0.0 - 2.0 %) 0.9 Neut # (Auto) (2.0 - 7.6 x10 3/uL) 3.98 Lymph # (Auto) (1.0 - 3.8 x10 3/uL) 2.28 [place] # (Auto) (0.1 - 0.8 x10 3/uL) 0.45 Eos # (Auto) (0.0 - 0.2 x10 3/uL) 0.78 H Baso # (Auto) (0.0 - 0.2 x10 3/uL) 0.07 Abs Immat Gran (auto) (0.00 - 0.03 0.02 x10 3/uL) Immature Gran % (0.0 - 2.0 %) 0.3 Nucleated RBC % (0 - 0 %) 0.0 Nucleated RBCs # (Man) (0.0 - 0.1 0.00 x10 3/uL) ESR Westergren (0 - 20 mm/hr) 13 10/31 10/31 1644 1329 Chemistry POC Glucose (70 - 110 MG/DL) 184 H 172 H Microbiology: Date/Time Procedure - Status Source Growth 11/01 902 Acid Fast Bacilli Smear - ORD ASPIRATE 11/01 902 Acid Fast Bacilli Culture - ORD ASPIRATE 11/01 902 Fungal Smear - ORD BF OTHER 11/01 09 Fungal Culture - ORD BF OTHER 11/01 09 Body Fluid Culture - ORD ASPIRATE 11/01 09 Anaerobic Culture - ORD ASPIRATE 11/01 09 Gram Stain - ORD ASPIRATE 11/01 0503 MRSA DNA Surveillance Screen - RECD NASAL Diagnosis, Assessment Plan Free text A P: Assessment/ Plan Patient assessed. chart reviewed. Will continue on current medical management. No side effect noted Daily Plan 11/01/2024 1. Acute complex pain syndrome 2/2 Discitis - Dilaudid 0.5mg q4hr PRN for pain 7-10 second line - [place] 10/325mg 1tab q4hr PRN for pain 7-10 first line - [place] 5/325mg 1tab q4hr PRN for pain 4-6 -Tylenol 650mg q4hr PRN for pain 1-3 2. Neuropathic pain Gabapentin 100mg PO BID 3. Muscle Spasm Robaxin 500mg 1tab PO Q8HR 4. Bowel Regimen - by Primary team -start pain regimen as above -Monitor for S/E such as AMS, Lethargy/sedation, changes in respiratory function -Continue BP parameters -APS( Acute Pain services) will continue to follow -please call pain management for any pain-related concerns or questions Goal: Daily pain control to improve function and/or quality of life ([x]) Pain control until condition naturally resolves ([x]) Inpatient pain control ([x]) Improved sleep cycle ([x]) all narcotics medications will be adjusted according to the patient's medical condition during the hospital stay Alll diagnostic images/lab and medical records during the course of this admission as well as [employer] records reviewed Risk versus benefit of opiate medications: All risk and benefit were reviewed with the patient and family members, risk not limited to respiratory depression, accidental overdose, risk of fall, altered mental status, constipation, dependency, addiction, withdrawn, sudden . Plan discussed with: The pain plan of care has been discussed with the patient and the nursing staff. Patient is in agreement with the following plan of care and wishes to proceed. Questions and concerns have been answered to the patient' s satisfaction. Patient has verbalized understanding. PDMP 10/18/2024 09/27/2024 1 Lyrica 200 Mg Capsule 60.[address] [facility] [id number] [place] ([id number]) 0 2.68 LMET Medicaid [place] 09/03/2024 03/16/2024 1 Pregabalin 100 Mg Capsule 60.00 30 Ke [id number] [place] ([id number]) 1 1.34 LME Comm Ins [place] 07/07/2024 03/16/2024 1 Pregabalin 100 Mg Capsule 60.00 30 [facility] [id number] Heb ([id number]) 0 1.34 LME Comm Ins [place] 05/21/2024 03/16/2024 1 Pregabalin 100 Mg Capsule 60.00 30 [facility] [id number] Wal ([id number]) 1 1.34 LMET Private Pay [place] 03/30/2024 03/16/2024 1 Pregabalin 100 Mg Capsule 60.00 30 Ke [id number] Wal ([id number]) 0 1.34 LMET Comm Ins [place] 02/20/2024 10/20/2023 1 Pregabalin 100 Mg Capsule 60.00 30 [place] [id number] [place] ([id number]) 2 1.34 LMET Comm Ins [place] 01/12/2024 10/20/2023 1 Pregabalin 100 Mg Capsule 60.00 30 [place] [id number] [place] ([id number]) 1 1.34 LMET Comm Ins [place] 11/30/2023 10/20/2023 1 Pregabalin 100 Mg Capsule 60.00 30 [place] [id number] [place] ([id number]) 0 1.34 LMET Comm Ins [place] 10/20/2023 10/20/2023 1 Pregabalin 100 Mg Capsule 60.00 30 [place] [id number] [place] ([id number]) 0 1.34 LMET Comm Ins [place] at 0838 at 0929 RPT #:[id number] END OF REPORT [facility] 2024-11-01 12:09:00 [facility] ([facility]) Infect Disease Consult Note REPORT#:[id number] REPORT STATUS: Signed REPORT INITIALIZATION DATE:11/01/24 TIME: 1208 PATIENT: MARY GRACE CRAWLEY UNIT #: [id number] ROOM/BED: [place] [id number] : 76 AGE: 49 SEX: F ATTEND: Claudine Davis MD ADM AUTHOR: Bairon Riley NP REPT SERVICE DT/TIME: 11/01/24 1209 * ALL edits or amendments must be made on the electronic/computer document * History of Present Illness Requesting Clinician: Kisha Garcia NP Reason for consult: Diskitis Chief complaint: Back pain PCP: PCP: No Primary or Family Physician HPI: Pt is a 49yo female with PMH of DM2, Peripheral neuopathy, Bipolar who presented to the er at [place] secondary to acute osnet pain that starrted the day she presented to the er that progressively, denies associated symptoms of fever, chills, BLE weakness or numbness, no bowel or bladder incontinence. She was transferred to [facility] for neurosurgery eval after imaging showed concerning for vertebral diskitis/OM. ID was consulted to assist with abx and POC History - Adult longitudinal Past medical history: Reports: Depression/mood disorder, Diabetes mellitus. Additional medical history: ANXIETY, Bipolar Past surgical history: Reports: Amputation (Lt bka). Alcohol use: Denies EtOH use Drug use: Denies recreational drugs Smoking status for patients 13 years old or older: Former Smoker Other social history: Good social support (lives w/mom bf) Medications: Home Medications: Medication Dose/Rte/Freq Days Qty Entered Last Max Daily Dose Reviewed PREGABALIN (LYRICA) 200 MG PO BID 10/31/24 10/31/24 Strength: 200 MG CAP 1755 1758 CELECOXIB (CeleBREX) 200 MG PO BID 10/31/24 10/31/24 Strength: 200 MG CAP 1755 1758 LURASIDONE (LATUDA) 20 MG PO DAILY 10/31/24 10/31/24 Strength: 20 MG TAB 1756 1758 CITALOPRAM (CeleXA) 40 MG PO DAILY 10/31/24 10/31/24 Strength: 40 MG TAB 1756 1758 traZODone (DESYREL) 100 MG PO BEDTIME 10/31/24 10/31/24 Strength: 100 MG TAB 1756 1758 Dapagliflozin Propanediol 10 MG PO DAILY 10/31/24 10/31/24 (FARXIGA) 1757 1758 Strength: 10 MG TAB ATORVASTATIN (LIPITOR) 20 MG PO BEDTIME 10/31/24 10/31/24 Strength: 20 MG TAB 175 175 hydrOXYzine PAMOATE 10/31/24 10/31/24 (VISTARIL) 1758 1758 Strength: 100 MG CAP ONDANSETRON ODT 4 MG PO 15 02/28/24 10/31/24 (ZOFRAN ODT) Q6H PRN PRN 1826 1758 Strength: 4 MG TAB.RAPDIS NAUSEA/VOMITING Current Hospital Medications: Autonomic Drugs Sig/Drake Start time Last Medication Dose Route Stop Time Status Admin Methocarbamol 500 MG Q8H 10/31 1200 AC 11/01 (ROBAXIN) PO 01/29 1159 1124 Albuterol/Ipratropium 3 ML RTQ4H PRN PRN 10/31 1045 AC (DUONEB) NEB 01/29 1044 Cardiovascular Drugs Sig/Drake Start time Last Medication Dose Route Stop Time Status Admin Hydralazine HCl 10 MG Q6H PRN PRN 10/31 1045 AC 11/01 (APRESOLINE) IV 01/29 1044 1030 Central Nervous System Agents Sig/Drake Start time Last Medication Dose Route Stop Time Status Admin Gabapentin 100 MG BID 10/31 2100 AC 11/01 (NEURONTIN) PO 01/29 2059 0822 Hydrocodone Bitart/ 1 TAB Q4H PRN PRN 10/31 1115 AC Acetaminophen PO 11/05 1114 (NORCO 5/325) Hydrocodone Bitart/ 1 TAB Q4H PRN PRN 10/31 1115 AC 11/01 Acetaminophen PO 11/05 1114 0830 (NORCO 10/325) Hydromorphone HCl 1 MG Q4H PRN PRN 10/31 1115 AC 11/01 (DILAUDID) IV 11/05 1114 1129 Acetaminophen 650 MG Q4H PRN PRN 10/31 1045 AC (TYLENOL) PO 01/29 1044 Magnesium Sulfate 50 ML ASDIR PRN 10/31 0600 DC (MAGNESIUM SULFATE IV 01/29 0559 2GM/SWFI 50ML) Magnesium Sulfate 100 ML ASDIR PRN 10/31 0600 DC (MAGNESIUM SULFATE IV 01/29 0559 4GM/SWFI 100ML) Electrolytic, Caloric, And Terry Sig/Drake Start time Last Medication Dose Route Stop Time Status Admin Potassium Phosphate 15 MM ONCE ONE 11/01 1200 AC (POTASSIUM PHOSPHATE) IV 11/01 1459 Sodium Chloride 250 ML (SODIUM CHLORIDE 0.9%) Potassium Chloride 20 MEQ Q2H 11/01 1145 AC (POTASSIUM CHLORIDE PO 11/01 1346 20MEQ TAB.ER) Dextrose/Water 125 ML ASDIR PRN 10/31 1045 CKD (DEXTROSE 10% IN IV 01/29 1044 WATER) Dextrose/Water 250 ML ASDIR PRN 10/31 1045 CKD (DEXTROSE 10% IN IV 01/29 1044 WATER) Dextrose/Lactated 1,000 ML .Q6H40M 10/31 0645 DC Ringer's IV 10/31 1324 (Dextrose 5% / Lactated Ringers) Dextrose/Water 1,000 ML ASDIR 10/31 0600 DC (Dextrose 10% 1,000 IV 01/29 0559 mL) Potassium Chloride 20 MEQ ASDIR PRN 10/31 0600 DC 11/01 (POTASSIUM CHLORIDE PO 01/29 0559 1030 20MEQ TAB.ER) Potassium Chloride 20 MEQ ASDIR PRN 10/31 0600 DC (K-MOSES 20 MEQ PACKET) FEED-TUBE 01/29 0559 Potassium Chloride 50 ML ASDIR PRN 10/31 0600 DC (KCL 10MEQ/SWFI 50ML) IV 01/29 0559 Potassium Phosphate 15 MM ASDIR PRN 10/31 0600 DC (POTASSIUM PHOSPHATE) IV 01/29 0559 Sodium Chloride 250 ML (SODIUM CHLORIDE 0.9%) Sodium Chloride 1,000 ML Q5H 10/31 0430 DC 11/01 (SODIUM CHLORIDE IV 11/01 0424 0030 0.9%) Gastrointestinal Drugs Sig/Drake Start time Last Medication Dose Route Stop Time Status Admin Docusate Sodium 100 MG DAILY PRN PRN 10/31 1045 AC 11/01 (COLACE) PO 01/29 1044 0830 Ondansetron HCl 4 MG Q4H PRN PRN 10/31 1045 AC 10/31 (ZOFRAN) IV 01/29 1044 1639 Hormones And Synthetic Substit Sig/Drake Start time Last Medication Dose Route Stop Time Status Admin Insulin Glargine 25 UNIT DAILY 11/01 1120 DC (Semglee) SUBQ 01/30 1119 Insulin Glargine 25 UNIT DAILY 11/01 1115 AC 11/01 (Semglee) SUBQ 01/30 1103 1124 Insulin Human Lispro 8 UNIT AC 10/31 1300 AC 11/01 (Admelog) SUBQ 01/29 1259 0823 Insulin Human Lispro 0 AC HS 10/31 1130 AC 11/01 (Admelog) SUBQ 01/29 1129 0823 Glucagon 1 MG ASDIR PRN 10/31 1045 AC (GLUCAGON) IM 01/29 1044 Insulin Human Regular 100 ML ASDIR 10/31 0600 DC (MYXREDLIN 100 UNITS/ IV 01/29 0559 NS 100ML) Allergies: Coded Allergies: No Known Allergies (02/28/24) Occupation: disabled Ambulatory status: Independent (Live [place]) Review of Systems All systems rev neg: except as marked Objective General VS/I O: Vital Signs Date Temp Pulse Resp B/P B/P Mean Pulse Ox FiO2 10/31-11/01 98.1-98.2 96-113 10-37 133-163/65-73 0.0-100 93-99 Last Documented: Result Date Time Pulse Ox 98 11/01 0757 B/P 133/66 11/01 0757 B/P Mean 0.0 11/01 0757 O2 Delivery Room air 11/01 0757 Temp 98.2 11/01 0757 Pulse 105 11/01 0757 Resp 21 11/01 0757 Vital Signs: Date Time Temp Pulse Resp B/P B/P Pulse O2 O2 Flow FiO2 Mean Ox Delivery Rate 11/01 0757 98.2 105 21 133/66 0.0 98 Room air 11/01 0421 109 11 139/65 0.0 97 Room air 10/31 2336 107 25 163/68 0.0 99 Room air 10/31 1853 98.1 96 10 145/72 0.0 93 Room air 10/31 1703 98.2 10/31 1700 106 37 97 10/31 1600 112 15 99 10/31 1500 113 27 98 10/31 1400 107 25 147/72 100 98 10/31 1336 108 22 133/73 95 98 24 hour I O ending at 0700: 11/01 0700 10/31 1900 Intake Total Output Total Balance Number Voids 1 PATIENT WEIGHT: Weight (lb): Weight (oz): Weight (kg): 90.400 Physical Exam General appearance: alert, awake, oriented Wound/incision: Location: LEFT AKA (old) Multiple scratches to RLE Head/Eyes: atraumatic ENT: moist mucosal membranes Neck: full range of motion Cardiovascular: normal heart sounds Respiratory: clear to auscultation, aerating well, no distress Abdomen: non-tender, soft Neuro/OYSTER TONGER: alert, oriented X 3, normal speech Skin: no rash Results Findings/Data: Laboratory Tests 11/01/24 0910: [Embedded Image Not Available] 11/01/24 0504: [Embedded Image Not Available] 10/31/24 0329: [Embedded Image Not Available] Current Medications Sig/Drake Start time Last Medication Dose Route Stop Time Status Admin Potassium Phosphate 15 MM ONCE ONE 11/01 1200 AC Sodium Chloride 250 ML IV 11/01 1459 Potassium Chloride 20 MEQ Q2H 11/01 1145 AC PO 11/01 1346 Insulin Glargine 25 UNIT DAILY 11/01 1120 DC SUBQ 01/30 1119 Insulin Glargine 25 UNIT DAILY 11/01 1115 AC 11/01 SUBQ 01/30 1103 1124 Gabapentin 100 MG BID 10/31 2100 AC 11/01 PO 01/29 2059 0822 Insulin Human Lispro 8 UNIT AC 10/31 1300 AC 11/01 SUBQ 01/29 1259 0823 Methocarbamol 500 MG Q8H 10/31 1200 AC 11/01 PO 01/29 1159 1124 Insulin Human Lispro 0 AC HS 10/31 1130 AC 11/01 SUBQ 01/29 1129 0823 Hydrocodone Bitart/ 1 TAB Q4H PRN PRN 10/31 1115 AC Acetaminophen PO 11/05 1114 Hydrocodone Bitart/ 1 TAB Q4H PRN PRN 10/31 1115 AC 11/01 Acetaminophen PO 11/05 1114 0830 Hydromorphone HCl 1 MG Q4H PRN PRN 10/31 1115 AC 11/01 IV 11/05 1114 1129 Acetaminophen 650 MG Q4H PRN PRN 10/31 1045 AC PO 01/29 1044 Albuterol/Ipratropium 3 ML RTQ4H PRN PRN 10/31 1045 AC NEB 01/29 1044 Dextrose/Water 125 ML ASDIR PRN 10/31 1045 CKD IV 01/29 1044 Dextrose/Water 250 ML ASDIR PRN 10/31 1045 CKD IV 01/29 1044 Docusate Sodium 100 MG DAILY PRN PRN 10/31 1045 AC 11/01 PO 01/29 1044 0830 Glucagon 1 MG ASDIR PRN 10/31 1045 AC IM 01/29 1044 Hydralazine HCl 10 MG Q6H PRN PRN 10/31 1045 AC 11/01 IV 01/29 1044 1030 Ondansetron HCl 4 MG Q4H PRN PRN 10/31 1045 AC 10/31 IV 01/29 1044 1639 Dextrose/Lactated 1,000 ML .Q6H40M 10/31 0645 DC Ringer's IV 10/31 1324 Dextrose/Water 1,000 ML ASDIR 10/31 0600 DC IV 01/29 0559 Insulin Human Regular 100 ML ASDIR 10/31 0600 DC IV 01/29 0559 Magnesium Sulfate 50 ML ASDIR PRN 10/31 0600 DC IV 01/29 0559 Magnesium Sulfate 100 ML ASDIR PRN 10/31 0600 DC IV 01/29 0559 Potassium Chloride 20 MEQ ASDIR PRN 10/31 0600 DC 11/01 PO 01/29 0559 1030 Potassium Chloride 20 MEQ ASDIR PRN 10/31 0600 DC FEED-TUBE 01/29 0559 Potassium Chloride 50 ML ASDIR PRN 10/31 0600 DC IV 01/29 0559 Potassium Phosphate 15 MM ASDIR PRN 10/31 0600 DC Sodium Chloride 250 ML IV 01/29 0559 Sodium Chloride 1,000 ML Q5H 10/31 0430 DC 11/01 IV 11/01 0424 0030 Results: labs reviewed, vital signs reviewed, vital signs stable, current med profile rev'd Diagnosis, Assessment Plan Plan discussed with: patient Free Text DxA P Notes Free text DxA P notes: A: Possible vertebral diskitis DM2 Bipolar Left BKA P: Hold off on abx pending IR aspiration ESR/CRP Further recs based on clinical course Pt seen and examined with Dr Ji MDM was done entirely by Dr Ji at 1215 at 1312 RPT #:[id number] END OF REPORT [facility] 2024-11-01 11:51:00 [facility] ([facility]) Neurosurgical Progress Note REPORT#:[id number] REPORT STATUS: Signed REPORT INITIALIZATION DATE:11/01/24 TIME: 1151 PATIENT: MARY GRACE CRAWLEY UNIT #: [id number] ROOM/BED: [place] [address] : 76 AGE: 49 SEX: F ATTEND: Claudine Davis MD ADM AUTHOR: Aminta Foster INSURANCE POLICY CLERK REPT SERVICE DT/TIME: 11/01/24 1151 * ALL edits or amendments must be made on the electronic/computer document * Aminta Foster 11/01/24 1151: Subjective Chief complaint: back pain- possibel lumbar discitis HPI: 49 year old female with past medical hx of DM type II, Bipolar, Anxiety, depression presents to [facility] with back pain that started yesterday morning when she woke up. Pt denies any trauma, denies lifting heavy objects. Her CT lspine report suspected possible lumbar discitis and she was transferred to [facility] for neurosurgical intervention. Upon assessment, pt is standing next to bed, she states standing helps with her back pain. She describes the pain in the low back, just above the hips bilaterally and radiates to the back of bilateral thighs. Pt reports having bronchitis reently, but desies fever chills. Objective General VS/I O: Vital Signs Date Temp Pulse Resp B/P B/P Mean Pulse Ox FiO2 10/31-11/01 36.7-36.8 96-113 10-37 119-163/58-73 0.0-100 93-99 24 hour I O ending at 0700: 11/01 0700 10/31 1900 Intake Total Output Total Balance Number Voids 1 PATIENT WEIGHT: Weight (lb): Weight (oz): Weight (kg): 90.400 Medications: Active Meds + DC'd Last 24 Hrs Potassium Phosphate (POTASSIUM PHOSPHATE) 15 MM ONCE ONE IV Sodium Chloride (SODIUM CHLORIDE 0.9%) 250 ML Potassium Chloride (POTASSIUM CHLORIDE 20MEQ TAB.ER) 20 MEQ Q2H PO Insulin Glargine (Semglee) 25 UNIT DAILY SUBQ (DC) Insulin Glargine (Semglee) 25 UNIT DAILY SUBQ Gabapentin (NEURONTIN) 100 MG BID PO Insulin Human Lispro (Admelog) 8 UNIT AC SUBQ Methocarbamol (ROBAXIN) 500 MG Q8H PO Insulin Human Lispro (Admelog) 0 AC HS SUBQ Hydrocodone Bitart/Acetaminophen (NORCO 5/325) 1 TAB Q4H PRN PRN PO Hydrocodone Bitart/Acetaminophen (NORCO 10/325) 1 TAB Q4H PRN PRN PO Hydromorphone HCl (DILAUDID) 1 MG Q4H PRN PRN IV Acetaminophen (TYLENOL) 650 MG Q4H PRN PRN PO Albuterol/Ipratropium (DUONEB) 3 ML RTQ4H PRN PRN NEB Dextrose/Water (DEXTROSE 10% IN WATER) 125 ML ASDIR PRN IV (CKD) Dextrose/Water (DEXTROSE 10% IN WATER) 250 ML ASDIR PRN IV (CKD) Docusate Sodium (COLACE) 100 MG DAILY PRN PRN PO Glucagon (GLUCAGON) 1 MG ASDIR PRN IM Hydralazine HCl (APRESOLINE) 10 MG Q6H PRN PRN IV Ondansetron HCl (ZOFRAN) 4 MG Q4H PRN PRN IV Dextrose/Lactated Ringer's (Dextrose 5% / Lactated Ringers) 1,000 ML .Q6H40M IV (DC) Dextrose/Water (Dextrose 10% 1,000 mL) 1,000 ML ASDIR IV (DC) Insulin Human Regular (MYXREDLIN 100 UNITS/NS 100ML) 100 ML ASDIR IV (DC ) Magnesium Sulfate (MAGNESIUM SULFATE 2GM/SWFI 50ML) 50 ML ASDIR PRN IV ( DC) Magnesium Sulfate (MAGNESIUM SULFATE 4GM/SWFI 100ML) 100 ML ASDIR PRN IV (DC) Potassium Chloride (POTASSIUM CHLORIDE 20MEQ TAB.ER) 20 MEQ ASDIR PRN PO (DC) Potassium Chloride (K-MOSES 20 MEQ PACKET) 20 MEQ ASDIR PRN FEED-TUBE (DC) Potassium Chloride (KCL 10MEQ/SWFI 50ML) 50 ML ASDIR PRN IV (DC) Potassium Phosphate (POTASSIUM PHOSPHATE) 15 MM ASDIR PRN IV (DC) Sodium Chloride (SODIUM CHLORIDE 0.9%) 250 ML Sodium Chloride (SODIUM CHLORIDE 0.9%) 1,000 ML Q5H IV (DC) Physical Exam General appearance: alert, awake Head/Eyes: EOMI, normocephalic Neck: no JVD, no lymphadenopathy Cardiovascular: normal capillary refill, regular rate rhythm Respiratory: no distress, aerating well Genitourinary: deferred Neuro/OYSTER TONGER: alert, oriented X 3, no motor deficits, no sensory deficits Results Findings/Data: Laboratory Tests 11/01 11/01 11/01 11/01 10/31 1107 0910 0504 0503 1851 Chemistry Sodium (134 - 147 mEq/L) 135 135 Potassium (3.4 - 5.0 mEq/L) 3.0 L 3.3 L Chloride (100 - 108 mEq/L) 109 H 106 Carbon Dioxide (21 - 33 mEq/l) 17 L 17 L Anion Gap (0 - 20) 12 15 BUN (7 - 25 mg/dL) 7 9 Creatinine (0.6 - 1.3 mg/dL) 0.8 0.9 Glomerular Filtr Rate (95 - 105) 90.8 L 78.9 L Glucose (77 - 141 mg/dL) 194 H 234 H POC Glucose (70 - 110 MG/DL) 172 H 93 Calcium (8.0 - 10.5 mg/dL) 8.2 8.7 Phosphorus (2.5 - 4.9 MG/DL) 1.8 L 1.9 L Magnesium (1.6 - 2.6 mg/dL) 1.96 2.06 Total Bilirubin (0.0 - 1.0 mg/dL) 0.50 AST (8 - 34 IUnit/L) 19 ALT (10 - 49 IUnit/L) 20 Total Alk Phosphatase (20 - 125 91 IUnit/L) C-Reactive Protein (<5.0 MG/L) < 5.0 Total Protein (5.7 - 8.2 g/dL) 8.0 Albumin (3.4 - 5.0 g/dL) 3.70 3.90 Triglycerides (40 - 150 mg/dL) 428 H Cholesterol (<200 mg/dL) 250 H LDL Cholesterol [place] (0 - 100 162.0 H mg/dL) HDL Cholesterol (40 - 60 MG/DL) 34.4 L Cholesterol/HDL Ratio (3.27 - 4.44 7.27 H RATIO) 10/31 10/31 1644 1329 Chemistry POC Glucose (70 - 110 MG/DL) 184 H 172 H Laboratory Tests 11/01 0504 Hematology WBC (4.5 - 11.0 x10 3/uL) 7.6 RBC (3.54 - 5.02 x10 6/uL) 5.32 H Hgb (11.0 - 15.0 g/dL) 14.2 Hct (33.0 - 45.0 %) 42.2 MCV (81.0 - 99.0 fL) 79.3 L MCH (27.0 - 33.0 pg) 26.7 L MCHC (33.0 - 37.0 g/dL) 33.6 RDW (11.5 - 14.5 %) 15.7 H Plt Count (150 - 400 x10 3/uL) 337 MPV (7.0 - 9.0 fL) 8.9 Neut % (Auto) (56.0 - 77.0 %) 52.5 L Lymph % (Auto) (14.0 - 32.0 %) 30.1 [place] % (Auto) (4.8 - 9.0 %) 5.9 Eos % (Auto) (0.3 - 3.7 %) 10.3 H Baso % (Auto) (0.0 - 2.0 %) 0.9 Neut # (Auto) (2.0 - 7.6 x10 3/uL) 3.98 Lymph # (Auto) (1.0 - 3.8 x10 3/uL) 2.28 [place] # (Auto) (0.1 - 0.8 x10 3/uL) 0.45 Eos # (Auto) (0.0 - 0.2 x10 3/uL) 0.78 H Baso # (Auto) (0.0 - 0.2 x10 3/uL) 0.07 Abs Immat Gran (auto) (0.00 - 0.03 x10 3/uL) 0.02 Immature Gran % (0.0 - 2.0 %) 0.3 Nucleated RBC % (0 - 0 %) 0.0 Nucleated RBCs # (Man) (0.0 - 0.1 x10 3/uL) 0.00 ESR Westergren (0 - 20 mm/hr) 13 Diagnosis, Assessment Plan Problem List/A P: 1. HX OF DEPRESSION 2. HX OF BIPOLAR 3. HX OF ANXIETY 4. Discitis Free Text A P: Patient examined with, imaging reviewed with and plan of care formulated by Dr. Kan 49 year old female with past medical hx of DM type II m (HGBA1c 10.2), Bipolar, Anxiety, depression presents to [facility] with back pain that started yesterday morning when she woke up. Report from OSH- small 5mm gas bubble superior S1 left canal paramedian corner. (no disc available). WBC 10.2, T 98.6. SED 13, CRP <5.0 11/01: Pain 12/29- improved w/pain medication. Still awaits MRI Lspine no emergent neurosurgical intervention MRI L-spine w w/out contrast pending pain control neuro checks 4 hr I.D. consulted (discitis) Endocrine consulted (Hgb A1c 10.2) will f/u when MRI completed JAKOB distinctive service time: 18 minutes. JAKOB and Physician shared Service Time: 10 minutes discussing diagnosis, exam and plan of care. Srini Kan 11/01/24 2003: Diagnosis, Assessment Plan Free Text A P: Agree with above, patient's mpain is improved todfay. As mentioned before, MRI today reveals degenerative changes with no evidence of any infection/discitis or osteomyelitis. She has minimal disc bulge at L4-5 level with no nerve root compromise at all. I'd recommend cancelling needle biopsy and start PT/OT and pain management. Will standby, please call prn. at 2007 at 1929 RPT #:[id number] END OF REPORT [facility] 2024-11-01 10:04:00 [facility] ([facility]) Hospitalist Progress Note REPORT#:[id number] REPORT STATUS: Signed REPORT INITIALIZATION DATE:11/01/24 TIME: 1004 PATIENT: MARY GRACE CRAWLEY UNIT #: [id number] ROOM/BED: [place] [address] : 76 AGE: 49 SEX: F ATTEND: Claudine Davis MD ADM AUTHOR: Keshawn Garcia INSURANCE POLICY CLERK REPT SERVICE DT/TIME: 11/01/24 1004 * ALL edits or amendments must be made on the electronic/computer document * Subjective Chief complaint: She is doing better. Her pain is controlled with meds. No CP, fever, chills. No N/v/d. BP and HR stable. Review of Systems Constitutional: Reports: fatigue, generalized weakness. Eyes: Denies: visual loss/blurred, diplopia, eye pain. Respiratory: Denies: hemoptysis, pleurisy, pleuritic pain, productive cough (sputum). Cardiovascular: Denies: chest pain, palpitations. GI: Denies: anorexia, dysphagia, hematemesis, hematochezia, melena. : Denies: flank pain, hematuria, nocturia, . Musculoskeletal: Reports: extremity pain, joint pain. Heme: Denies: bleeding, bruising, petechiae. Neuro: Denies: change in LOC, dizziness, headache, numbness, syncope. Objective General VS/I O: Vital Signs: Date Time Temp Pulse Resp B/P B/P Pulse O2 O2 Flow FiO2 Mean Ox Delivery Rate 11/01 0757 36.8 105 21 133/66 0.0 98 Room air 11/01 0421 109 11 139/65 0.0 97 Room air 10/31 2336 107 25 163/68 0.0 99 Room air 10/31 1853 36.7 96 10 145/72 0.0 93 Room air 10/31 1703 36.8 10/31 1700 106 37 97 10/31 1600 112 15 99 10/31 1500 113 27 98 10/31 1400 107 25 147/72 100 98 10/31 1336 108 22 133/73 95 98 10/31 1200 96 119/58 84 97 10/31 1024 114 179/86 120 96 24 hour I O ending at 0700: 11/01 0700 10/31 1900 Intake Total Output Total Balance Number Voids 1 PATIENT WEIGHT: Weight (lb): Weight (oz): Weight (kg): 90.400 Medications: Active Meds + DC'd Last 24 Hrs Insulin Glargine (Semglee) 25 UNIT DAILY SUBQ Insulin Glargine (Semglee) 15 UNIT DAILY SUBQ (CAN) Gabapentin (NEURONTIN) 100 MG BID PO Insulin Human Lispro (Admelog) 8 UNIT AC SUBQ Methocarbamol (ROBAXIN) 500 MG Q8H PO Insulin Human Lispro (Admelog) 0 AC HS SUBQ Hydrocodone Bitart/Acetaminophen (NORCO 5/325) 1 TAB Q4H PRN PRN PO Hydrocodone Bitart/Acetaminophen (NORCO 10/325) 1 TAB Q4H PRN PRN PO Hydromorphone HCl (DILAUDID) 1 MG Q4H PRN PRN IV Acetaminophen (TYLENOL) 650 MG Q4H PRN PRN PO Albuterol/Ipratropium (DUONEB) 3 ML RTQ4H PRN PRN NEB Dextrose/Water (DEXTROSE 10% IN WATER) 125 ML ASDIR PRN IV (CKD) Dextrose/Water (DEXTROSE 10% IN WATER) 250 ML ASDIR PRN IV (CKD) Docusate Sodium (COLACE) 100 MG DAILY PRN PRN PO Glucagon (GLUCAGON) 1 MG ASDIR PRN IM Hydralazine HCl (APRESOLINE) 10 MG Q6H PRN PRN IV Ondansetron HCl (ZOFRAN) 4 MG Q4H PRN PRN IV Fentanyl Citrate (SUBLIMAZE) 75 MCG Q4H PRN PRN IV (DC) Dextrose/Lactated Ringer's (Dextrose 5% / Lactated Ringers) 1,000 ML .Q6H40M IV (DC) Dextrose/Water (Dextrose 10% 1,000 mL) 1,000 ML ASDIR IV Insulin Human Regular (MYXREDLIN 100 UNITS/NS 100ML) 100 ML ASDIR IV ( CKD) Magnesium Sulfate (MAGNESIUM SULFATE 2GM/SWFI 50ML) 50 ML ASDIR PRN IV Magnesium Sulfate (MAGNESIUM SULFATE 4GM/SWFI 100ML) 100 ML ASDIR PRN IV Potassium Chloride (POTASSIUM CHLORIDE 20MEQ TAB.ER) 20 MEQ ASDIR PRN PO Potassium Chloride (K-MOSES 20 MEQ PACKET) 20 MEQ ASDIR PRN FEED-TUBE Potassium Chloride (KCL 10MEQ/SWFI 50ML) 50 ML ASDIR PRN IV Potassium Phosphate (POTASSIUM PHOSPHATE) 15 MM ASDIR PRN IV Sodium Chloride (SODIUM CHLORIDE 0.9%) 250 ML Sodium Chloride (SODIUM CHLORIDE 0.9%) 1,000 ML Q5H IV (DC) Dietitian nutrition assessment The data set between the solid lines has been imported from the dietitian's assessment. BMI Calculated: 27.0 Nutrition related diagnosis: Nutrition diagnosis details: Nutrition problem: Nutrition etiology: Nutrition signs and symptoms: Nutrition prescription: Dietitian name: Assessment completed: Physical Exam General appearance: alert, awake, oriented Head/Eyes: atraumatic, normocephalic, PERRLA Neck: supple/no meningismus, no bruit/NL carotids, no JVD Cardiovascular: normal capillary refill, normal heart sounds, regular rate rhythm Respiratory: aerating well, symmetric expansion, no distress Abdomen: non-tender, normal bowel sounds, soft Genitourinary: no bladder distention, no flank pain Extremities: no calf tenderness, no clubbing, no cyanosis Musculoskeletal: no CVA tenderness, no muscle spasm Neuro/OYSTER TONGER: alert, oriented X 3, CNII-XII intact Results Findings/Data: Laboratory Tests 11/01 11/01 10/31 10/31 10/31 0504 0503 1851 1644 1329 Chemistry Sodium (134 - 147 mEq/L) 135 Potassium (3.4 - 5.0 mEq/L) 3.3 L Chloride (100 - 108 mEq/L) 106 Carbon Dioxide (21 - 33 mEq/l) 17 L Anion Gap (0 - 20) 15 BUN (7 - 25 mg/dL) 9 Creatinine (0.6 - 1.3 mg/dL) 0.9 Glomerular Filtr Rate (95 - 105) 78.9 L Glucose (77 - 141 mg/dL) 234 H POC Glucose (70 - 110 MG/DL) 93 184 H 172 H Calcium (8.0 - 10.5 mg/dL) 8.7 Phosphorus (2.5 - 4.9 MG/DL) 1.9 L Magnesium (1.6 - 2.6 mg/dL) 2.06 Total Bilirubin (0.0 - 1.0 mg/dL) 0.50 AST (8 - 34 IUnit/L) 19 ALT (10 - 49 IUnit/L) 20 Total Alk Phosphatase (20 - 125 91 IUnit/L) C-Reactive Protein (<5.0 MG/L) < 5.0 Total Protein (5.7 - 8.2 g/dL) 8.0 Albumin (3.4 - 5.0 g/dL) 3.90 Triglycerides (40 - 150 mg/dL) 428 H Cholesterol (<200 mg/dL) 250 H LDL Cholesterol Measurd (0 - 100 162.0 H mg/dL) HDL Cholesterol (40 - 60 MG/DL) 34.4 L Cholesterol/HDL Ratio (3.27 - 4.44 7.27 H RATIO) 10/31 1125 Chemistry POC Glucose (70 - 110 MG/DL) 207 H Laboratory Tests 11/01 0504 Hematology WBC (4.5 - 11.0 x10 3/uL) 7.6 RBC (3.54 - 5.02 x10 6/uL) 5.32 H Hgb (11.0 - 15.0 g/dL) 14.2 Hct (33.0 - 45.0 %) 42.2 MCV (81.0 - 99.0 fL) 79.3 L MCH (27.0 - 33.0 pg) 26.7 L MCHC (33.0 - 37.0 g/dL) 33.6 RDW (11.5 - 14.5 %) 15.7 H Plt Count (150 - 400 x10 3/uL) 337 MPV (7.0 - 9.0 fL) 8.9 Neut % (Auto) (56.0 - 77.0 %) 52.5 L Lymph % (Auto) (14.0 - 32.0 %) 30.1 [place] % (Auto) (4.8 - 9.0 %) 5.9 Eos % (Auto) (0.3 - 3.7 %) 10.3 H Baso % (Auto) (0.0 - 2.0 %) 0.9 Neut # (Auto) (2.0 - 7.6 x10 3/uL) 3.98 Lymph # (Auto) (1.0 - 3.8 x10 3/uL) 2.28 [place] # (Auto) (0.1 - 0.8 x10 3/uL) 0.45 Eos # (Auto) (0.0 - 0.2 x10 3/uL) 0.78 H Baso # (Auto) (0.0 - 0.2 x10 3/uL) 0.07 Abs Immat Gran (auto) (0.00 - 0.03 x10 3/uL) 0.02 Immature Gran % (0.0 - 2.0 %) 0.3 Nucleated RBC % (0 - 0 %) 0.0 Nucleated RBCs # (Man) (0.0 - 0.1 x10 3/uL) 0.00 ESR Westergren (0 - 20 mm/hr) 13 Results: labs reviewed, vital signs reviewed, vital signs stable, current med profile rev'd Treatment Prophylaxis Treatment Prophylaxis Oxygen: room air Diagnosis, Assessment Plan Problem List/A P: 1. DKA (diabetic ketoacidosis) 2. Discitis 3. HYPOKALEMIA 4. HX OF DEPRESSION 5. HX OF ANXIETY 6. HX OF BIPOLAR 7. Hypomagnesemia 8. Hypophosphatemia Orders: Procedure Date/time Status MAGNESIUM 11/01 0504 Complete LIPID PROFILE (CORONARY RISK) 11/01 0504 Complete Code status: full code Plan discussed with: patient, admitting physician, consultants, nurse Free Text DxA P Notes Free text DxA P notes: Plan: IMCU. No emergent neurosurgical intervention. will order MRI L-spine w w/out contrast. Will replace K, phos and mag. Continue Lantus 15 unit and ISS. Diabetic diet. Pain meds. Antiemetics. Follow labs and replace as needed. continue home meds. ID for discitis and ABX. PT and OT Monitor. at 1006 at 1504 RPT #:[id number] END OF REPORT [facility] 2024-10-31 12:19:00 [facility] ([facility]) Endocrinology Consultation REPORT#:[id number] REPORT STATUS: Signed REPORT INITIALIZATION DATE:10/31/24 TIME: 1219 PATIENT: MARY GRACE CRAWLEY UNIT #: [id number] ROOM/BED: [place] [address] : 76 AGE: 49 SEX: F ATTEND: Claudine Davis MD ADM AUTHOR: Ovidio Anderson REPT SERVICE DT/TIME: 10/31/24 1200 * ALL edits or amendments must be made on the electronic/computer document * History of Present Illness Requesting Clinician: Keshawn Garcia NP Reason for consult: DKA Chief complaint: Discitis DKa HPI: Christiano Molina 49-year-old woman with medical history of diabetes type 2, 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 Presented to [facility] with back pain found to have discitis as well as elevated anion gap with acidosis thought to be in DKA. Started on insulin drip transferred here for neurosurgery evaluation. Consulted for DKA. Found to be in DKA at [facility]. History of DM II, uses Omnipod pump, ran out of her pump supplies and insulin. DKA protocol stopped. HgbA1c History - Adult longitudinal Past medical history: Reports: Depression/mood disorder, Diabetes mellitus. Additional medical history: ANXIETY, Bipolar Past surgical history: Reports: Amputation (Lt bka). Alcohol use: Denies EtOH use Drug use: Denies recreational drugs Smoking status for patients 13 years old or older: Former Smoker Other social history: Good social support (lives w/mom bf) Allergies: Coded Allergies: No Known Allergies (02/28/24) Occupation: disabled Ambulatory status: Independent (L BKA) Review of Systems Constitutional: Denies: fever. Skin: Denies: rash. Eyes: Denies: visual loss/blurred. ENT: Denies: throat pain. Respiratory: Denies: SOB. Cardiovascular: Denies: chest pain. GI: Denies: nausea, vomiting. : Denies: dysuria. Musculoskeletal: Denies: extremity pain. Endocrine: Denies: cold intolerance, heat intolerance, polydipsia, polyphagia, polyuria, weight gain, weight loss, other. Neuro: Denies: confusion, dizziness. Objective VS/I O: Last Documented: Result Date Time Pulse Ox 96 10/31 1024 B/P 179/86 10/31 1024 B/P Mean 120 10/31 1024 Pulse 114 10/31 1024 Resp 21 10/31 0415 O2 Delivery Room air 10/31 321 Temp 98.6 10/31 321 24 hour I O ending at 0700: 10/31 0700 10/30 1900 Intake Total Output Total Balance Patient 90.4 kg Weight Weight Bed scale Measurement Method PATIENT WEIGHT: Weight (lb): Weight (oz): Weight (kg): 90.400 General appearance: alert, awake, oriented Head/Eyes: atraumatic, normocephalic ENT: normal ear left, normal ear right, normal nose Neck: supple Cardiovascular: regular rate rhythm Respiratory: no distress Abdomen: soft Genitourinary: not indicated Extremities: warm Neuro/OYSTER TONGER: alert, oriented X 3, normal speech Skin: warm Results Findings/Data: Laboratory Tests: 10/31 10/31 10/31 10/31 10/31 1125 0830 0631 0507 0329 Chemistry POC Glucose (70 - 110 MG/DL) 207 H 179 H 156 H Hemoglobin A1c (4.8 - 6.0 %A1C) 10.2 H Phosphorus (2.5 - 4.9 MG/DL) 2.2 L Magnesium (1.6 - 2.6 mg/dL) 2.00 10/319 0329 0326 0317 Blood Gas Puncture Site iv ABG Hematocrit (33 - 45 %) 45 ABG Hemoglobin (11.0 - 15.0 G/DL) 15.3 H VBG pH (7.33 - 7.45) 7.265 L VBG pCO2 (43 - 47 mmHg) 42.4 L VBG pO2 (10 - 50 mmHG) 15.4 VBG HCO3 (22 - 27 MMOL/L) 19.3 L POC VBG Total CO2 (22 - 29) 20.6 L VBG O2 Saturation (60 - 80 %) 16.1 L VBG Base Excess (0 - +/ MMOL/L) -7.7 L VBG Temperature (F) 98.6 Sodium (134 - 147 mmol/L) 140 Potassium (3.4 - 5.0 mmol/L) 4.2 Chloride (100 - 108 mmol/L) 110 H Ionized Calcium (1.12 - 1.32 MMOL/L) 1.33 H Lactic Acid (0.9 - 1.7 mmol/l) 0.9 O2 Delivery Device Room Air Chemistry Sodium (134 - 147 mEq/L) 138 Potassium (3.4 - 5.0 mEq/L) 3.3 L Chloride (100 - 108 mEq/L) 107 Carbon Dioxide (21 - 33 mEq/l) 19 L Anion Gap (0 - 20) 15 BUN (7 - 25 mg/dL) 12 Creatinine (0.6 - 1.3 mg/dL) 1.1 POC Creatinine (0.6 - 1.3 mg/dL) 0.8 Glomerular Filtr Rate (95 - 105) 62.0 L Glucose (77 - 141 mg/dL) 151 H POC Glucose (70 - 110 MG/DL) 184 H POC Glucose (mg/dL) (70 - 110 MG/DL) 163 H Hemoglobin A1c (4.8 - 6.0 %A1C) 10.2 H Calcium (8.0 - 10.5 mg/dL) 8.6 Total Bilirubin (0.0 - 1.0 mg/dL) 0.40 AST (8 - 34 IUnit/L) 17 ALT (10 - 49 IUnit/L) 19 Total Alk Phosphatase (20 - 125 IUnit/L) 71 Total Protein (5.7 - 8.2 g/dL) 7.5 Albumin (3.4 - 5.0 g/dL) 3.70 Hematology WBC (4.5 - 11.0 x10 3/uL) 10.2 RBC (3.54 - 5.02 x10 6/uL) 5.46 H Hgb (11.0 - 15.0 g/dL) 14.8 Hct (33.0 - 45.0 %) 43.5 MCV (81.0 - 99.0 fL) 79.7 L MCH (27.0 - 33.0 pg) 27.1 MCHC (33.0 - 37.0 g/dL) 34.0 RDW (11.5 - 14.5 %) 15.4 H Plt Count (150 - 400 x10 3/uL) 339 MPV (7.0 - 9.0 fL) 8.3 Neut % (Auto) (56.0 - 77.0 %) 58.6 Lymph % (Auto) (14.0 - 32.0 %) 30.2 [place] % (Auto) (4.8 - 9.0 %) 5.3 Eos % (Auto) (0.3 - 3.7 %) 5.0 H Baso % (Auto) (0.0 - 2.0 %) 0.6 Neut # (Auto) (2.0 - 7.6 x10 3/uL) 5.94 Lymph # (Auto) (1.0 - 3.8 x10 3/uL) 3.07 [place] # (Auto) (0.1 - 0.8 x10 3/uL) 0.54 Eos # (Auto) (0.0 - 0.2 x10 3/uL) 0.51 H Baso # (Auto) (0.0 - 0.2 x10 3/uL) 0.06 Abs Immat Gran (auto) (0.00 - 0.03 0.03 x10 3/uL) Immature Gran % (0.0 - 2.0 %) 0.3 Nucleated RBC % (0 - 0 %) 0.0 Nucleated RBCs # (Man) (0.0 - 0.1 0.00 x10 3/uL) Diagnosis, Assessment Plan Free Text A P: 1.DM II in DKA DKA resolved start Lantus start Humalog monitor glucose diabetic diet diabetic teaching DC Plan: Lantus and Humalog; continue with insulin pump when supplies available. 2. Discitis MRI L-spine w w/out contrast no emergent neurosurgical intervention ID and neurosurgery following Thank you Keshawn Garcia INSURANCE POLICY CLERK for the kind consult. at 1400 at 1103 RPT #:[id number] END OF REPORT [facility] 2024-10-31 11:12:00 [facility] ([facility]) Neurosurgical Consultation REPORT#:[id number] REPORT STATUS: Signed REPORT INITIALIZATION DATE:10/31/24 TIME: 1112 PATIENT: MARY GRACE CRAWLEY UNIT #: [id number] ROOM/BED: [place] [address] : 76 AGE: 49 SEX: F ATTEND: Claudine Davis MD ADM AUTHOR: Aminta Foster NP REPT SERVICE DT/TIME: 10/31/24 1112 * ALL edits or amendments must be made on the electronic/computer document * Aminta Foster 10/31/24 1112: History of Present Illness Requesting clinician: Carol Beyer NP Reason for consult: possible lumbar discitis Chief complaint: back pain- possibel lumbar discitis HPI: 49 year old female with past medical hx of DM type II, Bipolar, Anxiety, depression presents to [facility] with back pain that started yesterday morning when she woke up. Pt denies any trauma, denies lifting heavy objects. Her CT lspine report suspected possible lumbar discitis and she was transferred to [facility] for neurosurgical intervention. Upon assessment, pt is standing next to bed, she states standing helps with her back pain. She describes the pain in the low back, just above the hips bilaterally and radiates to the back of bilateral thighs. Pt reports having bronchitis reently, but desies fever chills. History - Adult longitudinal Past medical history: Reports: Depression/mood disorder, Diabetes mellitus. Additional medical history: ANXIETY, Bipolar Past surgical history: Reports: Amputation (Lt bka). Alcohol use: Denies EtOH use Drug use: Denies recreational drugs Smoking status for patients 13 years old or older: Former Smoker Other social history: Good social support (lives w/mom bf) Medications: Home Medications: Medication Dose/Rte/Freq Days Qty Entered Last Max Daily Dose Reviewed ONDANSETRON ODT 4 MG PO 15 02/28/24 (ZOFRAN ODT) Q6H PRN PRN 1826 Strength: 4 MG TAB.RAPDIS NAUSEA/VOMITING Current Hospital Medications: Autonomic Drugs Sig/Drake Start time Last Medication Dose Route Stop Time Status Admin Methocarbamol 500 MG Q8H 10/31 1200 AC (ROBAXIN) PO 01/29 1159 Albuterol/Ipratropium 3 ML RTQ4H PRN PRN 10/31 1045 AC (DUONEB) NEB 01/29 1044 Cardiovascular Drugs Sig/Drake Start time Last Medication Dose Route Stop Time Status Admin Hydralazine HCl 10 MG Q6H PRN PRN 10/31 1045 AC (APRESOLINE) IV 01/29 1044 Central Nervous System Agents Sig/Drake Start time Last Medication Dose Route Stop Time Status Admin Gabapentin 100 MG BID 10/31 2100 AC (NEURONTIN) PO 01/29 2059 Hydrocodone Bitart/ 1 TAB Q4H PRN PRN 10/31 1115 AC Acetaminophen PO 11/05 1114 (NORCO 5/325) Hydrocodone Bitart/ 1 TAB Q4H PRN PRN 10/31 1115 AC Acetaminophen PO 11/05 1114 (NORCO 10/325) Hydromorphone HCl 1 MG Q4H PRN PRN 10/31 1115 AC (DILAUDID) IV 11/05 1114 Acetaminophen 650 MG Q4H PRN PRN 10/31 1045 AC (TYLENOL) PO 01/29 1044 Fentanyl Citrate 75 MCG Q4H PRN PRN 10/31 0945 DC 10/31 (SUBLIMAZE) IV 11/05 0944 1021 Magnesium Sulfate 50 ML ASDIR PRN 10/31 0600 AC (MAGNESIUM SULFATE IV 01/29 0559 2GM/SWFI 50ML) Magnesium Sulfate 100 ML ASDIR PRN 10/31 0600 AC (MAGNESIUM SULFATE IV 01/29 0559 4GM/SWFI 100ML) Fentanyl Citrate 50 MCG ONCE ONE 10/31 0530 DC 10/31 (SUBLIMAZE) IV 10/31 0531 0526 Morphine Sulfate 4 MG NOW ONE 10/31 0445 DC 10/31 (morphine SULFATE) IV 10/31 0446 0452 Magnesium Sulfate 50 ML ASDIR PRN 10/31 0345 DC (MAGNESIUM SULFATE IV 01/29 0344 2GM/SWFI 50ML) Magnesium Sulfate 100 ML ASDIR PRN 10/31 0345 DC (MAGNESIUM SULFATE IV 01/29 0344 4GM/SWFI 100ML) Morphine Sulfate 4 MG X1ED STA 10/31 0335 DC (morphine SULFATE) IV 10/31 0336 Electrolytic, Caloric, And Terry Sig/Drake Start time Last Medication Dose Route Stop Time Status Admin Dextrose/Water 125 ML ASDIR PRN 10/31 1045 CKD (DEXTROSE 10% IN IV 01/29 104 WATER) Dextrose/Water 250 ML ASDIR PRN 10/31 1045 CKD (DEXTROSE 10% IN IV 01/29 1044 WATER) Dextrose/Lactated 1,000 ML .Q6H40M 10/31 0645 AC Ringer's IV 10/31 1324 (Dextrose 5% / Lactated Ringers) Potassium Chloride 10 MEQ .Q6H40M 10/31 0615 CAN (KCl) IV 01/29 0614 Dextrose/Lactated 1,000 ML Ringer's (Dextrose 5% / Lactated Ringers) Dextrose/Water 1,000 ML ASDIR 10/31 06 AC (Dextrose 10% 1,000 IV 01/29 0559 mL) Potassium Chloride 20 MEQ ASDIR PRN 10/31 06 AC (POTASSIUM CHLORIDE PO 01/29 0559 20MEQ TAB.ER) Potassium Chloride 20 MEQ ASDIR PRN 10/31 06 AC (K-MOSES 20 MEQ PACKET) FEED-TUBE 01/29 0559 Potassium Chloride 50 ML ASDIR PRN 10/31 06 AC (KCL 10MEQ/SWFI 50ML) IV 01/29 05 Potassium Phosphate 15 MM ASDIR PRN 10/31 06 AC (POTASSIUM PHOSPHATE) IV 01/29 0559 Sodium Chloride 250 ML (SODIUM CHLORIDE 0.9%) Dextrose/Water 1,000 ML ASDIR PRN 10/31 043 DC (Dextrose 10% 1,000 IV 11/01 0424 mL) Sodium Chloride 1,000 ML Q5H 10/31 0430 AC (SODIUM CHLORIDE IV 11/01 0424 0.9%) Dextrose/Water 1,000 ML ASDIR 10/31 0345 DC (Dextrose 10% 1,000 IV 01/29 0344 mL) Potassium Chloride 20 MEQ ASDIR PRN 10/31 0345 DC (POTASSIUM CHLORIDE PO 01/29 0344 20MEQ TAB.ER) Potassium Chloride 20 MEQ ASDIR PRN 10/31 0345 DC (K-MOSES 20 MEQ PACKET) FEED-TUBE 01/29 034 Potassium Phosphate 15 MM ASDIR PRN 10/31 0345 DC (POTASSIUM PHOSPHATE) IV 01/29 034 Sodium Chloride 250 ML (SODIUM CHLORIDE 0.9%) Gastrointestinal Drugs Sig/Drake Start time Last Medication Dose Route Stop Time Status Admin Docusate Sodium 100 MG DAILY PRN PRN 10/31 1045 AC (COLACE) PO 01/29 1044 Ondansetron HCl 4 MG Q4H PRN PRN 10/31 1045 AC (ZOFRAN) IV 01/29 1044 Hormones And Synthetic Substit Sig/Drake Start time Last Medication Dose Route Stop Time Status Admin Insulin Glargine 15 UNIT DAILY 11/01 0900 AC (Semglee) SUBQ 01/30 0859 Insulin Human Lispro 0 AC HS 10/31 1130 AC (Admelog) SUBQ 01/29 1129 Glucagon 1 MG ASDIR PRN 10/31 1045 AC (GLUCAGON) IM 01/29 1044 Insulin Human Regular 100 ML ASDIR 10/31 0600 CKD (MYXREDLIN 100 UNITS/ IV 01/29 0559 NS 100ML) Insulin Human Regular 100 ML ASDIR 10/31 0600 CAN (MYXREDLIN 100 UNITS/ IV 01/29 0559 NS 100ML) Insulin Human Regular 100 ML ASDIR 10/31 0430 DC (MYXREDLIN 100 UNITS/ IV 11/01 0424 NS 100ML) Allergies: Coded Allergies: No Known Allergies (02/28/24) Occupation: disabled Ambulatory status: Independent (L BKA) Review of Systems ROS Constitutional: Denies fatigue, Denies fever Eyes: Denies: redness, visual loss/blurred. Respiratory: Denies: LAWRENCE (dyspnea on exertion), SOB. Cardiovascular: Denies: chest pain, LAWRENCE (dyspnea on exertion). Musculoskeletal: Reports: lumbar pain. Neuro: Denies: confusion, focal weakness, headache. Objective VS/I O: Last Documented: Result Date Time Pulse Ox 96 10/31 1024 B/P 179/86 10/31 1024 B/P Mean 120 10/31 1024 Pulse 114 10/31 1024 Resp 21 10/31 0415 O2 Delivery Room air 10/31 0322 Temp 37.0 10/31 0322 24 hour I O ending at 0700: 10/31 0700 10/30 1900 Intake Total Output Total Balance Patient 90.4 kg Weight Weight Bed scale Measurement Method PATIENT WEIGHT: Weight (lb): Weight (oz): Weight (kg): 90.400 General appearance: alert, no acute distress, no respiratory distress Head/Eyes: EOMI, normocephalic Neck: no JVD, no lymphadenopathy Cardiovascular: normal capillary refill, regular rate rhythm Respiratory: no distress, aerating well Genitourinary: deferred Neuro/OYSTER TONGER: alert, oriented X 3, no motor deficits, no sensory deficits Results Findings/Data: Laboratory Tests: 10/31 10/31 10/31 10/31 10/31 0830 0631 0507 0329 0329 Chemistry POC Glucose (70 - 110 MG/DL) 179 H 156 H Hemoglobin A1c (4.8 - 6.0 %A1C) 10.2 H 10.2 H Phosphorus (2.5 - 4.9 MG/DL) 2.2 L Magnesium (1.6 - 2.6 mg/dL) 2.00 10/31 10/31 10/31 0329 0326 0317 Blood Gas Puncture Site iv ABG Hematocrit (33 - 45 %) 45 ABG Hemoglobin (11.0 - 15.0 G/DL) 15.3 H VBG pH (7.33 - 7.45) 7.265 L VBG pCO2 (43 - 47 mmHg) 42.4 L VBG pO2 (10 - 50 mmHG) 15.4 VBG HCO3 (22 - 27 MMOL/L) 19.3 L POC VBG Total CO2 (22 - 29) 20.6 L VBG O2 Saturation (60 - 80 %) 16.1 L VBG Base Excess (0 - +/ MMOL/L) -7.7 L VBG Temperature (F) 98.6 Sodium (134 - 147 mmol/L) 140 Potassium (3.4 - 5.0 mmol/L) 4.2 Chloride (100 - 108 mmol/L) 110 H Ionized Calcium (1.12 - 1.32 MMOL/L) 1.33 H Lactic Acid (0.9 - 1.7 mmol/l) 0.9 O2 Delivery Device Room Air Chemistry Sodium (134 - 147 mEq/L) 138 Potassium (3.4 - 5.0 mEq/L) 3.3 L Chloride (100 - 108 mEq/L) 107 Carbon Dioxide (21 - 33 mEq/l) 19 L Anion Gap (0 - 20) 15 BUN (7 - 25 mg/dL) 12 Creatinine (0.6 - 1.3 mg/dL) 1.1 POC Creatinine (0.6 - 1.3 mg/dL) 0.8 Glomerular Filtr Rate (95 - 105) 62.0 L Glucose (77 - 141 mg/dL) 151 H POC Glucose (70 - 110 MG/DL) 184 H POC Glucose (mg/dL) (70 - 110 MG/DL) 163 H Calcium (8.0 - 10.5 mg/dL) 8.6 Total Bilirubin (0.0 - 1.0 mg/dL) 0.40 AST (8 - 34 IUnit/L) 17 ALT (10 - 49 IUnit/L) 19 Total Alk Phosphatase (20 - 125 IUnit/L) 71 Total Protein (5.7 - 8.2 g/dL) 7.5 Albumin (3.4 - 5.0 g/dL) 3.70 Hematology WBC (4.5 - 11.0 x10 3/uL) 10.2 RBC (3.54 - 5.02 x10 6/uL) 5.46 H Hgb (11.0 - 15.0 g/dL) 14.8 Hct (33.0 - 45.0 %) 43.5 MCV (81.0 - 99.0 fL) 79.7 L MCH (27.0 - 33.0 pg) 27.1 MCHC (33.0 - 37.0 g/dL) 34.0 RDW (11.5 - 14.5 %) 15.4 H Plt Count (150 - 400 x10 3/uL) 339 MPV (7.0 - 9.0 fL) 8.3 Neut % (Auto) (56.0 - 77.0 %) 58.6 Lymph % (Auto) (14.0 - 32.0 %) 30.2 [place] % (Auto) (4.8 - 9.0 %) 5.3 Eos % (Auto) (0.3 - 3.7 %) 5.0 H Baso % (Auto) (0.0 - 2.0 %) 0.6 Neut # (Auto) (2.0 - 7.6 x10 3/uL) 5.94 Lymph # (Auto) (1.0 - 3.8 x10 3/uL) 3.07 [place] # (Auto) (0.1 - 0.8 x10 3/uL) 0.54 Eos # (Auto) (0.0 - 0.2 x10 3/uL) 0.51 H Baso # (Auto) (0.0 - 0.2 x10 3/uL) 0.06 Abs Immat Gran (auto) (0.00 - 0.03 x10 3/uL) 0.03 Immature Gran % (0.0 - 2.0 %) 0.3 Nucleated RBC % (0 - 0 %) 0.0 Nucleated RBCs # (Man) (0.0 - 0.1 x10 3/uL) 0.00 Laboratory Tests 10/31 0326 Blood Gas Puncture Site iv ABG Hematocrit (33 - 45 %) 45 ABG Hemoglobin (11.0 - 15.0 G/DL) 15.3 H VBG pH (7.33 - 7.45) 7.265 L VBG pCO2 (43 - 47 mmHg) 42.4 L VBG pO2 (10 - 50 mmHG) 15.4 VBG HCO3 (22 - 27 MMOL/L) 19.3 L POC VBG Total CO2 (22 - 29) 20.6 L VBG O2 Saturation (60 - 80 %) 16.1 L VBG Base Excess (0 - +/ MMOL/L) -7.7 L VBG Temperature (F) 98.6 Sodium (134 - 147 mmol/L) 140 Potassium (3.4 - 5.0 mmol/L) 4.2 Chloride (100 - 108 mmol/L) 110 H Ionized Calcium (1.12 - 1.32 MMOL/L) 1.33 H Lactic Acid (0.9 - 1.7 mmol/l) 0.9 O2 Delivery Device Room Air Laboratory Tests 10/31 10/31 10/31 10/31 10/31 0830 0631 0507 0329 0329 Chemistry POC Glucose (70 - 110 MG/DL) 179 H 156 H Hemoglobin A1c (4.8 - 6.0 %A1C) 10.2 H 10.2 H Phosphorus (2.5 - 4.9 MG/DL) 2.2 L Magnesium (1.6 - 2.6 mg/dL) 2.00 10/31 10/31 10/31 0329 0326 0317 Chemistry Sodium (134 - 147 mEq/L) 138 Potassium (3.4 - 5.0 mEq/L) 3.3 L Chloride (100 - 108 mEq/L) 107 Carbon Dioxide (21 - 33 mEq/l) 19 L Anion Gap (0 - 20) 15 BUN (7 - 25 mg/dL) 12 Creatinine (0.6 - 1.3 mg/dL) 1.1 POC Creatinine (0.6 - 1.3 mg/dL) 0.8 Glomerular Filtr Rate (95 - 105) 62.0 L Glucose (77 - 141 mg/dL) 151 H POC Glucose (70 - 110 MG/DL) 184 H POC Glucose (mg/dL) (70 - 110 MG/DL) 163 H Calcium (8.0 - 10.5 mg/dL) 8.6 Total Bilirubin (0.0 - 1.0 mg/dL) 0.40 AST (8 - 34 IUnit/L) 17 ALT (10 - 49 IUnit/L) 19 Total Alk Phosphatase (20 - 125 IUnit/L) 71 Total Protein (5.7 - 8.2 g/dL) 7.5 Albumin (3.4 - 5.0 g/dL) 3.70 Laboratory Tests 10/31 0329 Hematology WBC (4.5 - 11.0 x10 3/uL) 10.2 RBC (3.54 - 5.02 x10 6/uL) 5.46 H Hgb (11.0 - 15.0 g/dL) 14.8 Hct (33.0 - 45.0 %) 43.5 MCV (81.0 - 99.0 fL) 79.7 L MCH (27.0 - 33.0 pg) 27.1 MCHC (33.0 - 37.0 g/dL) 34.0 RDW (11.5 - 14.5 %) 15.4 H Plt Count (150 - 400 x10 3/uL) 339 MPV (7.0 - 9.0 fL) 8.3 Neut % (Auto) (56.0 - 77.0 %) 58.6 Lymph % (Auto) (14.0 - 32.0 %) 30.2 [place] % (Auto) (4.8 - 9.0 %) 5.3 Eos % (Auto) (0.3 - 3.7 %) 5.0 H Baso % (Auto) (0.0 - 2.0 %) 0.6 Neut # (Auto) (2.0 - 7.6 x10 3/uL) 5.94 Lymph # (Auto) (1.0 - 3.8 x10 3/uL) 3.07 [place] # (Auto) (0.1 - 0.8 x10 3/uL) 0.54 Eos # (Auto) (0.0 - 0.2 x10 3/uL) 0.51 H Baso # (Auto) (0.0 - 0.2 x10 3/uL) 0.06 Abs Immat Gran (auto) (0.00 - 0.03 x10 3/uL) 0.03 Immature Gran % (0.0 - 2.0 %) 0.3 Nucleated RBC % (0 - 0 %) 0.0 Nucleated RBCs # (Man) (0.0 - 0.1 x10 3/uL) 0.00 Diagnosis, Assessment Plan Problem List/A P: 1. HX OF DEPRESSION 2. HX OF BIPOLAR 3. HX OF ANXIETY 4. Discitis Free Text A P: Patient examined with, imaging reviewed with and plan of care formulated by Dr. Kan 49 year old female with past medical hx of DM type II m (HGBA1c 10.2), Bipolar, Anxiety, depression presents to [facility] with back pain that started yesterday morning when she woke up. Report from OSH- small 5mm gas bubble superior S1 left canal paramedian corner. (no disc available). WBC 10.2, T 98.6 no emergent neurosurgical intervention will order MRI L-spine w w/out contrast SED rate/CRP pain control neuro checks 4 hr I.D. consulted (discitis) Endocrine consulted (Hgb A1c 10.2) will f/u when MRI completed JAKOB distinctive service time: 48 minutes. JAKOB and Physician shared Service Time: 10 minutes discussing diagnosis, exam and plan of care. Srini Kan 10/31/242020: Diagnosis, Assessment Plan Free Text A P: Agree with above, clinically she does not exhobit s/s of acute discitis, it is highly likely to be degenerative in nature, awaits MRI, ESR, CRP. at 202 at 1151 RPT #:[id number] END OF REPORT [facility] 2024-10-31 11:04:00 [facility] ([facility]) Pain Management Consult Note REPORT#:[id number] REPORT STATUS: Signed REPORT INITIALIZATION DATE:10/31/24 TIME: 110 PATIENT: MARY GRACE CRAWLEY UNIT #: [id number] ROOM/BED: [place] [address] : 76 AGE: 49 SEX: F ATTEND: Claudine Davis MD ADM AUTHOR: Emeterio Garcia NP REPT SERVICE DT/TIME: 10/31/24 1104 * ALL edits or amendments must be made on the electronic/computer document * History of Present Illness Requesting clinician: Claudine Davis MD Chief complaint: Back pain HPI: Requesting clinician: Claudine Holland Reason for consult: Acute complex pain syndrome for evaluation and management This is a 49 year old female with past medical hx of DM type II, Bipolar, Anxiety, depression presents with back pain found to have discitis as well as elevated anion gap with acidosis. Pain history: Location: Location: Back Radiation: Hip Onset: gradual Duration: weeks Pain severity: 02/28 Nature of pain: Sharp Exacerbated by: movement Relieved by: pain medication Associated conditions:NA Review of Systems Additional notes: Review was conducted and was negative except for what's noted in the HPI and Medical History. The following systems were reviewed: Constitutional, cardiovascular, respiratory, gastrointestinal, genitourinary, musculoskeletal, neurologic, psychiatric, endocrinological, and hematologic History - Adult longitudinal Past medical history: Reports: Depression/mood disorder, Diabetes mellitus. Additional medical history: ANXIETY, Bipolar Past surgical history: Reports: Amputation (Lt bka). Alcohol use: Denies EtOH use Drug use: Denies recreational drugs Smoking status for patients 13 years old or older: Former Smoker Allergies: Coded Allergies: No Known Allergies (02/28/24) Objective Physical Exam VS/I O: Last Documented: Result Date Time Pulse Ox 96 10/31 0900 B/P 129/65 10/31 0900 B/P Mean 90 10/31 0900 Pulse 101 10/31 0900 Resp 21 10/31 0415 O2 Delivery Room air 10/31 0322 Temp 98.6 10/31 0322 24 hour I O ending at 0700: 10/31 0700 10/30 1900 Intake Total Output Total Balance Patient 90.4 kg Weight Weight Bed scale Measurement Method PATIENT WEIGHT: Weight (lb): Weight (oz): Weight (kg): 90.400 General appearance: alert, awake, oriented, no acute distress, pleasant, conversational, mental status normal, no respiratory distress Head/eyes: atraumatic, PERRLA Neck: full range of motion Respiratory: clear to auscultation Abdomen: soft Extremities: moves all (Back pain) Neuro/OYSTER TONGER: alert Results Findings/data: Laboratory Tests: 10/31 10/31 10/31 10/31 10/31 0830 0631 0507 0329 0329 Chemistry POC Glucose (70 - 110 MG/DL) 179 H 156 H Hemoglobin A1c (4.8 - 6.0 %A1C) 10.2 H 10.2 H Phosphorus (2.5 - 4.9 MG/DL) 2.2 L Magnesium (1.6 - 2.6 mg/dL) 2.00 10/31 10/31 10/31 0329 0326 0317 Blood Gas Puncture Site iv ABG Hematocrit (33 - 45 %) 45 ABG Hemoglobin (11.0 - 15.0 G/DL) 15.3 H VBG pH (7.33 - 7.45) 7.265 L VBG pCO2 (43 - 47 mmHg) 42.4 L VBG pO2 (10 - 50 mmHG) 15.4 VBG HCO3 (22 - 27 MMOL/L) 19.3 L POC VBG Total CO2 (22 - 29) 20.6 L VBG O2 Saturation (60 - 80 %) 16.1 L VBG Base Excess (0 - +/ MMOL/L) -7.7 L VBG Temperature (F) 98.6 Sodium (134 - 147 mmol/L) 140 Potassium (3.4 - 5.0 mmol/L) 4.2 Chloride (100 - 108 mmol/L) 110 H Ionized Calcium (1.12 - 1.32 MMOL/L) 1.33 H Lactic Acid (0.9 - 1.7 mmol/l) 0.9 O2 Delivery Device Room Air Chemistry Sodium (134 - 147 mEq/L) 138 Potassium (3.4 - 5.0 mEq/L) 3.3 L Chloride (100 - 108 mEq/L) 107 Carbon Dioxide (21 - 33 mEq/l) 19 L Anion Gap (0 - 20) 15 BUN (7 - 25 mg/dL) 12 Creatinine (0.6 - 1.3 mg/dL) 1.1 POC Creatinine (0.6 - 1.3 mg/dL) 0.8 Glomerular Filtr Rate (95 - 105) 62.0 L Glucose (77 - 141 mg/dL) 151 H POC Glucose (70 - 110 MG/DL) 184 H POC Glucose (mg/dL) (70 - 110 MG/DL) 163 H Calcium (8.0 - 10.5 mg/dL) 8.6 Total Bilirubin (0.0 - 1.0 mg/dL) 0.40 AST (8 - 34 IUnit/L) 17 ALT (10 - 49 IUnit/L) 19 Total Alk Phosphatase (20 - 125 IUnit/L) 71 Total Protein (5.7 - 8.2 g/dL) 7.5 Albumin (3.4 - 5.0 g/dL) 3.70 Hematology WBC (4.5 - 11.0 x10 3/uL) 10.2 RBC (3.54 - 5.02 x10 6/uL) 5.46 H Hgb (11.0 - 15.0 g/dL) 14.8 Hct (33.0 - 45.0 %) 43.5 MCV (81.0 - 99.0 fL) 79.7 L MCH (27.0 - 33.0 pg) 27.1 MCHC (33.0 - 37.0 g/dL) 34.0 RDW (11.5 - 14.5 %) 15.4 H Plt Count (150 - 400 x10 3/uL) 339 MPV (7.0 - 9.0 fL) 8.3 Neut % (Auto) (56.0 - 77.0 %) 58.6 Lymph % (Auto) (14.0 - 32.0 %) 30.2 [place] % (Auto) (4.8 - 9.0 %) 5.3 Eos % (Auto) (0.3 - 3.7 %) 5.0 H Baso % (Auto) (0.0 - 2.0 %) 0.6 Neut # (Auto) (2.0 - 7.6 x10 3/uL) 5.94 Lymph # (Auto) (1.0 - 3.8 x10 3/uL) 3.07 [place] # (Auto) (0.1 - 0.8 x10 3/uL) 0.54 Eos # (Auto) (0.0 - 0.2 x10 3/uL) 0.51 H Baso # (Auto) (0.0 - 0.2 x10 3/uL) 0.06 Abs Immat Gran (auto) (0.00 - 0.03 x10 3/uL) 0.03 Immature Gran % (0.0 - 2.0 %) 0.3 Nucleated RBC % (0 - 0 %) 0.0 Nucleated RBCs # (Man) (0.0 - 0.1 x10 3/uL) 0.00 Diagnosis, Assessment Plan Free text A P: Assessment/ Plan Patient assessed. chart reviewed. Will treat pain with PO and IV short acting opioids PRN pain medication, gabapentin for neuropathic pain and Robaxin for muscle spasm. 1. Acute complex pain syndrome 2/2 Discitis - Dilaudid 0.5mg q4hr PRN for pain 7-10 second line - [place] 10/325mg 1tab q4hr PRN for pain 7-10 first line - [place] 5/325mg 1tab q4hr PRN for pain 4-6 -Tylenol 650mg q4hr PRN for pain 1-3 2. Neuropathic pain Gabapentin 100mg PO BID 3. Muscle Spasm Robaxin 500mg 1tab PO Q8HR 4. Bowel Regimen - by Primary team -start pain regimen as above -Monitor for S/E such as AMS, Lethargy/sedation, changes in respiratory function -Continue BP parameters -APS( Acute Pain services) will continue to follow -please call pain management for any pain-related concerns or questions Goal: Daily pain control to improve function and/or quality of life ([x]) Pain control until condition naturally resolves ([x]) Inpatient pain control ([x]) Improved sleep cycle ([x]) all narcotics medications will be adjusted according to the patient's medical condition during the hospital stay Alll diagnostic images/lab and medical records during the course of this admission as well as [facility] records reviewed Risk versus benefit of opiate medications: All risk and benefit were reviewed with the patient and family members, risk not limited to respiratory depression, accidental overdose, risk of fall, altered mental status, constipation, dependency, addiction, withdrawn, sudden . Plan discussed with: The pain plan of care has been discussed with the patient and the nursing staff. Patient is in agreement with the following plan of care and wishes to proceed. Questions and concerns have been answered to the patient' s satisfaction. Patient has verbalized understanding. PDMP 10/18/2024 09/27/2024 1 Lyrica 200 Mg Capsule 60.00 30 [place] [id number] Wal ([id number]) 0 2.68 LMET Medicaid [place] 09/03/2024 03/16/2024 1 Pregabalin 100 Mg Capsule 60.00 30 [facility] [id number] Heb ([id number]) 1 1.34 LME Comm Ins [place] 07/07/2024 03/16/2024 1 Pregabalin 100 Mg Capsule 60.00 30 [facility] [id number] Heb ([id number]) 0 1.34 LME Comm Ins [place] 05/21/2024 03/16/2024 1 Pregabalin 100 Mg Capsule 60.00 30 [facility] [phone] Wal ([id number]) 1 1.34 LMET Private Pay [place] 03/30/2024 03/16/2024 1 Pregabalin 100 Mg Capsule 60.00 30 [facility] [id number] Wal ([id number]) 0 1.34 LMET Comm Ins [place] 02/20/2024 10/20/2023 1 Pregabalin 100 Mg Capsule 60.00 30 [place] [id number] Wal ([id number]) 2 1.34 LMET Comm Ins [place] 01/12/2024 10/20/2023 1 Pregabalin 100 Mg Capsule 60.00 30 [place] [id number] Wal ([id number]) 1 1.34 LMET Comm Ins [place] 11/30/2023 10/20/2023 1 Pregabalin 100 Mg Capsule 60.00 30 [place] [id number] Wal ([id number]) 0 1.34 LMET Comm Ins [place] 10/20/2023 10/20/2023 1 Pregabalin 100 Mg Capsule 60.00 30 [place] [id number] Wal ([id number]) 0 1.34 LMET Comm Ins [place] at 1025 at 0838 RPT #:[id number] END OF REPORT [facility] 2024-10-31 10:33:00 [facility] ([facility]) Critical Care Consult Note REPORT#:[id number] REPORT STATUS: Signed REPORT INITIALIZATION DATE:10/31/24 TIME: 1033 PATIENT: MARY GRACE CRAWLEY UNIT #: [id number] ROOM/BED: [place] [id number] : 76 AGE: 49 SEX: F ATTEND: Claudine Davis MD ADM AUTHOR: Carol Beyer REPT SERVICE DT/TIME: 10/31/24 1033 * ALL edits or amendments must be made on the electronic/computer document * History of Present Illness HPI Reason for consult: DKA, CT lumbar findings Chief complaint: Back pain HPI: Christiano Molina 49-year-old woman with medical history of diabetes type 2, 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 Presented to [facility] with back pain found to have discitis as well as elevated anion gap with acidosis thought to be in DKA. Started on insulin drip transferred here for neurosurgery evaluation. Hx Obtained From Patient History - Adult longitudinal Past medical history: Reports: Depression/mood disorder, Diabetes mellitus. Additional medical history: ANXIETY, Bipolar Past surgical history: Reports: Amputation (Lt bka). Smoking status for patients 13 years old or older: Former Smoker Allergies: Coded Allergies: No Known Allergies (02/28/24) Objective Physical Exam VS/I O: Last Documented: Result Date Time Pulse Ox 96 10/31 0900 B/P 129/65 10/31 0900 B/P Mean 90 10/31 0900 Pulse 101 10/31 0900 Resp 21 10/31 0415 O2 Delivery Room air 10/31 0322 Temp 98.6 10/31 0322 24 hour I O ending at 0700: 10/31 0700 10/30 1900 Intake Total Output Total Balance Patient 90.4 kg Weight Weight Bed scale Measurement Method Patient Weight and BMI Weight (kg): 90.400 BMI: 27.0 Medications: Active Meds + DC'd Last 24 Hrs Insulin Glargine (Semglee) 15 UNIT DAILY SUBQ (PEND) Gabapentin (NEURONTIN) 100 MG BID PO Insulin Human Lispro (Admelog) 0 AC HS SUBQ (PEND) Acetaminophen (TYLENOL) 650 MG Q4H PRN PRN PO Albuterol/Ipratropium (DUONEB) 3 ML RTQ4H PRN PRN NEB Dextrose/Water (DEXTROSE 10% IN WATER) 125 ML ASDIR PRN IV (CKD) Dextrose/Water (DEXTROSE 10% IN WATER) 250 ML ASDIR PRN IV (CKD) Docusate Sodium (COLACE) 100 MG DAILY PRN PRN PO Glucagon (GLUCAGON) 1 MG ASDIR PRN IM Hydralazine HCl (APRESOLINE) 10 MG Q6H PRN PRN IV Ondansetron HCl (ZOFRAN) 4 MG Q4H PRN PRN IV Fentanyl Citrate (SUBLIMAZE) 75 MCG Q4H PRN PRN IV Dextrose/Lactated Ringer's (Dextrose 5% / Lactated Ringers) 1,000 ML .Q6H40M IV Potassium Chloride (KCl) 10 MEQ .Q6H40M IV (CAN) Dextrose/Lactated Ringer's (Dextrose 5% / Lactated Ringers) 1,000 ML Dextrose/Water (Dextrose 10% 1,000 mL) 1,000 ML ASDIR IV Insulin Human Regular (MYXREDLIN 100 UNITS/NS 100ML) 100 ML ASDIR IV ( CKD) Insulin Human Regular (MYXREDLIN 100 UNITS/NS 100ML) 100 ML ASDIR IV ( CAN) Magnesium Sulfate (MAGNESIUM SULFATE 2GM/SWFI 50ML) 50 ML ASDIR PRN IV Magnesium Sulfate (MAGNESIUM SULFATE 4GM/SWFI 100ML) 100 ML ASDIR PRN IV Potassium Chloride (POTASSIUM CHLORIDE 20MEQ TAB.ER) 20 MEQ ASDIR PRN PO Potassium Chloride (K-MOSES 20 MEQ PACKET) 20 MEQ ASDIR PRN FEED-TUBE Potassium Chloride (KCL 10MEQ/SWFI 50ML) 50 ML ASDIR PRN IV Potassium Phosphate (POTASSIUM PHOSPHATE) 15 MM ASDIR PRN IV Sodium Chloride (SODIUM CHLORIDE 0.9%) 250 ML Fentanyl Citrate (SUBLIMAZE) 50 MCG ONCE ONE IV (DC) Morphine Sulfate (morphine SULFATE) 4 MG NOW ONE IV (DC) Dextrose/Water (Dextrose 10% 1,000 mL) 1,000 ML ASDIR PRN IV (DC) Insulin Human Regular (MYXREDLIN 100 UNITS/NS 100ML) 100 ML ASDIR IV (DC ) Sodium Chloride (SODIUM CHLORIDE 0.9%) 1,000 ML Q5H IV Dextrose/Water (Dextrose 10% 1,000 mL) 1,000 ML ASDIR IV (DC) Magnesium Sulfate (MAGNESIUM SULFATE 2GM/SWFI 50ML) 50 ML ASDIR PRN IV ( DC) Magnesium Sulfate (MAGNESIUM SULFATE 4GM/SWFI 100ML) 100 ML ASDIR PRN IV (DC) Potassium Chloride (POTASSIUM CHLORIDE 20MEQ TAB.ER) 20 MEQ ASDIR PRN PO (DC) Potassium Chloride (K-MOSES 20 MEQ PACKET) 20 MEQ ASDIR PRN FEED-TUBE (DC) Potassium Phosphate (POTASSIUM PHOSPHATE) 15 MM ASDIR PRN IV (DC) Sodium Chloride (SODIUM CHLORIDE 0.9%) 250 ML Morphine Sulfate (morphine SULFATE) 4 MG X1ED STA IV (DC) General appearance: alert, awake, oriented Results Findings/Data: Laboratory Tests 10/31/24 0329: [Embedded Image Not Available] Laboratory Tests 10/31 325 Blood Gas Puncture Site iv ABG Hematocrit (33 - 45 %) 45 ABG Hemoglobin (11.0 - 15.0 G/DL) 15.3 H VBG pH (7.33 - 7.45) 7.265 L VBG pCO2 (43 - 47 mmHg) 42.4 L VBG pO2 (10 - 50 mmHG) 15.4 VBG HCO3 (22 - 27 MMOL/L) 19.3 L POC VBG Total CO2 (22 - 29) 20.6 L VBG O2 Saturation (60 - 80 %) 16.1 L VBG Base Excess (0 - +/ MMOL/L) -7.7 L VBG Temperature (F) 98.6 Sodium (134 - 147 mmol/L) 140 Potassium (3.4 - 5.0 mmol/L) 4.2 Chloride (100 - 108 mmol/L) 110 H Ionized Calcium (1.12 - 1.32 MMOL/L) 1.33 H Lactic Acid (0.9 - 1.7 mmol/l) 0.9 O2 Delivery Device Room Air Laboratory Tests 10/31 10/31 10/31 10/31 10/31 0830 0631 0507 0329 0329 Chemistry POC Glucose (70 - 110 MG/DL) 179 H 156 H Hemoglobin A1c (4.8 - 6.0 %A1C) 10.2 H 10.2 H Phosphorus (2.5 - 4.9 MG/DL) 2.2 L Magnesium (1.6 - 2.6 mg/dL) 2.00 10/31 10/31 10/31 0329 0326 0317 Chemistry Sodium (134 - 147 mEq/L) 138 Potassium (3.4 - 5.0 mEq/L) 3.3 L Chloride (100 - 108 mEq/L) 107 Carbon Dioxide (21 - 33 mEq/l) 19 L Anion Gap (0 - 20) 15 BUN (7 - 25 mg/dL) 12 Creatinine (0.6 - 1.3 mg/dL) 1.1 POC Creatinine (0.6 - 1.3 mg/dL) 0.8 Glomerular Filtr Rate (95 - 105) 62.0 L Glucose (77 - 141 mg/dL) 151 H POC Glucose (70 - 110 MG/DL) 184 H POC Glucose (mg/dL) (70 - 110 MG/DL) 163 H Calcium (8.0 - 10.5 mg/dL) 8.6 Total Bilirubin (0.0 - 1.0 mg/dL) 0.40 AST (8 - 34 IUnit/L) 17 ALT (10 - 49 IUnit/L) 19 Total Alk Phosphatase (20 - 125 IUnit/L) 71 Total Protein (5.7 - 8.2 g/dL) 7.5 Albumin (3.4 - 5.0 g/dL) 3.70 Laboratory Tests 10/31 0329 Hematology WBC (4.5 - 11.0 x10 3/uL) 10.2 RBC (3.54 - 5.02 x10 6/uL) 5.46 H Hgb (11.0 - 15.0 g/dL) 14.8 Hct (33.0 - 45.0 %) 43.5 MCV (81.0 - 99.0 fL) 79.7 L MCH (27.0 - 33.0 pg) 27.1 MCHC (33.0 - 37.0 g/dL) 34.0 RDW (11.5 - 14.5 %) 15.4 H Plt Count (150 - 400 x10 3/uL) 339 MPV (7.0 - 9.0 fL) 8.3 Neut % (Auto) (56.0 - 77.0 %) 58.6 Lymph % (Auto) (14.0 - 32.0 %) 30.2 [place] % (Auto) (4.8 - 9.0 %) 5.3 Eos % (Auto) (0.3 - 3.7 %) 5.0 H Baso % (Auto) (0.0 - 2.0 %) 0.6 Neut # (Auto) (2.0 - 7.6 x10 3/uL) 5.94 Lymph # (Auto) (1.0 - 3.8 x10 3/uL) 3.07 [place] # (Auto) (0.1 - 0.8 x10 3/uL) 0.54 Eos # (Auto) (0.0 - 0.2 x10 3/uL) 0.51 H Baso # (Auto) (0.0 - 0.2 x10 3/uL) 0.06 Abs Immat Gran (auto) (0.00 - 0.03 x10 3/uL) 0.03 Immature Gran % (0.0 - 2.0 %) 0.3 Nucleated RBC % (0 - 0 %) 0.0 Nucleated RBCs # (Man) (0.0 - 0.1 x10 3/uL) 0.00 GEN: Patient is calm and in no distress. NECK: Supple, no JVD or thrush. No adenopathy. LUNGS: Clear lungs, no wheezes, no rales or crackles. CV: S1, S2 regular, no murmurs are heard. No S3 or rubs. GI: Abdomen is soft, not tender. Bowel sounds are present. EXT/Musc: No edema. No clubbing or cyanosis noted. Left BKA with prosthesis NEURO: Awake and oriented x 3. No focal findings. 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 Here from outside hospital for neurosurgery evaluation, lumbar CT at OSH indicating discitis. Critical Care problem list: DKA Nurosurg evaluation 10/31/2024 Patient seen and evaluated in the ED alert and oriented x 4, reporting back pain. At time of evaluation patient off insulin drip anion gap of 15 and blood glucose of 155. Patient to be evaluated by neurosurgery, at the moment patient no longer have ICU needs. Neuro Alert and oriented x 3 Reporting back pain 8 of 10 Medications ordered Cardiovascular Sinus on telemetry Respiratory No acute issues GI/ DKA resolved Gap of 15 NPO until GAP Consistent carb diet Oral hydration Renal Creatinine 1.1 Replace electrolytes as needed. Repeat labs in AM Heme HGB stable at 14.8 Repeat labs in AM Transfuse PRBC if HGB less than 7 Endo Insulin ACHS and ISS A1C/TSH pending. MSK: Independent with prosthesis ID Afebrile WBC 10.2 Continue to monitor clinically DVT/PPI SCDs/Pepcid/lovenox Dispo: Medical surgical unit 45 minutes of critical care time excluding procedure time assessing, reviewing lab, imaging and discussing plan of care with patient and critical care medical clinic manager, at 1051 RPT #:[id number] END OF REPORT [facility] 2024-10-31 10:32:00 [facility] ([facility]) Hospitalist History Physical REPORT#:[id number] REPORT STATUS: Signed REPORT INITIALIZATION DATE:10/31/24 TIME: 103 PATIENT: MARY GRACE CRAWLEY UNIT #: [id number] ROOM/BED: [place] [address] : 76 AGE: 49 SEX: F ATTEND: Claudine Davis MD ADM AUTHOR: Keshawn Garcia NP REPT SERVICE DT/TIME: 10/31/24 1032 * ALL edits or amendments must be made on the electronic/computer document * History of Present Illness HPI Chief complaint: pain PCP: PCP: No Primary or Family Physician HPI: This is a 49 year old female with past medical hx of DM type II, Bipolar, Anxiety, depression presents to [facility] with back pain found to have discitis as well as elevated anion gap with acidosis thought to be in DKA. She was Started on insulin drip transferred here for further evaluation. History Past medical history: Reports: Depression/mood disorder, Diabetes mellitus. Additional medical history: ANXIETY, Bipolar Past surgical history: Reports: Amputation (Lt bka). Alcohol use: Denies EtOH use Drug use: Denies recreational drugs Smoking status for patients 13 years old or older: Former Smoker Medication/Allergy-Vaccine Hx Medications: Home Medications: Medication Dose/Rte/Freq Days Qty Entered Last Max Daily Dose Reviewed ONDANSETRON ODT 4 MG PO 15 02/28/24 (ZOFRAN ODT) Q6H PRN PRN 1826 Strength: 4 MG TAB.RAPDIS NAUSEA/VOMITING Current Hospital Medications: Autonomic Drugs Sig/Drake Start time Last Medication Dose Route Stop Time Status Admin Albuterol/Ipratropium 3 ML RTQ4H PRN PRN 10/31 1045 UNV (DUONEB) NEB 01/29 1044 Cardiovascular Drugs Sig/Drake Start time Last Medication Dose Route Stop Time Status Admin Hydralazine HCl 10 MG Q6H PRN PRN 10/31 1045 UNV (APRESOLINE) IV 01/29 1044 Central Nervous System Agents Sig/Drake Start time Last Medication Dose Route Stop Time Status Admin Gabapentin 100 MG BID 10/31 2100 UNV (NEURONTIN) PO 01/29 205 Acetaminophen 650 MG Q4H PRN PRN 10/31 1045 UNV (TYLENOL) PO 01/29 1044 Fentanyl Citrate 75 MCG Q4H PRN PRN 10/31 0945 AC 10/31 (SUBLIMAZE) IV 11/05 0944 1021 Magnesium Sulfate 50 ML ASDIR PRN 10/31 0600 AC (MAGNESIUM SULFATE IV 01/29 0559 2GM/SWFI 50ML) Magnesium Sulfate 100 ML ASDIR PRN 10/31 0600 AC (MAGNESIUM SULFATE IV 01/29 0559 4GM/SWFI 100ML) Fentanyl Citrate 50 MCG ONCE ONE 10/31 0530 DC 10/31 (SUBLIMAZE) IV 10/31 0531 0526 Morphine Sulfate 4 MG NOW ONE 10/31 0445 DC 10/31 (morphine SULFATE) IV 10/31 0446 0452 Magnesium Sulfate 50 ML ASDIR PRN 10/31 0345 DC (MAGNESIUM SULFATE IV 01/29 0344 2GM/SWFI 50ML) Magnesium Sulfate 100 ML ASDIR PRN 10/31 0345 DC (MAGNESIUM SULFATE IV 01/29 0344 4GM/SWFI 100ML) Morphine Sulfate 4 MG X1ED STA 10/31 0335 DC (morphine SULFATE) IV 10/31 0336 Electrolytic, Caloric, And Terry Sig/Drake Start time Last Medication Dose Route Stop Time Status Admin Dextrose/Water 125 ML ASDIR PRN 10/31 1045 UNV (DEXTROSE 10% IN IV 01/29 1044 WATER) Dextrose/Water 250 ML ASDIR PRN 10/31 1045 UNV (DEXTROSE 10% IN IV 01/29 1044 WATER) Dextrose/Lactated 1,000 ML .Q6H40M 10/31 0645 AC Ringer's IV 10/31 1324 (Dextrose 5% / Lactated Ringers) Potassium Chloride 10 MEQ .Q6H40M 10/31 0615 CAN (KCl) IV 01/29 0614 Dextrose/Lactated 1,000 ML Ringer's (Dextrose 5% / Lactated Ringers) Dextrose/Water 1,000 ML ASDIR 10/31 0600 AC (Dextrose 10% 1,000 IV 01/29 0559 mL) Potassium Chloride 20 MEQ ASDIR PRN 10/31 0600 AC (POTASSIUM CHLORIDE PO 01/29 05 20MEQ TAB.ER) Potassium Chloride 20 MEQ ASDIR PRN 10/31 06 AC (K-MOSES 20 MEQ PACKET) FEED-TUBE 01/29 0559 Potassium Chloride 50 ML ASDIR PRN 10/31 0600 AC (KCL 10MEQ/SWFI 50ML) IV 01/29 0559 Potassium Phosphate 15 MM ASDIR PRN 10/31 06 AC (POTASSIUM PHOSPHATE) IV 01/29 0559 Sodium Chloride 250 ML (SODIUM CHLORIDE 0.9%) Dextrose/Water 1,000 ML ASDIR PRN 10/31 0430 DC (Dextrose 10% 1,000 IV 11/01 0424 mL) Sodium Chloride 1,000 ML Q5H 10/31 0430 AC (SODIUM CHLORIDE IV 11/01 042 0.9%) Dextrose/Water 1,000 ML ASDIR 10/31 0345 DC (Dextrose 10% 1,000 IV 01/29 0344 mL) Potassium Chloride 20 MEQ ASDIR PRN 10/31 0345 DC (POTASSIUM CHLORIDE PO 01/29 0344 20MEQ TAB.ER) Potassium Chloride 20 MEQ ASDIR PRN 10/31 0345 DC (K-MOSES 20 MEQ PACKET) FEED-TUBE 01/29 034 Potassium Phosphate 15 MM ASDIR PRN 10/31 0345 DC (POTASSIUM PHOSPHATE) IV 01/29 0344 Sodium Chloride 250 ML (SODIUM CHLORIDE 0.9%) Gastrointestinal Drugs Sig/Drake Start time Last Medication Dose Route Stop Time Status Admin Docusate Sodium 100 MG DAILY PRN PRN 10/31 1045 UNV (COLACE) PO 01/29 1044 Ondansetron HCl 4 MG Q4H PRN PRN 10/31 1045 UNV (ZOFRAN) IV 01/29 1044 Hormones And Synthetic Substit Sig/Drake Start time Last Medication Dose Route Stop Time Status Admin Insulin Glargine 15 UNIT DAILY 11/01 0900 UNV (Semglee) SUBQ 01/30 0859 Insulin Human Lispro 0 AC HS 10/31 1130 UNV (Admelog) SUBQ 01/29 1129 Glucagon 1 MG ASDIR PRN 10/31 1045 UNV (GLUCAGON) IM 01/29 1044 Insulin Human Regular 100 ML ASDIR 10/31 0600 CKD (MYXREDLIN 100 UNITS/ IV 01/29 0559 NS 100ML) Insulin Human Regular 100 ML ASDIR 10/31 0600 CAN (MYXREDLIN 100 UNITS/ IV 01/29 0559 NS 100ML) Insulin Human Regular 100 ML ASDIR 10/31 0430 DC (MYXREDLIN 100 UNITS/ IV 11/01 0424 NS 100ML) Allergies: Coded Allergies: No Known Allergies (02/28/24) Review of Systems Constitutional: fatigue, generalized weakness. Allergy/Immun: Denies: anaphylaxis, itching, rhinorrhea. Respiratory: Denies: hemoptysis, pleurisy, pneumonia, productive cough (sputum). Cardiovascular: Denies: chest pain, edema, palpitations. GI: Denies: anorexia, dysphagia, hematemesis, hematochezia, melena. : Denies: frequency, nocturia, urinary retention. Musculoskeletal: extremity pain, joint pain, lumbar pain, neck pain. Neuro: Denies: bowel dysfunction, dizziness, headache, lightheaded, seizure, spinning sensation. Objective General VS/I O: Vital Signs: Date Time Temp Pulse Resp B/P B/P Pulse O2 O2 Flow FiO2 Mean Ox Delivery Rate 10/31 0900 101 129/65 90 96 10/31 0701 111 128/81 94 10/31 0700 99 10/31 0415 107 21 132/72 95 99 10/31 0400 106 13 128/68 93 98 10/31 0345 108 19 118/63 85 98 10/31 0330 111 13 136/71 96 99 10/31 0327 110 162/85 116 99 10/31 0322 37.0 106 15 162/85 98 Room air 24 hour I O ending at 0700: 10/31 0700 10/30 1900 Intake Total Output Total Balance Patient 90.4 kg Weight Weight Bed scale Measurement Method PATIENT WEIGHT: Weight (lb): Weight (oz): Weight (kg): 90.400 Medications: Active Meds + DC'd Last 24 Hrs Insulin Glargine (Semglee) 15 UNIT DAILY SUBQ (UNV) Gabapentin (NEURONTIN) 100 MG BID PO (UNV) Insulin Human Lispro (Admelog) 0 AC HS SUBQ (PEND) Acetaminophen (TYLENOL) 650 MG Q4H PRN PRN PO (UNV) Albuterol/Ipratropium (DUONEB) 3 ML RTQ4H PRN PRN NEB (UNV) Dextrose/Water (DEXTROSE 10% IN WATER) 125 ML ASDIR PRN IV (UNV) Dextrose/Water (DEXTROSE 10% IN WATER) 250 ML ASDIR PRN IV (UNV) Docusate Sodium (COLACE) 100 MG DAILY PRN PRN PO (UNV) Glucagon (GLUCAGON) 1 MG ASDIR PRN IM (UNV) Hydralazine HCl (APRESOLINE) 10 MG Q6H PRN PRN IV (UNV) Ondansetron HCl (ZOFRAN) 4 MG Q4H PRN PRN IV (UNV) Fentanyl Citrate (SUBLIMAZE) 75 MCG Q4H PRN PRN IV Dextrose/Lactated Ringer's (Dextrose 5% / Lactated Ringers) 1,000 ML .Q6H40M IV Potassium Chloride (KCl) 10 MEQ .Q6H40M IV (CAN) Dextrose/Lactated Ringer's (Dextrose 5% / Lactated Ringers) 1,000 ML Dextrose/Water (Dextrose 10% 1,000 mL) 1,000 ML ASDIR IV Insulin Human Regular (MYXREDLIN 100 UNITS/NS 100ML) 100 ML ASDIR IV ( CKD) Insulin Human Regular (MYXREDLIN 100 UNITS/NS 100ML) 100 ML ASDIR IV ( CAN) Magnesium Sulfate (MAGNESIUM SULFATE 2GM/SWFI 50ML) 50 ML ASDIR PRN IV Magnesium Sulfate (MAGNESIUM SULFATE 4GM/SWFI 100ML) 100 ML ASDIR PRN IV Potassium Chloride (POTASSIUM CHLORIDE 20MEQ TAB.ER) 20 MEQ ASDIR PRN PO Potassium Chloride (K-MOSES 20 MEQ PACKET) 20 MEQ ASDIR PRN FEED-TUBE Potassium Chloride (KCL 10MEQ/SWFI 50ML) 50 ML ASDIR PRN IV Potassium Phosphate (POTASSIUM PHOSPHATE) 15 MM ASDIR PRN IV Sodium Chloride (SODIUM CHLORIDE 0.9%) 250 ML Fentanyl Citrate (SUBLIMAZE) 50 MCG ONCE ONE IV (DC) Morphine Sulfate (morphine SULFATE) 4 MG NOW ONE IV (DC) Dextrose/Water (Dextrose 10% 1,000 mL) 1,000 ML ASDIR PRN IV (DC) Insulin Human Regular (MYXREDLIN 100 UNITS/NS 100ML) 100 ML ASDIR IV (DC ) Sodium Chloride (SODIUM CHLORIDE 0.9%) 1,000 ML Q5H IV Dextrose/Water (Dextrose 10% 1,000 mL) 1,000 ML ASDIR IV (DC) Magnesium Sulfate (MAGNESIUM SULFATE 2GM/SWFI 50ML) 50 ML ASDIR PRN IV ( DC) Magnesium Sulfate (MAGNESIUM SULFATE 4GM/SWFI 100ML) 100 ML ASDIR PRN IV (DC) Potassium Chloride (POTASSIUM CHLORIDE 20MEQ TAB.ER) 20 MEQ ASDIR PRN PO (DC) Potassium Chloride (K-MOSES 20 MEQ PACKET) 20 MEQ ASDIR PRN FEED-TUBE (DC) Potassium Phosphate (POTASSIUM PHOSPHATE) 15 MM ASDIR PRN IV (DC) Sodium Chloride (SODIUM CHLORIDE 0.9%) 250 ML Morphine Sulfate (morphine SULFATE) 4 MG X1ED STA IV (DC) Physical Exam General appearance: alert, awake, oriented Head/Eyes: atraumatic, normocephalic, PERRLA Neck: supple/no meningismus, no bruit/NL carotids, no JVD Cardiovascular: normal capillary refill, normal heart sounds, regular rate rhythm Respiratory: aerating well, symmetric expansion, no distress Abdomen: non-tender, normal bowel sounds, soft Genitourinary: no bladder distention, no flank pain Extremities: no calf tenderness, no clubbing, no cyanosis Musculoskeletal: no CVA tenderness, no muscle spasm Neuro/OYSTER TONGER: alert, oriented X 3, CNII-XII intact Results Findings/Data: Laboratory Tests 10/31 0326 Blood Gas Puncture Site iv ABG Hematocrit (33 - 45 %) 45 ABG Hemoglobin (11.0 - 15.0 G/DL) 15.3 H VBG pH (7.33 - 7.45) 7.265 L VBG pCO2 (43 - 47 mmHg) 42.4 L VBG pO2 (10 - 50 mmHG) 15.4 VBG HCO3 (22 - 27 MMOL/L) 19.3 L POC VBG Total CO2 (22 - 29) 20.6 L VBG O2 Saturation (60 - 80 %) 16.1 L VBG Base Excess (0 - +/ MMOL/L) -7.7 L VBG Temperature (F) 98.6 Sodium (134 - 147 mmol/L) 140 Potassium (3.4 - 5.0 mmol/L) 4.2 Chloride (100 - 108 mmol/L) 110 H Ionized Calcium (1.12 - 1.32 MMOL/L) 1.33 H Lactic Acid (0.9 - 1.7 mmol/l) 0.9 O2 Delivery Device Room Air Laboratory Tests 10/31 10/31 10/31 10/31 10/31 0830 0631 0507 0329 0329 Chemistry POC Glucose (70 - 110 MG/DL) 179 H 156 H Hemoglobin A1c (4.8 - 6.0 %A1C) 10.2 H 10.2 H Phosphorus (2.5 - 4.9 MG/DL) 2.2 L Magnesium (1.6 - 2.6 mg/dL) 2.00 10/31 10/31 10/31 0329 0326 0317 Chemistry Sodium (134 - 147 mEq/L) 138 Potassium (3.4 - 5.0 mEq/L) 3.3 L Chloride (100 - 108 mEq/L) 107 Carbon Dioxide (21 - 33 mEq/l) 19 L Anion Gap (0 - 20) 15 BUN (7 - 25 mg/dL) 12 Creatinine (0.6 - 1.3 mg/dL) 1.1 POC Creatinine (0.6 - 1.3 mg/dL) 0.8 Glomerular Filtr Rate (95 - 105) 62.0 L Glucose (77 - 141 mg/dL) 151 H POC Glucose (70 - 110 MG/DL) 184 H POC Glucose (mg/dL) (70 - 110 MG/DL) 163 H Calcium (8.0 - 10.5 mg/dL) 8.6 Total Bilirubin (0.0 - 1.0 mg/dL) 0.40 AST (8 - 34 IUnit/L) 17 ALT (10 - 49 IUnit/L) 19 Total Alk Phosphatase (20 - 125 IUnit/L) 71 Total Protein (5.7 - 8.2 g/dL) 7.5 Albumin (3.4 - 5.0 g/dL) 3.70 Laboratory Tests 10/31 0329 Hematology WBC (4.5 - 11.0 x10 3/uL) 10.2 RBC (3.54 - 5.02 x10 6/uL) 5.46 H Hgb (11.0 - 15.0 g/dL) 14.8 Hct (33.0 - 45.0 %) 43.5 MCV (81.0 - 99.0 fL) 79.7 L MCH (27.0 - 33.0 pg) 27.1 MCHC (33.0 - 37.0 g/dL) 34.0 RDW (11.5 - 14.5 %) 15.4 H Plt Count (150 - 400 x10 3/uL) 339 MPV (7.0 - 9.0 fL) 8.3 Neut % (Auto) (56.0 - 77.0 %) 58.6 Lymph % (Auto) (14.0 - 32.0 %) 30.2 [place] % (Auto) (4.8 - 9.0 %) 5.3 Eos % (Auto) (0.3 - 3.7 %) 5.0 H Baso % (Auto) (0.0 - 2.0 %) 0.6 Neut # (Auto) (2.0 - 7.6 x10 3/uL) 5.94 Lymph # (Auto) (1.0 - 3.8 x10 3/uL) 3.07 [place] # (Auto) (0.1 - 0.8 x10 3/uL) 0.54 Eos # (Auto) (0.0 - 0.2 x10 3/uL) 0.51 H Baso # (Auto) (0.0 - 0.2 x10 3/uL) 0.06 Abs Immat Gran (auto) (0.00 - 0.03 x10 3/uL) 0.03 Immature Gran % (0.0 - 2.0 %) 0.3 Nucleated RBC % (0 - 0 %) 0.0 Nucleated RBCs # (Man) (0.0 - 0.1 x10 3/uL) 0.00 Results: labs reviewed, vital signs reviewed, vital signs stable, current med profile rev'd Treatment Prophylaxis Treatment Prophylaxis Oxygen: room air Diagnosis, Assessment Plan Problem List/A P: 1. DKA (diabetic ketoacidosis) 2. Discitis 3. HYPOKALEMIA 4. HX OF DEPRESSION 5. HX OF ANXIETY 6. HX OF BIPOLAR Plan discussed with: patient, admitting physician, consultants, nurse Code Status/Resusc. Discussion Code status: full code Free Text DxA P Notes Free Text DxA P Notes: Plan: IMCU. Endocrine for DKA. She is off from Insulin, Anion gap is normal. Her electrolytes are better. Will start Lantus 15 unit and ISS. Diabetic diet. Pain meds. Antiemetics. Follow labs and replace as needed. continue home meds. ID consult for discitis and ABX. Neuro surgery consult for discitis. PT and OT Monitor. at 1225 at 1503 RPT #:[id number] END OF REPORT [facility] 2024-10-31 03:25:00 [facility] ([facility]) EMERGENCY PROVIDER REPORT REPORT#:[id number] REPORT STATUS: Signed DATE:10/31/24 TIME: 324 PATIENT: MARY GRACE CRAWLEY UNIT #: [id number] ROOM/BED: [place] [id number] : [birth year] AGE: 49 SEX:F PCP PHYS: No Primary or Family Physician SERVICE AUTHOR: Madhuri Partida DO REP SRV REP SRV TM: 032 * ALL edits or amendments must be made on the electronic/computer document * HPI-General Illness Free Text HPI Notes Free Text HPI Notes History of Present Illness: Patient presents to [facility] with back pain found to have discitis as well as elevated anion gap with acidosis thought to be in DKA. Started on insulin drip transferred here for further evaluation Review of Systems: Negative except noted in HPI Physical Exam: AOx4, NAD, well appearing, cooperative Head: NC, AT Neck: supple, no jvd Eyes: PERRL, EOMi, no icterus, no photophobia Resp: B/L BS, no wheezing, no rales, no rhonchi, no distress CV: RRR, nml cap refill, Abd: soft, NT, No rebound/guarding Back: No CVAT, no midline tenderness Ext: no pitting edema. FROM Skin: no lacerations. intact Neuro: 5/5x4, nonfocal, nml speech, cn 2-12 intact Psych: nml affect/mood with normal thought/cognition/judgment Differential Diagnosis: DKA, HHS, discitis, abscess Medical Decision Making: Will repeat labs to assess potassium before restarting insulin. Will administer additional pain dose. Will admit to ICU Disposition: Admit This documentation was created with voice recognition system. There may be some errors during voice transcribing. Please attempt to interpret General Initial Greet Date/Time 10/31/24 0320 Presentation Chief Complaint Back pain Past Medical History - Adult Stated Complaint DKA-INSULIN DRIP D5/DISCIT[facility] ICU Allergies Coded Allergies: No Known Allergies (02/28/24) Home Medications Active Scripts ONDANSETRON ODT (ZOFRAN ODT) 4 MG PO Q6H PRN PRN NAUSEA/VOMITING ONDANSETRON ODT (ZOFRAN ODT) 4 MG PO Q6H PRN PRN NAUSEA/VOMITING #15 TABS Prov: 02/28/24 Past Medical History: Reports: Depression/mood disorder, Diabetes mellitus. Additional Medical History ANXIETY, Bipolar Past Surgical History: Reports: Amputation (Lt bka). Physical Exam Vital Signs Vital Signs First Documented: Result Date Time Pulse Ox 98 10/31 0322 B/P 162/85 10/31 0322 O2 Delivery Room air 10/31 0322 Temp 98.6 10/31 0322 Pulse 106 10/31 0322 Resp 15 10/31 0322 B/P Mean 116 10/31 0327 Last Documented: Result Date Time Pulse Ox 98 10/31 0400 B/P 128/68 10/31 0400 B/P Mean 93 10/31 0400 Pulse 106 10/31 0400 Resp 13 10/31 0400 O2 Delivery Room air 10/31 0322 Temp 98.6 10/31 0322 Review of Vital Signs Reviewed Interpretation Diagnostics Lab Results Interpretation Results Laboratory Tests 10/31/24 0329: [Embedded Image Not Available] Laboratory Tests: 10/31 10/31 10/31 0329 0326 0317 Blood Gas Puncture Site iv ABG Hematocrit (33 - 45 %) 45 ABG Hemoglobin (11.0 - 15.0 G/DL) 15.3 H VBG pH (7.33 - 7.45) 7.265 L VBG pCO2 (43 - 47 mmHg) 42.4 L VBG pO2 (10 - 50 mmHG) 15.4 VBG HCO3 (22 - 27 MMOL/L) 19.3 L POC VBG Total CO2 (22 - 29) 20.6 L VBG O2 Saturation (60 - 80 %) 16.1 L VBG Base Excess (0 - +/ MMOL/L) -7.7 L VBG Temperature (F) 98.6 Sodium (134 - 147 mmol/L) 140 Potassium (3.4 - 5.0 mmol/L) 4.2 Chloride (100 - 108 mmol/L) 110 H Ionized Calcium (1.12 - 1.32 MMOL/L) 1.33 H Lactic Acid (0.9 - 1.7 mmol/l) 0.9 O2 Delivery Device Room Air Chemistry Sodium (134 - 147 mEq/L) 138 Potassium (3.4 - 5.0 mEq/L) 3.3 L Chloride (100 - 108 mEq/L) 107 Carbon Dioxide (21 - 33 mEq/l) 19 L Anion Gap (0 - 20) 15 BUN (7 - 25 mg/dL) 12 Creatinine (0.6 - 1.3 mg/dL) 1.1 POC Creatinine (0.6 - 1.3 mg/dL) 0.8 Glomerular Filtr Rate (95 - 105) 62.0 L Glucose (77 - 141 mg/dL) 151 H POC Glucose (70 - 110 MG/DL) 184 H POC Glucose (mg/dL) (70 - 110 MG/DL) 163 H Calcium (8.0 - 10.5 mg/dL) 8.6 Total Bilirubin (0.0 - 1.0 mg/dL) 0.40 AST (8 - 34 IUnit/L) 17 ALT (10 - 49 IUnit/L) 19 Total Alk Phosphatase (20 - 125 IUnit/L) 71 Total Protein (5.7 - 8.2 g/dL) 7.5 Albumin (3.4 - 5.0 g/dL) 3.70 Hematology WBC (4.5 - 11.0 x10 3/uL) 10.2 RBC (3.54 - 5.02 x10 6/uL) 5.46 H Hgb (11.0 - 15.0 g/dL) 14.8 Hct (33.0 - 45.0 %) 43.5 MCV (81.0 - 99.0 fL) 79.7 L MCH (27.0 - 33.0 pg) 27.1 MCHC (33.0 - 37.0 g/dL) 34.0 RDW (11.5 - 14.5 %) 15.4 H Plt Count (150 - 400 x10 3/uL) 339 MPV (7.0 - 9.0 fL) 8.3 Neut % (Auto) (56.0 - 77.0 %) 58.6 Lymph % (Auto) (14.0 - 32.0 %) 30.2 [place] % (Auto) (4.8 - 9.0 %) 5.3 Eos % (Auto) (0.3 - 3.7 %) 5.0 H Baso % (Auto) (0.0 - 2.0 %) 0.6 Neut # (Auto) (2.0 - 7.6 x10 3/uL) 5.94 Lymph # (Auto) (1.0 - 3.8 x10 3/uL) 3.07 [place] # (Auto) (0.1 - 0.8 x10 3/uL) 0.54 Eos # (Auto) (0.0 - 0.2 x10 3/uL) 0.51 H Baso # (Auto) (0.0 - 0.2 x10 3/uL) 0.06 Abs Immat Gran (auto) (0.00 - 0.03 x10 3/uL) 0.03 Immature Gran % (0.0 - 2.0 %) 0.3 Nucleated RBC % (0 - 0 %) 0.0 Nucleated RBCs # (Man) (0.0 - 0.1 x10 3/uL) 0.00 Re-Evaluation MDM Free Text MDM Notes Free Text MDM Notes Total critical care time 36 minutes. Total critical care time documented does not include time spent on separately billed procedures or the services of residents, students, nurses or physician assistants. I personally saw and examined the patient. I have reviewed all diagnostic interpretations and treatment plans as written. I was present for the tran portions of any procedures performed and the inclusive time noted in any critical care statement. Critical care time includes patient management by me, time spent at the patient's bedside, time to review labs and imaging results, discussing patient care, documentation in the medical record, and time spent with family or caregiver High probability of sudden, clinically significant deterioration in the patient' s condition required the highest level of my preparedness to intervene urgently. Services I provided to this patient in order to treat and/or prevent clinically significant deterioration that could result in severe debility or . Services included the following: Chart data review, reviewing nursing notes and/ or old charts, documentation time, library sales consultant medical collaborating regarding findings and treatment options, medication orders and management, direct patient care, reevaluations, vital sign assessment and ordering, interpreting the reviewing diagnostics studies/lab tests. ED Course Medication(s) Ordered Medication(s) Ordered: Central Nervous System Agents Sig/Drake Start time Last Medication Dose Route Stop Time Status Admin Magnesium Sulfate 50 ML ASDIR PRN 10/31 0345 AC IV 01/29 034 Magnesium Sulfate 100 ML ASDIR PRN 10/31 0345 AC IV 01/29 0344 Morphine Sulfate 4 MG X1ED STA 10/31 0335 DC IV 10/31 0336 Electrolytic, Caloric, And Terry Sig/Drake Start time Last Medication Dose Route Stop Time Status Admin Dextrose/Water 1,000 ML ASDIR 10/31 0345 AC IV 01/29 034 Potassium Chloride 20 MEQ ASDIR PRN 10/31 034 AC PO 01/29 034 Potassium Chloride 20 MEQ ASDIR PRN 10/31 034 AC FEED-TUBE 01/29 034 Potassium Phosphate 15 MM ASDIR PRN 10/31 034 AC Sodium Chloride 250 ML IV 01/29 034 Patient Discharge Departure Vital Signs/Condition Vital Signs First Documented: Result Date Time Pulse Ox 98 10/31 0322 B/P 162/85 10/31 0322 O2 Delivery Room air 10/31 0322 Temp 98.6 10/31 0322 Pulse 106 10/31 0322 Resp 15 10/31 0322 B/P Mean 116 10/31 0327 Last Documented: Result Date Time Pulse Ox 98 10/31 0400 B/P 128/68 10/31 0400 B/P Mean 93 10/31 0400 Pulse 106 10/31 0400 Resp 13 10/31 0400 O2 Delivery Room air 10/31 0322 Temp 98.6 10/31 0322 All vital signs available at the time of this entry have been reviewed. Clinical Impression Clinical Impression Primary Impression: Discitis Secondary Impressions: DKA (diabetic ketoacidosis) Disposition Decision Hospitalize Hosp Physician Name Claudine Davis MD Hosp Physician Hospitalist Request Time 326 Request Date 10/31/24 )( Accepts Hospitalization Yes )( Reason for Hospitalization Discitis, DKA )( Accepted Time 327 )( Accepted Date 10/31/24 Call Information will see patient, agrees with eval, agrees with plan at 0526 RPT #:[id number] END OF REPORT [facility] 2024-10-25 15:29:33 Forms faxed to [phone] Casanova RN [facility] 2024-10-25 14:13:38 Mary Grace Crawley is a 49 year old female [facility] regarding the forms faxed on 10/22/2024 rep states they have not received any forms asking if they can be resent to fax: [phone] thank you Lopez [facility] 2024-10-25 10:32:58 [place] missing information notification form placed in provider box. Bernal [facility] 2024-10-22 15:31:40 Form received [facility] Dexcom refill Request for last visit note ALVIN:09/27/2024 NOV: 12/10/2024 Note attached and faxed Chavarria RN [facility] 2024-10-17 08:23:32 ALVIN:09/27/2024 NOV:12/10/2024 Last note; Medication filled at appointment Singh RN [facility] 2024-10-08 16:50:38 Form received: DBVu PA: Dexcom G7 sensor Approved Coverage date: 10/05/2023- 08/21/2025 Will scan approval into chart. Chavarria RN [facility] 2024-10-05 16:51:06 Order sent to DME per insurance requirements to be processed through medical benefit Casanova RN [facility] 2024-10-05 16:40:44 Images from the original note were not included. Horner [facility] 2024-10-05 16:03:28 Refill: Dexcom G7 sensor ALVIN: 09/27/2024 NOV: 12/10/2024 Refill sent Chavarria RN [facility] 2024-10-05 13:53:16 Form received [facility] MIMI Junior APPROVED Approval Dates: 10/05/2024- 10/05/2025 Chavarria RN [facility] 2024-10-04 15:56:24 MIMI completed Tran [id number] Pending determination Casanova RN [facility] 2024-10-04 15:45:32 Images from the original note were not included. Horner [facility] 2024-10-04 08:52:40 Dexcom must be sent through [facility] for coverage through medical. Order sent to [facility] via DME Pt notified via MyChart IMEDIA EDUCATIONAL SPECIALIST Fran Casanova RN [facility] 2024-10-03 10:01:22 Can clinical staff please assist with this, pt needing a PA for a J Code. Bernal [facility] 2024-10-02 17:46:47 Mary Grace Crawley is a 49 year old female Patient calling in due to needing to get a PA with a J Code submitted through medical instead of pharmacy. Please assist with this request for the patient. Thank you. Will email forma to providers and clinic staff to assist with getting this completed. HOSPITAL Cindy Prince [facility] 2024-07-30 16:24:41 I called the patient to make sure that she is not using long-acting insulin while using OmniPod 5 Patient verbalized understanding she is using OmniPod 5 with a Dexcom G7 for now Karolyn Arceo MD Sap Analyst Division of Endocrinology [facility] 2024-07-30 16:21:36 Addended by: KAROLYN ARCEO MD on: 07/30/2024 04:21 PM Modules accepted: Orders [facility] 2024-07-30 16:21:24 Patient has 3 more refilled ordered on 02/2024 [facility] 2024-07-30 15:37:24 Routed to provider for approval of refill. IMEDIA EDUCATIONAL SPECIALIST Gisselle San RN [facility] 2024-07-30 15:27:04 Mary Grace Crawley is a 49 year old female Pt is returning a call regarding medication changes. Please advise [phone] Jang [facility] 2024-07-10 16:13:30 Received enrollment letter for Amrik to be mailed to clinic for 12 mos. IMEDIA EDUCATIONAL SPECIALIST Gisselle San RN [facility] 2024-07-09 11:55:54 Sent 06/28 file to [facility]. Requested auth for 2 month Ophthalmology follow up scheduled: 08/28/24. Cecy Argueta 07/09/2024 11:56 AM IMEDIA EDUCATIONAL SPECIALIST Cecy Argueta [facility] 2024-07-03 10:27:45 I was present with the resident at the time of this encounter on 07/03/24. I discussed the case with Herman Brasher PharmD Candidate 2024 ([facility] [employer] [facility] student) and agree with the assessment and plan. I have reviewed the progress note and I agree with the note as written. Patricia Magallon PharmD, BCACP Pharmacy Clinical Environmental Geologist- Endocrinology IMEDIA EDUCATIONAL SPECIALIST Patricia Magallon [facility] 2024-07-03 10:24:06 Images from the original note were not included. CLINICAL PHARMACY ENDOCRINOLOGY VISIT- 07/03/24 DATE: 07/03/24 Mary Grace Crawley is a 48 year old female referred to PharmD by Dr. Karolyn Arceo MD for medication management of type 2 diabetes At last visit, patient was instructed to: Start Humalog 6 units 3x/day before meals + SSI Omnipod starter kit orders were sent Continue Tresiba 34 units daily Continue Farxiga 10 mg daily At current clinical pharmacist visit, patient reported starting the Omnipod 9 days ago and will finish her 3rd pod today. Patient is very happy with the Omnipod and reports her sugars are doing well (see below). Patient reports good adherence to all medications with no s/sx of hypoglycemia. As patient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 orders. Richelle Lee 11/22/2023 3:48 PM Richelle Lee [facility] 2023-11-22 14:50:25 Patient is calling requesting orders for PT be faxed to [facility]. Leanne Veloz [facility] 2023-11-16 15:31:08 Worked 10/30 file. Sent LEFT WRIST MRI results to [facility] for their records. Ilana Cruz 11/16/2023 3:31 PM Ilana Cruz [facility] 2023-11-01 12:07:49 Name: Mary Grace Crawley : [birth year] DOS: 10.24.23 Specialty: ortho Scheduled follow up: 10.05.23 Orders placed: MRI left wrist -seen .07.15-need approval please , PT Requesting: Auth for order placed Laura Arguelles 11/01/2023 12:07 PM Laura Arguelles [facility] 2023-10-24 13:04:40 Attempted to call MOP but no answer and unable to LVM. Provider does not treat neuropathy and does not prescribe Lyrica. Richelle Lee 10/24/2023 1:05 PM IMEDIA EDUCATIONAL SPECIALIST Richelle Lee [facility] 2023-10-20 18:38:40 RX was sent to [facility] 2023-10-20 14:54:47 Patient's mother Freda is requesting to know if Dr. Beyer can prescribe Lyrica for neurorrhaphy pain. She states endocrinology sent to the wrong pharmacy. IMEDIA EDUCATIONAL SPECIALIST Leanne Veloz [facility] 2023-10-20 12:13:40 Pt has a voucher from [employer] that is for her pregabalin 100 mg capsule to pay for it and is expires today and pt needs it resend TODAY to the correct pharmacy Please contact Dr Wilks to have it sent over [id number] - [place] [address] [facility] [address] [facility] [id number] IMEDIA EDUCATIONAL SPECIALIST Denise Morales [facility] 2023-10-19 17:01:30 Mary Grace Crawley is a 48 year old female Pt stating the Rx for Lyrica was sent to the wrong pharmacy again. Please send to: [facility][id number] - [facility] [address] [facility] [address] [facility] [phone] [facility] 2023-10-19 15:14:10 Patient's lyrica sent to requested pharmacy. Received patient assistance paperwork from [place] [facility]. Provider will be in clinic to sign next Tuesday, 10/24. Patient will need to be seen to discuss request for Humalog sliding scale per provider. [facility] 2023-10-19 12:59:23 2.14.24 ortho file. Requesting auth for MRI wrisst referral and follow up appointment scheduled. Laura Arguelles 10/19/2023 1:00 PM IMEDIA EDUCATIONAL SPECIALIST Laura Arguelles [facility] 2023-10-19 12:15:12 Mary Grace Crawley is a 48 year old female Pt states that she wants it to go to [facility][id number] - [place], [place] - [address] AT [facility] [address] [facility] [phone] Please advise, thank you HOSPITAL Yulissa Davidson [facility] 2023-10-19 10:31:54 Lyrica was sent to pharmacy on 10/14/23 Patient need to be seen in clinic if starting humalog sliding scale is needed Shaye Wilks MD Division of Endocrinology and Metabolism [facility] 2023-10-19 08:19:51 Patient is asking for Humalog sliding scale for back up if blood sugars spike [facility] 2023-10-18 15:20:54 Pt came in handed [place] [facility] Medication [facility] Program foms to have filled out placed in provider box. IMEDIA EDUCATIONAL SPECIALIST Yessi Aly [facility] 2023-10-17 11:11:16 Mary Grace Crawley is a 48 year old female Patient calling in to check status of Rx for Humalog with a sliding scale, and patient would like her lyrica to go to [facility] [place]. Patient is requesting a call from nurse. Please advise [id number] [place] [address] AT [facility] [address] [facility] [phone] Hagenzman [facility] 2023-10-14 09:47:59 Mary Grace Crawley is a 48 year old female Patient calling in to check status, pt [facility] [place] [address] [facility] [address] [facility] [phone] Rob [facility] 2023-10-14 08:22:20 Rerouting for completion and closure. Tobar [facility] 2023-10-12 16:04:16 ALVIN 08/02/23 NOV 12/02/23 Please advise regarding Lyrica. Per ALVIN note: 2. Neuropathy due to type 2 diabetes mellitus Status: uncontrolled Recent left BKA Plan Continue pregabalin 100mg BID Lindsey LVN [facility] 2023-10-12 08:02:55 Rerouting for completion and closure. [facility] 2023-10-10 14:24:37 Pt calling asking if she can get an Rx for Humalog with a sliding scale. She is also asking if something can be prescribed for phantom limb syndrome like Lyrica. Callback [phone] She states it needs to go to [place] [facility] 2023-09-28 11:10:26 Sending to pharmacy Lindsey ENVIRONMENTAL REMEDIATION SPECIALIST [facility] 2023-09-28 09:53:57 Mary Grace Crawley is a 48 year old female Pt is calling requesting the marble installer supervisor for her dexcom. Please advise. [phone] (home) Beck [facility] 2023-09-26 12:52:23 Patient looked up G7 on internet and read where it does not require a separate transmitter. No further questions. Closing encounter Lindsey LVN [facility] 2023-09-25 14:22:31 Patient to ED left wrist pain. Requesting a MRI for her ganglion cyst. Surgeon told her she needed one. IMEDIA EDUCATIONAL SPECIALIST Jagdish Hoffman RN [facility] 2023-09-23 15:18:06 Mary Grace Crawley is a 48 year old female Pt is asking if the Dexcom 7 needs a transmitter. If so, she needs an Rx for it. [facility] #[id number] - [place], [place] - [address] AT [facility] [address] [facility] [phone] Bravo [facility] 2023-09-05 23:44:00 Pt provided with phone to call for a ride. Bajwa RN [facility] 2023-09-05 23:42:22 Pt requesting to leave AMA. ERP notified. PT counseled to remain, risk of leaving AMA including discussed with pt. Pt continued to decline further ER evaluation at this time. AMA papers signed,witnessed, and placed on patients chart. Pt left ambulatory. No ataxia noted, GCS 15, and A&Ox4. [facility] 2023-09-05 23:38:00 Pt expressed agitation to RN because of choi bed condition. Pt agitated because she was unable to sleep because of noise. Pt requested a room to watch TV and sleep. Pt educated on SI safety interventions and the need for her to remain in the SI choi bed. Pt requested for IV to be removed and to leave AMA. ERP notified. [facility] 2023-09-05 21:55:23 Patient report given to Kellen at [facility] in [place], [place]. [facility] 2023-09-05 21:55:00 Pt requesting Celebrex for phantom pain of L extremity. [facility] 2023-09-05 21:25:00 Exclusionary information faxed to [facility]. [facility] 2023-09-05 19:34:20 Pt requested phone to call mother. Phone provided to pt. [facility] 2023-09-05 19:23:11 Summary: SI Progress Note Problem: Suicide, Risk of Goal: Absence of self-harm Outcome: Progressing as expected [facility] 2023-09-05 19:17:29 Pt provided with water and coffee. [facility] 2023-09-05 18:23:56 Pt given phone to speak with [facility] rep. Hernandez RN [facility] 2023-09-05 17:49:06 Paged [facility] for screening. IMEDIA EDUCATIONAL SPECIALIST Jagdish Hoffman RN [facility] 2023-09-05 15:26:18 Suicide Risk - Assessment and Plan Davison: 1) Have you wished you were or could go to sleep and not wake up?: (P) Yes 2) Have you had thoughts of killing yourself?: (P) Yes 3) Have you been thinking about how you might kill yourself?: (P) Yes 3a) Describe: (P) cut my wrists 4) Suicidal ideation with some intent?: (P) No 5) Have you worked out the details of the plan AND intend to follow through?: (P) No 6) Suicidal Behavior or preparation for suicide?: (P) No Davison Score: Suggested risk level: (P) Moderate SAFE-T: Current and past psychiatric diagnoses: (P) Mood Disorder Presenting symptoms: (P) Hopelessness or despair;Anxiety and/or panic Family history: (P) No family history of psychiatric illness Activating Events: (P) Recent losses or other significant negative event(s) (legal, financial, etc) Precipitants / stressors: (P) Triggering events leading to humiliation, shame, and/or despair Protective factors: (P) Ability to cope with stress Access to Lethal Means: Does patient have access to a gun or access to guns?: (P) No Specific Questions of Thoughts, Plans, Intent: Frequency- how many times have you had these thought?: (P) Many times a day 2.Duration - When you have the thoughts, how long do they last?: (P) More than 8 hours/persistent or continuous 3.Controllability - could/can you stop thinking about killing yourself or wanting to if you want to? "Is it easy, a little hard, very hard, or are you unable?": (P) Can control thoughts with a lot of difficulty 4.Deterrents - are there things, anyone or anything (family, sabianism, pain of ) that have stopped you from wanting to or acting on thoughts of committing suicide?: (P) Deterrents definitely did not stop Reasons for ideation - What are the reasons you have for wanting to or kill yourself? Was it to end pain, stop the way you are feeling, or to get attention, or get revenge and reaction from others?: (P) Completely to end or stop the pain (you couldn't go on living with the pain or how you were feeling) Behavior Assessment: 1.Were there preparatory acts like buying pills, guns, giving things away, or writing suicide note?: (P) No 2.Was an attempt aborted or self - interrupted?: (P) No 3.Was an attempt interrupted by someone else?: (P) No 4.Was there an actual attempt?: (P) No 5.Is there non suicidal self injury? Cutting, biting, skin picking: (P) No 6.For youth: parents or guardians should be asked about thoughts, plans, behaviors, mood changes, etc : (P) Comments (n/a) 7.Is there homicidal ideation: if so, describe: (P) No Stratification: High Suicide Risk Moderate Suicide Risk Low Suicide Risk ?? Suicidal ideation with intent or intent with plan in past month (C-SSRS Suicidal Ideation #4 or #5) Or ?? Suicidal behavior within past 3 months (C-SSRS Suicidal Behavior) ?? Suicidal ideation with method, WITHOUT plan, intent or behavior in past month (C-SSRS Suicidal Ideation #3) Or ?? Suicidal behavior more than 3 months ago (C-SSRS Suicidal Behavior Lifetime) Or ?? Multiple risk factors and few protective factors ?? Wish to or Suicidal Ideation WITHOUT method, intent, plan or behavior (C-SSRS Suicidal Ideation #1 or #2) Or ?? Modifiable risk factors and strong protective factors Or ? No reported history of Suicidal Ideation or Behavior Location / Risk: Inpatient / High: Suicidal ideation with intent and with realistic plan and no protective factors in past month OR suicidal behavior within the past 3 months. Includes suicidal behavior as reason for admission. a. Mitigate the risk for suicide by instituting one-one monitoring, removing objects that pose a risk for self-harm, assessing objects brought into a room by visitors, using safe transportation procedures when moving patient to another part of the unit or another part of the hospital, and performing the checklist recommendations for a safe environment. b. Food tray in plastic or paper containers with plastic utensils (no knives or aluminum cans). c. Transfer to Inpatient Psychiatry facility/Psychiatry Consult once medically cleared. d. Follow-up determined by the inpatient Psychiatric facility. IMEDIA EDUCATIONAL SPECIALIST [facility] 2023-09-05 15:23:11 Problem: Suicide, Risk of Goal: Absence of self-harm 09/05/2023 152 by Jane Ashford RN Outcome: Progressing as expected 09/05/2023 1523 by Jane Ashford RN Outcome: Progressing as expected Ashford RN [facility] 2023-09-05 14:56:47 Patient states "I am having thoughts of self harm for a while now." Patient states that she was seen at [facility] approximately 1 month ago. Patient has a history of suicidal ideations. Good RN [facility]
[2025-05-10] MEDS ORDERED: MORPHINE 4 MG/ML SYR ONE (01:42)
[2025-05-10] MEDS ORDERED: ONDANSETRON 4 MG/2 ML VIAL ONE (01:42)
[2025-05-10 03:31] LABS: Absolute Lymphocytes (CBC) 1.5 K/uL (0.7-4.9); Hematocrit 41.6 % (36.0-45.0); Hemoglobin 14.0 g/dL (12.0-15.0); MCH 27.9 pg (27.0-35.0); MCHC 33.6 g/dL (32.0-36.0); MCV 83.1 fL (80-100); MPV 7.2 fL (7.6-11.3); Nucleated RBC Absolute Count 0.0 (0-0); Nucleated Red Blood Cells % 0.0 % (0-0); RBC Red Blood Cell Count 5.00 M/uL (3.86-4.86); White Blood Count 12.10 thou/uL (4.3-10.9)
[2025-05-10 03:42] LABS: ALT/SGPT 16 U/L (13-56); Albumin 3.0 g/dL (3.4-5.0); Albumin/Globulin Ratio 0.6 (1.1-1.8); Alkaline Phosphatase 105 U/L (45-117); Anion Gap 12.1 mEq/L (5.0-15.0); BUN Blood Urea Nitrogen 13 mg/dL (7-18); C-Reactive Protein 123.00 mg/L (<3.00); Globulin 4.9 g/dL (2.3-3.5); Glucose Level 395 mg/dL (74-106); Potassium 4.1 mEq/L (3.5-5.1)
[2025-05-10 03:51] LABS: AST/SGOT < 10 U/L (15-37)
[2025-05-10 03:52] LABS: Urine Microscopic Reflex YN NO UMIC
--- NOTE | 2025-05-10 04:26 | ER ---
Nurse's Notes [facility] Name: Selam Souza Age: 49 yrs Sex: Female : 1975 Arrival Date: 05/10/2025 Time: 01:01 Bed 5 Private MD: Diagnosis: Cellulitis of left lower limb Presentation: 05/10 01:27 Chief complaint: Patient states: pain, swelling, and fever to left BKA. Coronavirus vc1 screen: Client denies travel out of the [place] in the last 14 days. At this time, the client does not indicate any symptoms associated with coronavirus-19. Ebola Screen: Patient negative for fever greater than or equal to 101.5 degrees Fahrenheit, and additional compatible Ebola Virus Disease symptoms Patient denies exposure to infectious person. Patient denies travel to an Ebola-affected area in the 21 days before illness onset. No symptoms or risks identified at this time. Initial Sepsis Screen: Does the patient meet any 2 criteria? No. Patient's initial sepsis screen is negative. Does the patient have a suspected source of infection? No. Patient's initial sepsis screen is negative. Risk Assessment: Do you want to hurt yourself or someone else? Patient reports no desire to harm self or others. Onset of symptoms is unknown. 01:27 Method Of Arrival: Wheelchair vc1 01:27 Acuity: AUDREY 4 vc1 LOTUS NOTES ADMINISTRATOR: 01:38 LMP N/A - irregular; IUD, Not vc1 Historical: - Allergies: 01:35 No Known Allergies; vc1 - PMHx: 01:35 Hypertensive disorder; Diabetes mellitus; Hypercholesterolemia; neuropathy; Anxiety; vc1 Bipolar disorder; Depressive disorder; - PSHx: 01:35 Left BKA; vc1 - Immunization history:: Client reports having NOT received the Covid vaccine. - Infectious Disease History:: Denies. - Social history:: Smoking status: Patient denies any tobacco usage or history of. Screenin:12 [facility] ED Fall Risk Assessment (Adult) History of falling in the last 3 months, vc1 including since admission No falls in past 3 months (0 pts) Confusion or Disorientation No (0 pts) Intoxicated or Sedated No (0 pts) Impaired Gait Yes (1 pt) Mobility Assist Device Used Yes (1 pt) Altered Elimination No (0 pt) Score/Fall Risk Level 0 - 2 = Low Risk Oriented to surroundings, Maintained a safe environment, Educated pt \T\ family on fall prevention, incl call for assistance when getting out of bed, Assessed \T\ reinforced patient's understanding of fall precautions, Hourly rounding (assess needs \T\ fall precautionary measures) done. Abuse screen: Denies threats or abuse. Nutritional screening: No deficits noted. Tuberculosis screening: No symptoms or risk factors identified. Assessment: 02:29 General: Appears in no apparent distress. Behavior is calm, cooperative, appropriate ja5 for age. Pain: Complains of pain in left leg, pt LEFT BELOW THE KNEE AMPUTATION , PT STATED PAIN TO LEFT LOWER EXTREMITY Pain currently is 7 out of 10 on a pain scale. Quality of pain is described as aching. Neuro: No deficits noted. Mendoza Agitation-Sedation Scale (RASS): 0 - Alert and Calm Level of Consciousness is awake, alert, obeys commands, Oriented to person, place, time, situation, Appropriate for age Facial symmetry appears normal, Pupils are PERRLA, Pupil Size: 2. Cardiovascular: No deficits noted. Reports None Capillary refill < 3 seconds Clubbing of nail beds is absent JVD is absent Patient's skin is warm and dry. Respiratory: No deficits noted. Airway is patent Trachea midline Respiratory effort is even, unlabored, Respiratory pattern is regular, symmetrical. GI: No deficits noted. : No deficits noted. 02:29 Musculoskeletal: Amputation of left leg. [facility] 03:30 Reassessment: Patient appears in no apparent distress at this time. No changes from ja5 previously documented assessment. Patient and/or family updated on plan of care and expected duration. Pain level reassessed. Patient is alert, oriented x 3, equal unlabored respirations, skin warm/dry/pink. Neuro: No deficits noted. Mendoza Agitation-Sedation Scale (RASS): 0 - Alert and Calm Level of Consciousness is awake, alert, obeys commands, Oriented to person, place, time, situation, Appropriate for age. Cardiovascular: Capillary refill < 3 seconds Clubbing of nail beds is absent JVD is absent Patient's skin is warm and dry. Rhythm is sinus tachycardia MD MADE AWARE SEE ORDERS. Respiratory: No deficits noted. Airway is patent Trachea midline Respiratory effort is even, unlabored, Respiratory pattern is regular, symmetrical. 04:30 Reassessment: Patient appears in no apparent distress at this time. No changes from ja5 previously documented assessment. Patient and/or family updated on plan of care and expected duration. Pain level reassessed. Patient is alert, oriented x 3, equal unlabored respirations, skin warm/dry/pink. Patient states symptoms have improved. General: Appears in no apparent distress. Behavior is calm, cooperative, appropriate for age. Neuro: No deficits noted. Mendoza Agitation-Sedation Scale (RASS): 0 - Alert and Calm Level of Consciousness is awake, alert, obeys commands, Oriented to person, place, time, situation, Appropriate for age. Cardiovascular: No deficits noted. Capillary refill < 3 seconds Clubbing of nail beds is absent JVD is absent Patient's skin is warm and dry. Rhythm is sinus tachycardia. Respiratory: No deficits noted. Airway is patent Trachea midline Respiratory effort is even, unlabored, Respiratory pattern is regular, symmetrical. Vital Signs: 01:27 BP 151 / 86; Pulse 122; Resp 16; Temp 98.4; Pulse Ox 99% ; Weight 86.18 kg; Height 6 vc1 ft. 0 in. ; 02:29 BP 143 / 83; Pulse 110; Resp 16; Temp 98; Pulse Ox 99% on R/A; ja5 03:30 BP 142 / 84; Pulse 112; Resp 16; Pulse Ox 96% on R/A; Pain 5/10; ja5 04:30 BP 132 / 72; Pulse 112; Resp 16; Pulse Ox 96% on R/A; ja5 06:31 BP 132 / 87; Pulse 114; Resp 16; Pulse Ox 97% ; ja5 01:27 Body Mass Index 25.77 (86.18 kg, 182.88 cm) vc1 03:30 Pain Scale: Adult ja5 Vitals: 02:29 Cardiac Rhythm Assessment Sinus tach. ja5 [place]isbury Coma Score: 02:29 Eye Response: spontaneous(4). Motor Response: obeys commands(6). Verbal Response: ja5 oriented(5). Total: 15. 03:30 Eye Response: spontaneous(4). Motor Response: obeys commands(6). Verbal Response: ja5 oriented(5). Total: 15. 04:30 Eye Response: spontaneous(4). Motor Response: obeys commands(6). Verbal Response: ja5 oriented(5). Total: 15. ED Course: 01:04 Patient arrived in ED. mr 01:06 Basim Bailey [facility]. cp 01:07 Basim Toscano MD is Attending Physician. cp 01:28 Triage completed. vc1 01:37 Arm band placed on right wrist. vc1 02:29 Beba Pina is Primary Nurse. ja5 02:29 XRAY Femur LEFT In Process Unspecified. EDMS 02:29 XRAY Knee LEFT 3 view In Process Unspecified. EDMS 02:29 No apparent distress. ja5 02:29 Patient has correct armband on for positive identification. Bed in low position. Call ja5 light in reach. Side rails up X2. Provided Education on: PT CARE / MEDS/ LAB WORK. PT VERBALZIED UNDERSTANDING . Client placed on continuous cardiac and pulse oximetry monitoring. NIBP monitoring applied. rotary drill rig operator on. Pulse ox on. NIBP on. Door closed. Noise minimized. 02:29 No provider procedures requiring assistance completed. ja5 02:49 Inserted saline lock: 20 gauge in right wrist, using aseptic technique. Blood ja5 collected. Flushed with 10 mL NS. 02:49 Test, Urine Sent. ja5 02:49 UA Rfx Alden Cult if indicated Sent. ja5 02:49 Lactate w/ 2H reflex if indic. Sent. ja5 02:49 CRP Sent. ja5 02:50 CMP Sent. ja5 02:50 CBC with Diff Sent. ja5 04:25 Adalberto Gallardo MD is Hospitalizing Provider. cp 04:44 pt bg= 320. ja5 04:55 Blood Culture Adult (2) Sent. ja5 07:06 Report given to FLOOR 4 SBAR HANDOFF SENT AT THIS TIME. REPORT GIVEN TO BANDAR AMBROCIO IN ja5 THE ED . 07:44 Patient admitted, IV remains in place. ap3 Administered Medications: 02:49 Drug: morphine IVP or IV 4 mg IVP once over 4 mins Route: IVP; Infused Over: 4 mins; ja5 Site: right wrist; 02:49 Drug: Ondansetron IVP 4 mg IVP once; over 2 minutes Route: IVP; Site: right wrist; ja5 04:57 Drug: Insulin Regular Human Sub-Q 10 units Sub-Q once; if blood glucose over 300 tb4 {Co-Signature: alessandro (Beba Pina).} Route: Sub-Q; Site: right upper arm; 05:17 Drug: Cefepime IVPB 1 grams IVPB at 200 ml/hr once over 30 mins; (mix in NS 100 mL) ja5 Route: IVPB; Rate: 200 ml/hr; Infused Over: 30 mins; Site: right hand; Medication: 02:29 VIS not applicable for this client. ja5 Outcome: 04:26 Decision to Hospitalize by Provider. cp 04:44 Condition: good ja5 07:45 Patient left the ED. ap3 07:45 Admitted to Med/surg accompanied by tech, via stretcher, with chart, ap3 07:45 Instructed on the need for admit, Demonstrated understanding of instructions, Signatures: Dispatcher [employer] EDMS Stacey Ferraro, Reg Reg mr Basim Bailey, PARamin PAGisselle Van cp, RN RN ap3 Fany Mejia RN RN 1 Brittney Chavarria RN RN tb4 Beba Pina5 Beba Pina Corrections: (The following items were deleted from the chart) 07:58 07:57 Patient left the ED. ap3 ap3
--- NOTE | 2025-05-10 04:26 | EDPHYS ---
Physician Documentation [facility] Name: Selam Souza Age: 49 yrs Sex: Female : 1975 Arrival Date: 05/10/2025 Time: 01: Bed 5 Private MD: Basim Trevizo HPI: 05/10 01:35 This 49 yrs old Female presents to ER via Wheelchair with complaints of Leg Swelling, cp Leg Pain. 01:35 The patient presents with pain, that is acute, swelling. The complaints affect the cp amputation site of left bka. 01:35 Context: resulted from an unknown cause. Onset: The symptoms/episode began/occurred 2 cp day(s) ago. Associated signs and symptoms: Pertinent positives: fever, warmth. Treatment prior to arrival includes: no previous treatment. C[employer] EQUIPMENT: 01:38 LMP N/A - irregular; IUD, Not vc1 Historical: - Allergies: 01:35 No Known Allergies; vc1 - PMHx: 01:35 Hypertensive disorder; Diabetes mellitus; Hypercholesterolemia; neuropathy; Anxiety; vc1 Bipolar disorder; Depressive disorder; - PSHx: 01:35 Left BKA; vc1 - Immunization history:: Client reports having NOT received the Covid vaccine. - Infectious Disease History:: Denies. - Social history:: Smoking status: Patient denies any tobacco usage or history of. ROS: 01:40 Constitutional: Positive for fever, Negative for body aches, chills, poor PO intake, cp 01:40 Eyes: Negative for injury, pain, redness, and discharge, cp 01:40 Cardiovascular: Negative for chest pain, 01:40 Respiratory: Negative for cough, shortness of breath, wheezing, 01:40 Abdomen/GI: Negative for abdominal pain, vomiting, diarrhea, constipation, 01:40 Back: Negative for pain at rest, pain with movement, 01:40 MS/extremity: Positive for erythema, pain, swelling, tenderness, of the amputation site of left bka, 01:40 Neuro: Negative for altered mental status, dizziness, headache, syncope, weakness, 01:40 All other systems are negative, Exam: 01:45 Constitutional: The patient appears in no acute distress, alert, awake, cp non-diaphoretic, non-toxic, well developed, well nourished, afebrile 01:45 Head/Face: Normocephalic, atraumatic. cp 01:45 Eyes: Periorbital structures: appear normal, Conjunctiva: normal, no exudate, no injection, Sclera: no appreciated abnormality, Lids and lashes: appear normal, bilaterally, 01:45 ENT: External ear(s): are unremarkable, Nose: is normal, Mouth: Lips: moist, Oral mucosa: moist, Posterior pharynx: Airway: no evidence of obstruction, patent, 01:45 Neck: ROM/movement: is normal, is supple, without pain, no range of motions limitations, 01:45 Chest/axilla: Inspection: normal, :45 Cardiovascular: Rate: tachycardic, Rhythm: regular, Edema: is not appreciated, JVD: is not appreciated, :45 Respiratory: the patient does not display signs of respiratory distress, Respirations: normal, no use of accessory muscles, no retractions, labored breathing, is not present, Breath sounds: are clear throughout, no decreased breath sounds, no stridor, no wheezing, 01:45 Abdomen/GI: Inspection: abdomen appears normal, Palpation: abdomen is soft and non-tender, in all quadrants, 01:45 Back: pain, is absent, ROM is normal, :45 Musculoskeletal/extremity: Extremities: noted in the left bka: pain, swelling, tenderness, moderate erythema, skin intact, 01:45 Neuro: Orientation: to person, place \T\ time. Mentation: is normal, Vital Signs: 01:27 BP 151 / 86; Pulse 122; Resp 16; Temp 98.4; Pulse Ox 99% ; Weight 86.18 kg; Height 6 vc1 ft. 0 in. ; 02:29 BP 143 / 83; Pulse 110; Resp 16; Temp 98; Pulse Ox 99% on R/A; ja5 03:30 BP 142 / 84; Pulse 112; Resp 16; Pulse Ox 96% on R/A; Pain 5/10; ja5 04:30 BP 132 / 72; Pulse 112; Resp 16; Pulse Ox 96% on R/A; ja5 06:31 BP 132 / 87; Pulse 114; Resp 16; Pulse Ox 97% ; ja5 01:27 Body Mass Index 25.77 (86.18 kg, 182.88 cm) vc1 03:30 Pain Scale: Adult ja5 Heath Coma Score: 02:29 Eye Response: spontaneous(4). Motor Response: obeys commands(6). Verbal Response: ja5 oriented(5). Total: 15. 03:30 Eye Response: spontaneous(4). Motor Response: obeys commands(6). Verbal Response: ja5 oriented(5). Total: 15. 04:30 Eye Response: spontaneous(4). Motor Response: obeys commands(6). Verbal Response: ja5 oriented(5). Total: 15. MDM: 01:28 Medical Screening Exam initiated cp 04:30 Data reviewed: vital signs, nurses notes, lab test result(s), radiologic studies, plain cp films, and as a result, I will admit patient. 04:30 Differential diagnosis: sepsis, osteomyelitis, abscess, cellulitis. Management of cp patient was discussed with the following: Hospitalist: DR Gallardo will admit after discussion. I considered the following discharge prescriptions or medication management in the emergency department Medications were administered in the Emergency Department. See MAR. Care significantly affected by the following chronic conditions: Diabetes, Hypertension. Counseling: I had a detailed discussion with the patient and/or guardian regarding the historical points, exam findings, and any diagnostic results supporting the discharge/admit diagnosis, lab results, radiology results, recommendation to admit for IV antibiotics. Response to treatment: the patient's symptoms have mildly improved after treatment. 05:20 ED course: consult with general surgery, DR Ford, who will consult after discussion. 05/10 01:31 Order name: CBC with Diff; Complete Time: 04:06 05/10 04:06 Interpretation: Normal except: WBC 12.10; RBC 5.00; PLT 422; MPV 7.2; LATRICE% 79.5; LYM% cp 12.7; NEUT A 9.7. 05/10 01:31 Order name: CMP; Complete Time: 04:06 05/10 04:07 Interpretation: Normal except: NA 130; GLUC 395; AST < 10; ALB 3.0; GLOB 4.9; A/G 0.6. 05/10 01:31 Order name: CRP; Complete Time: 04:06 05/10 04:07 Interpretation: Abnormal: C-REACTIVE PROT 123.00. 05/10 01:31 Order name: Lactate w/ 2H reflex if indic.; Complete Time: 04:06 05/10 01:32 Order name: UA Rfx Alden Cult if indicated; Complete Time: 04:06 05/10 04:07 Interpretation: Normal except: Urine SG > 1.030; UGLUC 4+ (Over); UKET 3+. 05/10 01:32 Order name: Test, Urine; Complete Time: 04:06 05/10 04:17 Order name: Blood Culture Adult (2) cp 05/10 04:55 Order name: Glucose, Ancillary Testing; Complete Time: 05:40 EDMS 05/10 05:57 Order name: Basic Metabolic Panel EDMS 05/10 05:57 Order name: Basic Metabolic Panel EDMS 05/10 05:57 Order name: CBC with Automated Diff EDMS 05/10 05:57 Order name: CBC with Automated Diff EDPA 05/10 01:31 Order name: XRAY Femur LEFT; Complete Time: 05:40 cp 05/10 01:31 Order name: XRAY Knee LEFT 3 view; Complete Time: 05:40 05/10 05:57 Order name: CONS Physician Consult EDPA 05/10 01:31 Order name: IV; Complete Time: 02:50 cp 05/10 01:31 Order name: Saline Lock; Complete Time: 02:50 cp Administered Medications: 02:49 Drug: morphine IVP or IV 4 mg IVP once over 4 mins Route: IVP; Infused Over: 4 mins; ja5 Site: right wrist; 02:49 Drug: Ondansetron IVP 4 mg IVP once; over 2 minutes Route: IVP; Site: right wrist; ja5 04:57 Drug: Insulin Regular Human Sub-Q 10 units Sub-Q once; if blood glucose over 300 tb4 {Co-Signature: ja5 (Beba Pina).} Route: Sub-Q; Site: right upper arm; 05:17 Drug: Cefepime IVPB 1 grams IVPB at 200 ml/hr once over 30 mins; (mix in NS 100 mL) ja5 Route: IVPB; Rate: 200 ml/hr; Infused Over: 30 mins; Site: right hand; Disposition Summary: 05/10/25 04:26 Hospitalization Ordered Notes: Hospitalization Status: Inpatient Admission cp Provider: Adalberto Gallardo cp Location: Telemetry/[facility] (Inpatient) cp Condition: Stable cp Problem: new cp Symptoms: have improved cp Bed/Room Type: Standard cp Room Assignment: 427(05/10/25 06:18) eb Diagnosis - Cellulitis of left lower limb cp Forms: - Medication Reconciliation Form cp - SBAR form cp - Leadership Thank You Letter cp Addendum: 05/13/2025 11:35 Co-signature as Attending Physician, Basim Toscano MD I agree with the assessment and c de león plan of care. Signatures: Dispatcher [employer] EDPA Basim Toscano MD MD cha Page, Corey, PA-C PA-C cp Juana Rodriges Vanessa RN RN vc1 Brittney Chavarria RN RN tb4 Beba Pina5 Beba Pina5 Corrections: (The following items were deleted from the chart) 05/10 06:18 04:26 cp eb
[2025-05-10] MEDS ORDERED: INSULIN REGULAR (HUMAN) 100 UNIT/ML ONE (04:48)
[2025-05-10] MEDS ORDERED: CEFEPIME 1 GM/VIAL ONE (05:26)
[2025-05-10] MEDS ORDERED: NA CHLORIDE 0.9% 100 ML ONE (05:26)
--- NOTE | 2025-05-10 05:33 | RAD REPORT ---
EXAM: XR Left Knee, 3 Views CLINICAL HISTORY: PAIN TECHNIQUE: Three views of the left knee. COMPARISON: No relevant prior studies available. FINDINGS: Bones/joints: Prior below-knee amputation. Well-corticated osseous margins. No acute fracture. No dislocation. Soft tissues: Subtle rounded area of lucency within the soft tissues at the level of the stump. Vasculature: Atherosclerotic disease. IMPRESSION: 1. Subtle rounded area of lucency within the soft tissues at the level of the stump. This may be ar tifactual. If concern for soft tissue infection, consider contrast-enhanced CT for further evaluation. 2. No osseous destruction or erosion. Electronically signed by: Jesse Woodard MD 05/10/2025 03:31 AM CDT Due to temporary technical issues with the PACS/[employer] reporting system, reports are being donovan d by the in-house radiologist without review as a courtesy to ensure prompt reporting the interpreting radiologist is fully responsible for the content of the report. Transcribed Date/Time: 05/10/2025 5:33 AM
--- NOTE | 2025-05-10 05:33 | RAD REPORT ---
EXAM: XR Left Femur, 2 Views CLINICAL HISTORY: PAIN TECHNIQUE: Frontal and lateral views of the left femur. COMPARISON: No relevant prior studies available. FINDINGS: Bones/joints: Prior below-knee amputation. Well-corticated osseous margins. No acute fracture. No dislocation. Soft tissues: Subtle rounded area of lucency within the soft tissues at the level of the stump. Vasculature: Atherosclerotic disease. IMPRESSION: 1. Subtle rounded area of lucency within the soft tissues at the level of the stump. This may be ar tifactual. If concern for soft tissue infection, consider contrast-enhanced CT for further evaluation. 2. No osseous destruction or erosion. Electronically signed by: Jesse Woodard MD 05/10/2025 03:31 AM CDT Due to temporary technical issues with the PACS/[employer] reporting system, reports are being donovan d by the in-house radiologist without review as a courtesy to ensure prompt reporting the interpreting radiologist is fully responsible for the content of the report. Transcribed Date/Time: 05/10/2025 5:33 AM
[2025-05-10] MEDS ORDERED: ONDANSETRON 4 MG/2 ML VIAL IV PRN (05:52)
[2025-05-10] MEDS ORDERED: ACETAMINOPHEN 325 MG TABLET PO PRN (05:52)
--- NOTE | 2025-05-10 05:52 | P.HP ---
Certification for Inpatient Patient admitted to: Inpatient With expected LOS: >2 Midnights Practitioner: I am a practitioner with admitting privileges, knowledge of patient current condition, hospital course, and medical plan of care. Services: Services provided to patient in accordance with Admission requirements found in Title 42 Section 412.3 of the Code of Federal Regulations Patient History Date of Service: 05/10/25 Reason for admission: Cellulitis History of Present Illness: 49-year-old female with past medical history of diabetes, hypertension, hyperlipidemia, neuropathy, anxiety, bipolar disorder, depression, peripheral vascular disease who had left BKA amputation previously brought to ER with pain and swelling on the left BKA stump. Patient complains of pain and swelling and redness which started 2 to 3 days ago and has been progressively getting worse. No fever or chills. No history of trauma. Patient has been using orthotics which is ill fitting. Denies any nausea vomiting or diarrhea. Patient was assessed in the ERadmitted for further management of cellulitis Home medications list reviewed: Yes - Past Medical/Surgical History Past Medical History: Reviewed- Non-Contributory -: Diabetes, hypertension, hyperlipidemia Past Surgical History: Reviewed- Non-Contributory -: BKA left - Social History Smoking Status: Never smoker Review of Systems 10-point ROS is otherwise unremarkable Physical Examination - Vital Signs Temperature: 97.8 F Blood Pressure: 142/76 Pulse: 78 Respirations: 18 Pulse Ox (%): 94 - Physical Exam General: Alert, In no apparent distress, Oriented x3 HEENT: Atraumatic, Normocephalic Neck: Supple Respiratory: Clear to auscultation bilaterally, Normal air movement Cardiovascular: Regular rate/rhythm, Normal S1 S2 Capillary refill: <2 Seconds Gastrointestinal: Soft and benign, W/out hepatosplenomegaly Musculoskeletal: No clubbing, Erythema, Tenderness, Warmth Integumentary: No rashes, Tenderness/swelling, Erythema, Warmth Neurological: Other (Alert awake nonfocal) Lymphatics: No axilla or inguinal lymphadenopathy - Studies Laboratory Data (last 24 hrs) 05/10/25 05/10/25 02:45 02:45 WBC 12.10 H Hgb 14.0 Hct 41.6 Plt Count 422 H Sodium 130 L Potassium 4.1 BUN 13 Creatinine 0.66 Glucose 395 H Total Bilirubin 0.4 AST < 10 L ALT 16 Alkaline Phosphatase 105 Assessment and Plan - Plan Left BKA stump cellulitis Pain control Started on IV antibiotic Will obtain cultures Change antibiotic as per sensitivity X-ray findings noted Will consult surgery Elevated CRP found Leukocytosis present Will get CBC in a.m. Hypertension Antihypertensives titrated Continue home medications and titrate as needed Hyperlipidemia Continue statin Diabetes Insulin sliding scale Accu-Chek before every meal and at bedtime Hyponatremia IV hydration Monitor electrolytes and replace accordingly Depression Anxiety Continue home medications and titrate as needed. GI/DVT prophylaxis Advanced directive full code Discharge Plan: Home Plan to discharge in: 48 Hours - Advance Directives Does patient have a Living Will: No Does patient have a Durable POA for Healthcare: No - Code Status/Comfort Care Code Status: Full Code Time Spent Managing Pts Care (In Minutes): 48
[2025-05-10] MEDS: VANCOMYCIN 1 GM in NA CHLORIDE 0.9% 250 ML IVPB SCH (05:56)
[2025-05-10] MEDS ORDERED: GLUCAGON 1 MG/VIAL IM PRN (05:57)
[2025-05-10] MEDS ORDERED: D10W 125 ML IV PRN (05:57)
[2025-05-10] MEDS: NA CHLORIDE 0.9% 1,000 ML IV SCH (06:00)
[2025-05-10] MEDS ORDERED: NA CHLORIDE 0.9% 250 ML ONE (06:45)
[2025-05-10] MEDS ORDERED: MORPHINE 2 MG/ML SYR ONE (06:45)
[2025-05-10] MEDS ORDERED: VANCOMYCIN 1 GM/VIAL ONE (06:45)
[2025-05-10] MEDS ORDERED: NA CHLORIDE 0.9% 1,000 ML ONE (06:45)
[2025-05-10] MEDS: MORPHINE 2 MG/ML SYR IV PRN (07:00)
[2025-05-10] MEDS: ENOXAPARIN 40 MG/0.4 ML SQ SCH (10:31)
[2025-05-10] MEDS: INSULIN REGULAR (HUMAN) 100 UNIT/ML SQ SCH (10:31)
[2025-05-10] MEDS: CEFTRIAXONE 2,000 MG in NA CHLORIDE 0.9% 100 ML IV SCH (10:32)
[2025-05-10] MEDS: VANCOMYCIN 500 MG in NA CHLORIDE 0.9% 100 ML IVPB ONE (10:32)
[2025-05-10] MEDS: MUPIROCIN 2% OINT 22GM TUBE TOP SCH (10:33)
[2025-05-10] MEDS: HYDROCODONE/APAP 5/325 MG TAB PO PRN (14:20)
[2025-05-10] MEDS: VANCOMYCIN 1.5 GM in NA CHLORIDE 0.9% 500 ML IVPB SCH (21:02)
[2025-05-11 07:51] LABS: Absolute Lymphocytes (CBC) 1.7 K/uL (0.7-4.9); Hematocrit 37.9 % (36.0-45.0); Hemoglobin 13.1 g/dL (12.0-15.0); MCH 28.5 pg (27.0-35.0); MCHC 34.5 g/dL (32.0-36.0); MCV 82.5 fL (80-100); MPV 7.3 fL (7.6-11.3); Nucleated RBC Absolute Count 0.0 (0-0); Nucleated Red Blood Cells % 0.0 % (0-0); RBC Red Blood Cell Count 4.60 M/uL (3.86-4.86); White Blood Count 7.10 thou/uL (4.3-10.9)
[2025-05-11 08:10] LABS: Anion Gap 10.6 mEq/L (5.0-15.0); BUN Blood Urea Nitrogen 9.0 mg/dL (7-18); Glucose Level 393.0 mg/dL (74-106); Potassium 3.6 mEq/L (3.5-5.1)
[2025-05-12 04:35] VITALS: BMI 25.9
--- NOTE | 2025-05-13 09:26 | RAD REPORT ---
EXAMINATION: Lower Extremity W/ Cont CLINICAL INDICATION: Female, 49 years old.left lower extremity abscess v/osteomyelitis TECHNIQUE: CT above extremity was performed with contrast. Reformats were performed. One or more of t he following dose reduction techniques were used: Automated exposure control, adjustment of the mA and/or kV according to patient size, and/or iterative reconstruction. Unless otherwise specified, inc idental findings do not require dedicated imaging follow-up. [id number]. COMPARISON: Radiograph 05/10/2025 FINDINGS: Surgical changes from below the knee amputation. Skin thickening as well as a tiny wound anteriorly a long the stump. This could reflect a cellulitis. Phlegmon versus early abscess formation measuring 10 x 10 mm within the superficial soft tissues at this location. See image 105, series 202. Nonlocula louise subcutaneous fluid present at the distal stump which is separate from the area of concern.. No soft tissue gas. No evidence of underlying osteomyelitis. IMPRESSION: Suspected cellulitis along the midline anterior aspect of the stump. Subjacent phlegmon versus early abscess formation measuring approximately 10 x 10 mm within the superficial soft tissues. No evidence of osteomyelitis. No soft tissue gas.
[2025-05-13 09:33] LABS: Absolute Lymphocytes (CBC) 1.8 K/uL (0.7-4.9); Hematocrit 37.8 % (36.0-45.0); Hemoglobin 13.1 g/dL (12.0-15.0); MCH 28.3 pg (27.0-35.0); MCHC 34.5 g/dL (32.0-36.0); MCV 81.9 fL (80-100); MPV 6.2 fL (7.6-11.3); Nucleated RBC Absolute Count 0.0 (0-0); Nucleated Red Blood Cells % 0.0 % (0-0); RBC Red Blood Cell Count 4.61 M/uL (3.86-4.86); White Blood Count 6.90 thou/uL (4.3-10.9)
[2025-05-13 09:52] LABS: ALT/SGPT < 14 U/L (13-56); AST/SGOT < 10 U/L (15-37); Albumin 2.5 g/dL (3.4-5.0); Albumin/Globulin Ratio 0.6 (1.1-1.8); Alkaline Phosphatase 72 U/L (45-117); Anion Gap 9.4 mEq/L (5.0-15.0); BUN Blood Urea Nitrogen 3 mg/dL (7-18); Globulin 4.0 g/dL (2.3-3.5); Glucose Level 237 mg/dL (74-106); Potassium 3.4 mEq/L (3.5-5.1)
[2025-05-13] MEDS: COLLAGENASE TOP ONE (10:51)
[2025-05-13] MEDS ORDERED: ONDANSETRON 4 MG/2 ML VIAL ONE (11:13)
[2025-05-13] MEDS ORDERED: LIDOCAINE 2% MPF 5 ML VIAL ONE (11:13)
[2025-05-13] MEDS ORDERED: MIDAZOLAM HCL 2 MG/2 ML INJ ONE (11:14)
[2025-05-13] MEDS ORDERED: FENTANYL CITR 100 MCG/2 ML ONE (11:15)
--- NOTE | 2025-05-13 12:20 | P.PN ---
Date of Service: 05/13/25 Subjective: I&D left leg today. No fevers or chills Subjective: I&D with surgery today. Noted for elevated blood pressures overnight. Tachycardic. No fevers and chills Review of Systems 10-point ROS is otherwise unremarkable Physical Examination - Vital Signs Temperature: 97.8 F Blood Pressure: 142/76 Pulse: 78 Respirations: 18 Pulse Ox (%): 94 - Physical Exam General: Alert, In no apparent distress, Oriented x3 HEENT: Atraumatic, Normocephalic Neck: Supple Respiratory: Clear to auscultation bilaterally, Normal air movement Cardiovascular: Regular rate/rhythm, Normal S1 S2 Capillary refill: <2 Seconds Gastrointestinal: Soft and benign, W/out hepatosplenomegaly Musculoskeletal: No clubbing, Erythema, Tenderness, Warmth Integumentary: No rashes, Tenderness/swelling, Erythema, Warmth Neurological: Other (Alert awake nonfocal) Lymphatics: No axilla or inguinal lymphadenopathy - Studies Laboratory Data (last 24 hrs) 05/10/25 05/10/25 02:45 02:45 WBC 12.10 H Hgb 14.0 Hct 41.6 Plt Count 422 H Sodium 130 L Potassium 4.1 BUN 13 Creatinine 0.66 Glucose 395 H Total Bilirubin 0.4 AST < 10 L ALT 16 Alkaline Phosphatase 105 Assessment and Plan 05/13 - I&D of left BKA stump by Dr. Ford - Continue pain control - Leukocytosis result - Continue Vanco and Rocephin - Continue sliding scale insulin - Pain control with morphine and [place] Left BKA stump cellulitis Pain control Started on IV antibiotic Will obtain cultures Change antibiotic as per sensitivity X-ray findings noted Will consult surgery Elevated CRP found Leukocytosis present Will get CBC in a.m. Hypertension Antihypertensives titrated Continue home medications and titrate as needed Hyperlipidemia Continue statin Diabetes Insulin sliding scale Accu-Chek before every meal and at bedtime Hyponatremia IV hydration Monitor electrolytes and replace accordingly Depression Anxiety Continue home medications and titrate as needed. GI/DVT prophylaxis Advanced directive full code Discharge Plan: Home Plan to discharge in: 48 Hours - Advance Directives Does patient have a Living Will: No Does patient have a Durable POA for Healthcare: No - Code Status/Comfort Care Code Status: Full Code I spent a total of 35 minutes on this patient encounter. This time included reviewing the chart, obtaining history, performing an exam, counseling the patient/family, coordinating care, and documenting in the medical record
--- NOTE | 2025-05-13 12:58 | P.OP ---
Preoperative diagnosis: LEFT BKA abscess Postoperative diagnosis: LEFT BKA abscess Primary procedure: Incision and Drainage of LEFT BKA abscess Anesthesia: GETA + Local Estimated blood loss: <5cc Specimen: Cultures, debridement tissues Findings: ~ 1.5 x 1.0 x 1.0 cm abscess Complications: None Transferred to: Recovery Room Condition: Good
[2025-05-13] MEDS: LIDOCAINE HCL/EPINEPHRINE 20 ML MDV ONE (13:17)
[2025-05-13] MEDS: NA CHLORIDE 0.9% 1,000 ML ONE (13:45)
[2025-05-13 13:48] VITALS: O2SAT 97
[2025-05-13] MEDS: POTASSIUM CL SA 10 MEQ TAB PO ONE (15:36)
--- NOTE | 2025-05-13 18:35 | CON ---
Date of Consultation: 05/11/2025 Brief Hpi: The patient is a 49-year-old female with past medical history of hypertension, diabetes, hyperlipidemia, neuropathy, anxiety, bipolar disorder, depression, peripheral vascular disease who de león d a left BKA previously at another facility. She has stump issues. She had been attempting to walk on her prosthetic and noticed that the prosthetic was not properly fitted and as such, she continued to have an area of abrasion which ultimately broke down causing redness, cellulitis, and as such, she came to the emergency room with the above-stated complaints. Past Medical History: Significant for above. Past Surgical History: As above. Review of Systems: Ten-point review of systems other than HPI, denies. Social History: She denies smoking, alcohol, or recreational drug use. Physical Examination: General: She is awake, alert, and oriented. Psychiatric: Appropriate and conversive. HEENT: She is normocephalic. Sclerae are anicteric. Mucous membranes are moist. Oropharynx is rosetta ar. Neck: Supple without JVD. Chest: Normal to expansion and excursion. Cardiovascular: Regular rate and rhythm. Pulmonary: Clear to auscultation bilaterally. Abdomen: Soft. Extremities: Focused examination of lower extremity, she has a left lower extremity BKA site with so me redness and cellulitis at the tip. There are no obvious drainable collections at this time; howev er, there is an area of softness of this area concerning for developing abscess and phlegmonous howe es. The remainder of the examination is unremarkable. Laboratory Data: She had a femur x-ray and a knee x-ray performed on 05/10 officially read as subtle round area of lucency. The soft tissues at the level of stump may be artifactual. No osseous destr uction is appreciated. She had a femur x-ray as well on 05/10/2025, officially read as the same as t he previous x-ray. Her laboratory exam revealed a white blood cell count of 12.1, hemoglobin is 14.0 , hematocrit 41.6, and platelet count was 242. Sodium 135, potassium 3.6, chloride 103, carbon dioxi de 25, BUN 9, creatinine 0.5, glucose was 393. Assessment And Plan: This is a 49-year-old female who comes in with below-knee amputation cellulitis , possible early infection and possible fluid collection and developing. 1. IV fluid hydration. 2. Antibiotic coverage. 3. Local wound care with mupirocin cream, wraps elevation. 4. I have explained the risks, benefits, and alternatives of nonoperative versus operative management . We will attempt nonoperative management at first; however, if this develops into an abscess or harper inable collection, I have explained the risks, benefits, and alternatives of incision, drainage, and debridement of this area including but not limited to bleeding, infection, damage to surrounding tiss ues, need for further operative procedures. The patient displayed understanding of the above stated plan and agreed to proceed as indicated. Thank you for this interesting consult. MAGALYS/PHYLICIA Voice ID: [id number] Report ID: [id number]
--- NOTE | 2025-05-13 19:46 | OP ---
Date of Procedure: 05/13/2025 Surgeon: Tanvir Ford MD, Preoperative Diagnosis: Left oisbu-ixx-omrp amputation abscess. Postoperative Diagnosis: Left mbijd-yss-[id number] amputation abscess. Procedure Performed: Incision and drainage of left rgkkx-say-[id number] amputation abscess with debridemen t. Anesthesia: General endotracheal plus local, 1% lidocaine with epinephrine. Estimated Blood Loss: Less than 5 cc. Specimens: Sent for both culture, aerobic and anaerobic extrication in addition to debridement tissu e. Findings: Approximately 1.5 x 1.0 x 1.0 cm abscess. Complications: None. Disposition: The patient was transferred to recovery room in good condition. Procedure In Detail: After informed consent was obtained, the patient was brought to the operating r oom, prepped and draped in the usual sterile fashion. After adequate anesthesia was achieved, I made an elliptical incision overlying an area cellulitis of the left tip of the BKA site, where previous incision was noted inferiorly, this was more anteriorly along the tibia. At this point, the abscess material was appreciated. This was cultured both aerobic and anaerobic speciation. All nonviable ti ssue was removed using a combination of sharp dissection predominantly and electrocautery. The area was copiously irrigated. Minimal hemostasis was required to achieve hemostasis with electrocautery. The area was copiously irrigated once again and packed with Vashe-soaked plain gauze and sterile jimbo ssing was placed over top. The patient tolerated the procedure without incident or complication and transferred to PACU in good condition. All counts were correct at the end of the case. MAGALYS/PHYLICIA Voice ID: [id number] Report ID: [id number]
[2025-05-14 09:46] LABS: Absolute Lymphocytes (CBC) 2.1 K/uL (0.7-4.9); Hematocrit 41.3 % (36.0-45.0); Hemoglobin 14.1 g/dL (12.0-15.0); MCH 28.0 pg (27.0-35.0); MCHC 34.1 g/dL (32.0-36.0); MCV 82.3 fL (80-100); MPV 6.1 fL (7.6-11.3); Nucleated RBC Absolute Count 0.0 (0-0); Nucleated Red Blood Cells % 0.1 % (0-0); RBC Red Blood Cell Count 5.02 M/uL (3.86-4.86); White Blood Count 7.10 thou/uL (4.3-10.9)
[2025-05-14 10:05] LABS: ALT/SGPT 29.0 U/L (13-56); AST/SGOT 28.0 U/L (15-37); Albumin 2.8 g/dL (3.4-5.0); Albumin/Globulin Ratio 0.6 (1.1-1.8); Alkaline Phosphatase 76.0 U/L (45-117); Anion Gap 8.9 mEq/L (5.0-15.0); BUN Blood Urea Nitrogen 5.0 mg/dL (7-18); Globulin 4.5 g/dL (2.3-3.5); Glucose Level 270.0 mg/dL (74-106); Potassium 3.9 mEq/L (3.5-5.1)
--- NOTE | 2025-05-14 13:35 | P.PN ---
Date of Service: 05/14/20 Subjective: No new complaints. Feeling better overall. Denies fevers and chills. She rates her pain at a 6 out of 10 Review of Systems 10-point ROS is otherwise unremarkable Physical Examination - Vital Signs Temperature: 97.8 F Blood Pressure: 142/76 Pulse: 78 Respirations: 18 Pulse Ox (%): 94 - Physical Exam General: Alert, In no apparent distress, Oriented x3 HEENT: Atraumatic, Normocephalic Neck: Supple Respiratory: Clear to auscultation bilaterally, Normal air movement Cardiovascular: Regular rate/rhythm, Normal S1 S2 Capillary refill: <2 Seconds Gastrointestinal: Soft and benign, W/out hepatosplenomegaly Musculoskeletal: No clubbing, Erythema, Tenderness, Warmth Integumentary: No rashes, Tenderness/swelling, Erythema, Warmth Neurological: Other (Alert awake nonfocal) Lymphatics: No axilla or inguinal lymphadenopathy - Studies Laboratory Data (last 24 hrs) 05/10/25 05/10/25 02:45 02:45 WBC 12.10 H Hgb 14.0 Hct 41.6 Plt Count 422 H Sodium 130 L Potassium 4.1 BUN 13 Creatinine 0.66 Glucose 395 H Total Bilirubin 0.4 AST < 10 L ALT 16 Alkaline Phosphatase 105 Assessment and Plan 05/14 - Doing well - PT/OT eval - Labs reviewed - Appreciate general surgery recommendations - Continue pain control - May need home health versus correction placement 05/13 - I&D of left BKA stump by Dr. Ford - Continue pain control - Leukocytosis result - Continue Vanco and Rocephin - Continue sliding scale insulin - Pain control with morphine and [place] Left BKA stump cellulitis Pain control Started on IV antibiotic Will obtain cultures Change antibiotic as per sensitivity X-ray findings noted Will consult surgery Elevated CRP found Leukocytosis present Will get CBC in a.m. Hypertension Antihypertensives titrated Continue home medications and titrate as needed Hyperlipidemia Continue statin Diabetes Insulin sliding scale Accu-Chek before every meal and at bedtime Hyponatremia IV hydration Monitor electrolytes and replace accordingly Depression Anxiety Continue home medications and titrate as needed. GI/DVT prophylaxis Advanced directive full code Discharge Plan: Home Plan to discharge in: 48 Hours - Advance Directives Does patient have a Living Will: No Does patient have a Durable POA for Healthcare: No - Code Status/Comfort Care Code Status: Full Code
[2025-05-15 08:26] VITALS: TEMP 97.7
--- NOTE | 2025-05-15 09:56 | P.DS ---
Admission Date: 05/10/25 Discharge Date: 05/15/25 Disposition: DC HOME/HOME HEALTH CARE Discharge Condition: GOOD Reason for Admission: Cellulitis Brief History of Present Illness: 49-year-old female with past medical history of diabetes, hypertension, hyperlipidemia, neuropathy, anxiety, bipolar disorder, depression, peripheral vascular disease who had left BKA amputation previously brought to ER with pain and swelling on the left BKA stump. Patient complains of pain and swelling and redness which started 2 to 3 days ago and has been progressively getting worse. No fever or chills. No history of trauma. Patient has been using orthotics which is ill fitting. Denies any nausea vomiting or diarrhea. Patient was assessed in the ERadmitted for further management of cellulitis. Upon admission general surgery was consulted and she was placed on IV antibiotic. She underwent left BKA with drainage of abscess on 05/13/25. Her clinical condition improved over the course of her stay. Her wound cultures were growing staph prior to discharge. She will be discharged with doxycycline and follow-up with her PCP and general surgeon. Remainder of her medical problems are chronic and stable. She is medically optimized for discharge Hospital Course: Physical Examination - Vital Signs Temperature: 97.8 F Blood Pressure: 142/76 Pulse: 78 Respirations: 18 Pulse Ox (%): 94 - Physical Exam General: Alert, In no apparent distress, Oriented x3 HEENT: Atraumatic, Normocephalic Neck: Supple Respiratory: Clear to auscultation bilaterally, Normal air movement Cardiovascular: Regular rate/rhythm, Normal S1 S2 Capillary refill: <2 Seconds Gastrointestinal: Soft and benign, W/out hepatosplenomegaly Musculoskeletal: No clubbing, Erythema, Tenderness, Warmth Integumentary: No rashes, Tenderness/swelling, Erythema, Warmth Neurological: Other (Alert awake nonfocal) Lymphatics: No axilla or inguinal lymphadenopathy - Studies Laboratory Data (last 24 hrs) 05/10/25 05/10/25 02:45 02:45 WBC 12.10 H Hgb 14.0 Hct 41.6 Plt Count 422 H Sodium 130 L Potassium 4.1 BUN 13 Creatinine 0.66 Glucose 395 H Total Bilirubin 0.4 AST < 10 L ALT 16 Alkaline Phosphatase 105 Assessment and Plan 05/14 - Doing well - PT/OT eval - Labs reviewed - Appreciate general surgery recommendations - Continue pain control - May need home health versus prison placement 05/13 - I&D of left BKA stump by Dr. Ford - Continue pain control - Leukocytosis result - Continue Vanco and Rocephin - Continue sliding scale insulin - Pain control with morphine and [place] Left BKA stump cellulitis Pain control Started on IV antibiotic Will obtain cultures Change antibiotic as per sensitivity X-ray findings noted Will consult surgery Elevated CRP found Leukocytosis present Will get CBC in a.m. Hypertension Antihypertensives titrated Continue home medications and titrate as needed Hyperlipidemia Continue statin Diabetes Insulin sliding scale Accu-Chek before every meal and at bedtime Hyponatremia IV hydration Monitor electrolytes and replace accordingly Depression Anxiety Continue home medications and titrate as needed. GI/DVT prophylaxis Advanced directive full code Discharge Plan: Home Plan to discharge in: 48 Hours - Advance Directives Does patient have a Living Will: No Does patient have a Durable POA for Healthcare: No - Code Status/Comfort Care Code Status: Full Code Vital Signs/Physical Exam: Temp Pulse Resp BP Pulse Ox 97.7 F 103 H 18 154/89 H 99 05/15/25 08:00 05/15/25 08:00 05/15/25 08:00 05/15/25 08:00 05/15/25 08:00 Laboratory Data at Discharge: WBC 7.10 thou/uL (4.3-10.9) 05/14/25 09:30 Hgb 14.1 g/dL (12.0-15.0) 05/14/25 09:30 Hct 41.3 % (36.0-45.0) 05/14/25 09:30 Plt Count 424 thou/uL (152-406) H 05/14/25 09:30 Sodium 135 mEq/L (136-145) L 05/14/25 09:30 Potassium 3.9 mEq/L (3.5-5.1) D 05/14/25 09:30 BUN 5 mg/dL (7-18) L 05/14/25 09:30 Creatinine 0.68 mg/dL (0.55-1.02) 05/14/25 09:30 Glucose 270 mg/dL (74-106) H 05/14/25 09:30 Total Bilirubin 0.4 mg/dL (0.2-1.0) 05/14/25 09:30 AST 28 U/L (15-37) 05/14/25 09:30 ALT 29 U/L (13-56) 05/14/25 09:30 Alkaline Phosphatase 76 U/L (45-117) 05/14/25 09:30 Home Medications: RX: Citalopram Hydrobromide [Celexa] 1 tab PO DAILY 05/10/25 RX: Dapagliflozin Propanediol [Farxiga] 1 tab PO DAILY 05/10/25 RX: Insulin Lispro [Humalog] See Rx Instructions .ROUTE .COMPLEX 05/10/25 RX: Lurasidone HCl [Latuda] 1 tab PO BEDTIME 05/10/25 RX: Pregabalin [Lyrica] 1 tab PO BID 05/10/25 RX: Trazodone HCl 100 mg PO DAILY 05/10/25 RX: hydrOXYzine HCL [Hydroxyzine HCl Inj] 100 tab PO DAILY 05/10/25 RX: Doxycycline Hyclate 100 mg PO BID 10 Days #20 tab 05/15/25 RX: Hydrocodone 5/APAP 325 [[place] 5/325*] 1 tab PO Q4H PRN 5 Days #30 tab 05/15/25 New Medications: RX: Doxycycline Hyclate 100 mg PO BID 10 Days #20 tab RX: Hydrocodone 5/APAP 325 [[place] 5/325*] 1 tab PO Q4H PRN 5 Days #30 tab PRN Reason: Pain Scale 5-7 (Moderate) Followup: Tanvir Ford MD [ACTIVE - CAN ADMIT] - 1 Week BERNIE ESTEVEZ [Primary Care Provider] - 2-3 Days
[2025-05-15 12:22] VITALS: BP 138/80
== END 2025-05-15 12:41 | disposition home health service (06) | DRG 464 ==
LOC: ER 01:01 → ERHOLD 05:52 → 4TH 06:46
PROVIDERS: ADMIT Family Medicine; ATTEND Family Medicine
PROC: 0JBP0ZZ Excision of Left Lower Leg Subcutaneous Tissue and Fascia, Open Approach (ICD-10-PCS; principal; 2025-05-13 11:30)
DX: T87.44 Infection of amputation stump, left lower extremity (principal); E87.1 Hypo-osmolality and hyponatremia; L03.116 Cellulitis of left lower limb; F41.9 Anxiety disorder, unspecified; E78.00 Pure hypercholesterolemia, unspecified; I10 Essential (primary) hypertension; F31.9 Bipolar disorder, unspecified; E11.40 Type 2 diabetes mellitus with diabetic neuropathy, unspecified; E11.51 Type 2 diabetes mellitus with diabetic peripheral angiopathy without gangrene; Z28.310 Unvaccinated for COVID-19; Z89.512 Acquired absence of left leg below knee
CPT/HCPCS: 36415; 73552; 73701; 80048; 80053; 80202; 81003; 81025; 82947; 83605; 85025; 86140; 87040; 87070; 87075; 87077; 87186; 87205; 88304; 96372; 97116; 97161; 97165; 97530; 99285; J0692; J0696; J1650; J1815; J2003; J2250; J2270; J2405; J2704; J3010; J3370; J3590; J7030; J7040; J7050; Q9967